=== PATIENT | male | born 1955 ===

== ENCOUNTER 2022-11-04 07:06 | Outpatient (REF) | payer MEDICARE, MEDICAID, SELFPAY ==
--- NOTE | ~2022-11-04 | XR_ITS ---
EXAMINATION: XR HIP, LEFT CLINICAL INFORMATION: M25.552 - Pain in left hip COMPARISON: None TECHNIQUE: Two views of the left hip. FINDINGS: No fracture, dislocation, destructive process. No definite hip joint narrowing. No erosive change or chondrocalcinosis. Lower left SI joint and pubis are unremarkable. XR/XR hip LT min 2V IMPRESSION: Unremarkable left hip.
[2022-11-04 07:19] LABS: MANUAL DIFF FLAG NO
[2022-11-04 07:34] LABS: Basophils Absolute Auto 0.1 X10*3/uL (0.0-0.2); Basophils Percent Auto 1.2 % (0-2); Eosinophils Absolute Auto 0.5 X10*3/uL (0.0-0.4); Eosinophils Percent Auto 6.8 % (0-4); Hematocrit 42.9 % (42.0-52.0); Hemoglobin 14.4 g/dl (14.0-18.0); Imm Gran Abs Auto 0.01 X10*3/uL (0.00-0.03); Imm Gran Pct Auto 0.1 % (0.0-0.4); Lymphocytes Absolute Auto 2.2 X10*3/uL (1.2-4.9); Lymphocytes Percent Auto 28.9 % (20-40); Mean Corpuscular HGB Conc 33.6 g/dl (31.0-36.0); Mean Corpuscular Hemoglobin 29.6 pg (27.0-33.0); Mean Corpuscular Volume 88.1 fL (80.0-98.0); Mean Platelet Volume 9.3 fL (9.4-12.4); Monocytes Absolute Auto 0.8 X10*3/uL (0.1-1.2); Monocytes Percent Auto 10.6 % (2-11); Neutrophils Percent Auto 52.4 % (45-73); Platelet Count 338 X10*3/uL (160-400); Red Blood Count 4.87 X10*6/uL (4.60-5.80); Red Cell Distribution Width 13.4 % (11.0-16.0); White Blood Count 7.7 X10*3/uL (4.8-10.8)
[2022-11-04 08:14] LABS: Alanine Aminotransferase 24 U/L (0-40); Albumin Level 4.4 g/dL (3.5-5.0); Alkaline Phosphatase 71 U/L (39-117); Anion Gap 10 (12-20); Aspartate Amino Transferase 22 U/L (5-37); Bilirubin Total 0.6 mg/dL (0.0-1.0); Blood Urea Nitrogen 19 mg/dL (9-16); Calcium 9.5 mg/dL (8.4-10.2); Carbon Dioxide 29 mmol/L (22-29); Chloride 107 mmol/L (96-108); Cholesterol 170 mg/dL; Estimated Glomerular Filt Rate 58; Glucose Random 97 mg/dL (60-115); HDL Cholesterol 55 mg/dL; LDL Cholesterol Calculated 98 mg/dl; Potassium 4.7 mmol/L (3.3-5.1); Sodium 141 mmol/L (135-145); Total Protein 6.8 g/dL (6.5-8.0); Triglycerides 86 mg/dL
[2022-11-04 08:32] LABS: PSA,Total (Free>4and<10) 14.51 ng/mL (0.00-4.00); TSH reflex Free T4 1.48 uIU/mL (0.32-4.0)
== END 2022-11-04 07:07 | disposition home or self-care (01) ==
LOC: HO.LAB 07:06
PROVIDERS: PCP Internal Medicine; Visit Provider Nurse Practitioner Family
DX: I10 Essential (primary) hypertension (principal); R97.20 Elevated prostate specific antigen [PSA]; M25.552 Pain in left hip; E78.00 Pure hypercholesterolemia, unspecified; Z13.29 Encounter for screening for other suspected endocrine disorder; Z12.5 Encounter for screening for malignant neoplasm of prostate
CPT/HCPCS: 36415; 73502; 80053; 80061; 84153; 84443; 85025

== ENCOUNTER 2022-11-11 08:27 | Outpatient (REF) | payer MEDICARE, MEDICAID, SELFPAY ==
[2022-11-11 16:21] LABS: Urine Cytology See Pathology rpt
== END 2022-11-11 08:28 | disposition home or self-care (01) ==
LOC: HO.LAB 08:27
PROVIDERS: PCP Internal Medicine; Visit Provider Nurse Practitioner Family
DX: Z13.9 Encounter for screening, unspecified (principal); R97.20 Elevated prostate specific antigen [PSA]
CPT/HCPCS: 88112; 99202

== ENCOUNTER 2022-11-12 09:06 | Outpatient (REF) | payer MEDICARE, MEDICAID, SELFPAY ==
[2022-11-12 11:05] LABS: PSA,Total (Free>4and<10) 6.81 ng/mL (0.00-4.00)
[2022-11-17 14:04] LABS: Free Prostate Spec Ag 1.6 ng/mL; Percent Free Prostate Spec Ag 27 % (calc) (>25)
== END 2022-11-12 09:07 | disposition home or self-care (01) ==
LOC: HO.LAB 09:06
PROVIDERS: PCP Internal Medicine; Referring Provider Internal Medicine; Visit Provider Nurse Practitioner Family
DX: Z12.5 Encounter for screening for malignant neoplasm of prostate (principal); R97.20 Elevated prostate specific antigen [PSA]
CPT/HCPCS: 36415; 84153; 84154

== ENCOUNTER 2022-11-17 10:30 | Outpatient (REF) | payer MEDICARE, MEDICAID, SELFPAY ==
--- NOTE | 2022-11-17 11:07 | PFT_ITS ---
FLOWS: 1. FEV1 97% of predicted at 3.18 L. 2. FVC 84% of predicted at 3.70 L. 3. FEV1 to FVC ratio 0.86. 4. No bronchodilator response. LUNG VOLUMES: 1. Total lung capacity 85% of predicted at 5.82 L. 2. Residual volume 75% of predicted at 1.75 L. 3. Slow vital capacity 90% of predicted at 4.08 L. 4. Expiratory reserve volume 47% of predicted at 0.60 L. 5. Diffusion capacity is normal. IMPRESSION: No obstructive or restrictive ventilatory defect. No bronchodilator response. Essentially normal pulmonary function test. MD ARACELIS Lou/MODL / [id number]
== END 2022-11-17 10:31 | disposition home or self-care (01) ==
LOC: HO.RESP 10:30
PROVIDERS: Visit Provider Nurse Practitioner Family
DX: R06.2 Wheezing (principal); M65.331 Trigger finger, right middle finger
CPT/HCPCS: 94060; 94727; 94729

== ENCOUNTER → 2022-11-20 09:21 | Outpatient (BNVA) | payer MEDICARE, MEDICAID, SELFPAY | PROVIDERS: PCP Internal Medicine; Visit Provider Nurse Practitioner Family | DX: R97.20 Elevated prostate specific antigen [PSA] (principal) | CPT/HCPCS: Q3014 ==

== ENCOUNTER → 2022-12-16 07:55 | Outpatient (BNVA) | payer MEDICARE, MEDICAID, SELFPAY | PROVIDERS: PCP Internal Medicine; Visit Provider Orthopaedic Surgery | DX: M65.331 Trigger finger, right middle finger (principal); R20.0 Anesthesia of skin | CPT/HCPCS: 20550; 99202; J1100 ==

== ENCOUNTER 2023-03-20 07:03 | Outpatient (REF) | payer MEDICARE, MEDICAID, SELFPAY ==
[2023-03-20 08:28] LABS: Prostate Specific Antigen 10.33 ng/mL (<0.05-4.0)
== END 2023-03-20 07:04 | disposition home or self-care (01) ==
LOC: HO.LAB 07:03
PROVIDERS: PCP Internal Medicine; Visit Provider Nurse Practitioner Family
DX: Z12.5 Encounter for screening for malignant neoplasm of prostate (principal); R97.20 Elevated prostate specific antigen [PSA]
CPT/HCPCS: 36415; 84153

== ENCOUNTER 2023-03-22 08:56 | Outpatient (AMB) | payer MEDICARE, MEDICAID, SELFPAY ==
--- NOTE | 2023-03-22 09:25 | MHC.OFFVIS ---
Intake Intake Visit Reasons: 4m/labs Intake Note: Patient is present for for follow up Elevated PSA (psa 10.33) Urology Medications: none Blood Thinner: none Drivability Technician Required: No Accompanied by: Self / Same As Patient Allergies No Known Allergies Allergy (Verified 03/22/23 10:17) Medication List - Last Reconciled 03/22/23 by CARLOZ Nichols atorvastatin 20 mg PO DAILY levofloxacin 500 mg PO daily 3 days lisinopril-hydrochlorothiazide 20-12.5 mg 1 tab PO DAILY HPI HPI Comments History of Present Illness Details Jim is a pleasant 67-year-old male patient of . He is being followed-up on today for elevated PSA. Of note, patient was seen approximately 4 months ago at which time his PSA had went down from 14.5 to 6.8 after treatment of prostatitis. Patient with previous KAREL noted to be boggy on left side. Patient presents to the office today for 4 month follow-up at which time his PSA has increased to 10.3 from 6.8. Of note, patient had previously been experiencing urinary issues. However, he denies any urinary issues at this time he reports since he finished antibiotic therapy for presumed prostatitis his symptoms have since subsided. He denies any known family history of prostate cancer. Discussed at length surveillance monitoring versus prostate biopsy verses MRI of the prostate for further assessment evaluation. Discussed risks and benefits of these interventions. At this time patient discusses he would like to have prostate biopsy performed. Discussed risks and benefits at length of prostate biopsy. PSAs are as follows: 11/04/22--14.5 11/12/22--6.8 with percent free 27% 03/20/23--10.3 When asked patient denies denies urinary urgency, urinary frequency, incontinence, nocturia, hematuria, dysuria, foul smelling urine, changes to urinary stream, flank pain, fever, and or chills. He is happy with his current voiding parameters. Patient discusses upcoming travel to [place] to visit his daughter who is 8 and will be celebrating his 68th birthday there. In office urinalysis results reviewed with the patient today. He otherwise offers no issues or concerns at this time. [facility] Medical History Depression Neck pain with history of cervical spinal surgery Trigger finger, right middle finger Urinary urgency Viral upper respiratory illness Wheezing Surgical History History of cholecystectomy Hx of tonsillectomy S/P right knee arthroscopy Family History Mother Breast cancer, Onset Age: 45 Asthma Father Type 1 diabetes Kidney transplanted HTN (hypertension) Sister Depression Maternal Grandmother Pancreatic cancer Maternal Aunt Pancreatic cancer Paternal Grandfather Type 2 diabetes Paternal Uncle Type 2 diabetes Social History Household Members: Spouse Housing: House Are you a primary healthcare consultant to a significant other at home: No Do you presently have visiting nurse or other home services: No 75 years or older and lives alone: No Alcohol intake: current Alcohol intake frequency: other Patient Tobacco Use Status: Never used Tobacco service: No Current occupational status: retired Current occupation: rt hand Cognitive needs: No Hearing needs: No Vision needs: Yes (glasses ) Review of Systems Const All systems reviewed & are unremarkable except as noted in HPI and below Reports as per HPI Eyes Reports no additional complaints ENT Reports no additional complaints Card Reports no additional complaints Resp Reports no additional complaints GI Reports no additional complaints Reports as per HPI Musc Reports no additional complaints Neuro Reports no additional complaints Psych Reports no additional complaints Endo Reports no additional complaints Edwin/Lymph Reports no additional complaints Aller/Immun Reports no additional complaints Physical Exam Const General: cooperative, healthy appearing, comfortable, no acute distress, well developed, alert and awake Orientation/consciousness: patient oriented x3 Limitations: no limitations HEENT Head: Yes normal to inspection, Yes normocephalic and Yes atraumatic Eyes General: appearance normal, both eyes and all related structures Neck Neck: Yes normal visual inspection and Yes trachea midline Chest Chest palpation & inspection: normal inspection of the chest Resp Effort & Inspection: normal respiratory effort and able to speak in complete sentences Cardio Rate: regular rate GI Inspection: Yes normal to inspection General: Yes no CVA tenderness Back/Spine/Pelvis Back: no CVA tenderness Skin General skin exam: no rashes or lesions noted Neuro General: patient oriented x3 Extrem General: Yes normal to inspection Psych Appearance: grossly normal Mental Status: mental status grossly normal Speech and movement: Normal speech and movement present and Clear speech present Affect: normal affect Attitude: cooperative Thought process: Normal thought process present Thought content: Normal thought content present Insight: Good insight present (Psych) Judgement: Good judgement present (Psych) Results AMB Urinalysis, Automated UA Leukoctes 125 Kendall/uL Last Edit by Francheska Mike on 03/22/23 09:50 UA Nitrite Last Edit by Francheska Mike on 03/22/23 09:50 UA Urobilinogen 0.2 mg/dL Last Edit by Francheska Mike on 03/22/23 09:50 UA Protein 0 mg/dL Last Edit by Francheska Mike on 03/22/23 09:50 UA pH 5.5 Last Edit by Francheska Mike on 03/22/23 09:50 UA Blood 25 Jigar/uL Last Edit by Francheska Mike on 03/22/23 09:50 UA Specific [place] 1.015 Last Edit by Francheska Mike on 03/22/23 09:50 UA Ketone Negative Last Edit by Francheska Mike on 03/22/23 09:50 UA Bilirubin 0 mg/dL Last Edit by Francheska Mike on 03/22/23 09:50 UA Glucose 0 mg/dL Last Edit by Francheska Mike on 03/22/23 09:50 Results Reviewed Results Reviewed: Laboratory Last Values Urine pH (Auto) 5.5 03/22/23 09:28 Specific [place] (Auto) 1.015 03/22/23 09:28 Urine Protein (Auto) 0 mg/dL 03/22/23 09:28 Glucose (UA)(Auto) 0 mg/dL 03/22/23 09:28 Urine Ketones (Auto) Negative 03/22/23 09:28 Urine Blood (Auto) 25 Jigar/uL 03/22/23 09:28 Urine Bilirubin (Auto) 0 mg/dL 03/22/23 09:28 Urine Urobilinogen (Auto) 0.2 mg/dL 03/22/23 09:28 Leukocyte Esterase (Auto) 125 Kendall/uL 03/22/23 09:28 Assessment & Plan Assessment & Plan (1) Elevated PSA: Code(s): R97.20 - Elevated prostate specific antigen [PSA] Plan: Plan Risks and benefits regarding trans rectal ultrasound with prostate biopsy were discussed.? Options of continued surveillance, no treatment and biopsy were offered. The risks include but are not limited to, urinary tract infection, sepsis, difficulty urinating, bleeding into the rectum or bladder that requires intervention and transfusion,and failure to diagnose prostate cancer. The patient understands the options and the risks involved. They wish to proceed. Printed information was provided to ensure he remains off anticoagulation for the appropriate length of time. He may require cardiology or PCP clearance.? An antibiotic will be administered prior to, and following the procedure Plan In office urinalysis results reviewed with the patient today. Recent PSA results reviewed with the patient today. Discussed at length surveillance monitoring verses MRI of the prostate verses prostate biopsy; discussed risks and benefits of all mentioned interventions. Discussed antibiotic therapy day before, day of, and day after procedure; prescription provided Patient denies any urinary issues or concerns at this time; he is happy with his current voiding parameters Will schedule for prostate biopsy as discussed; follow-up status post prostate biopsy per Dr. King's orders; or sooner with any issues, concerns, and or questions. Orders: Orders AMB Urinalysis Automated Today Z13.9 - Encounter for screening, unspecified Medications: New levofloxacin take 1 tablet day before procedure, 1 tablet day of procedure and 1 tablet day after procedure 500 mg PO daily 3 days 3 tabs 0RF Patient Instructions: The patient had an opportunity to ask questions regarding the treatment plan. All questions were answered. Physical exam, labs, and imaging were discussed and reviewed in detail. As well as risks, benefits, and discussion of treatment choices. No major barriers to understanding were identified. The patient expressed understanding and agreement with the above treatment plan. The patient was made aware they should contact our office by phone for worsening of their current condition, the appearance of new symptoms, or with any questions or concerns. Compliance is encouraged with any medications and follow up testing that is ordered. It is a privilege to be allowed the opportunity to participate in? your urological care.? Again, if you have any questions or concerns If you have any questions or concerns please do not hesitate to contact me. The office is [phone]. This note is constructed using voice recognition software. While every effort has been made to ensure accuracy chlorine cells operator errors may have been included. Yours sincerely, CARLOZ Nichols Coding Level of Care Code Est Pt Level 4 (61673) Diagnoses Elevated PSA R97.20
== END 2023-03-22 09:57 | disposition home or self-care (01) ==
PROVIDERS: Visit Provider Nurse Practitioner Family
DX: R97.20 Elevated prostate specific antigen [PSA] (principal)
CPT/HCPCS: 99214

== ENCOUNTER → 2023-03-22 08:56 | Outpatient (BNVA) | payer MEDICARE, MEDICAID, SELFPAY | PROVIDERS: Visit Provider Nurse Practitioner Family | DX: R97.20 Elevated prostate specific antigen [PSA] (principal) | CPT/HCPCS: 99212 ==

== ENCOUNTER 2023-03-23 12:27 | Outpatient (AMB) | payer MEDICARE, MEDICAID, SELFPAY ==
[2023-03-23 12:59] VITALS: BMI 25.4
--- NOTE | 2023-03-23 12:59 | MHC.OFFVIS ---
Intake Vital Signs 03/23/23 12:59 Height 5 ft 9 in Weight 172 lb BMI 25.4 Intake Visit Reasons: O/V S/P RT MF trig inj/ inj didnt help Intake Note: Jim 67 yr old male presents today s/p Right middle finger injection from 12/16/22. states injection helped somewhat with pain but finger continues to lock. Patient would like to discuss surgery but will not be ready until July. Allergies No Known Allergies Allergy (Verified 03/22/23 10:17) HPI O/V S/P RT MF trig inj/ inj didnt help HPI Details Jim is a 67 year old right hand dominant man who presents for a follow up of his right middle trigger finger, S/P injection on 12/16/22. He says this injection helped somewhat but his finger continues to lock painfully. His locking is mostly in the mornings and he continues to have some soreness. He would like to have surgery but would not be ready until July while he is golfing. [facility] Medical History Depression Neck pain with history of cervical spinal surgery Trigger finger, right middle finger Urinary urgency Viral upper respiratory illness Wheezing Surgical History History of cholecystectomy Hx of tonsillectomy S/P right knee arthroscopy Family History Mother Breast cancer, Onset Age: 45 Asthma Father Type 1 diabetes Kidney transplanted HTN (hypertension) Sister Depression Maternal Grandmother Pancreatic cancer Maternal Aunt Pancreatic cancer Paternal Grandfather Type 2 diabetes Paternal Uncle Type 2 diabetes Social History Household Members: Spouse Housing: House Are you a primary care center manager to a significant other at home: No Do you presently have visiting nurse or other home services: No 75 years or older and lives alone: No Alcohol intake: current Alcohol intake frequency: other Patient Tobacco Use Status: Never used Tobacco service: No Current occupational status: retired Current occupation: rt hand Cognitive needs: No Hearing needs: No Vision needs: Yes (glasses ) Review of Systems Const All systems reviewed & are unremarkable except as noted in HPI and below Physical Exam Vital Signs: BMI result Body Mass Index 25.4 Const General: no acute distress and alert Orientation/consciousness: patient oriented x3 Neuro General: patient oriented x3 Extrem Other: Evaluation of Right Upper Extremity: The patient is alert, oriented, and in no acute distress Neuro: Dense numbness to the pad of his left thumb, normal sensation to the tips of all other digits bilaterally No thenar or intrinsic wasting Good APB muscle belly firing and good finger cross Vascular: Cap refill brisk ROM: He can make a fist and extend all his digits Visible locking and catching of the middle finger Tender over the a1 macy of the middle finger Small bump over the middle finger a1 macy that may be a possible retinacular cyst Psych Appearance: grossly normal Affect: normal affect Attitude: cooperative Assessment & Plan Assessment & Plan (1) Trigger finger, right middle finger: Code(s): M65.331 - Trigger finger, right middle finger (2) Numbness of left thumb: Code(s): R20.0 - Anesthesia of skin Plan Assessment & Plan: 1. Right middle trigger finger, S/P injection Date of Injection: 12/16/22 I educated him about this condition I discussed operative and non operative treatment options. 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 Left thumb numbness Dense numbness to the pad of the thumb only, constant, and present since at least 2017 and did not change following his C-spine fusion. Normal sensation to all other digits No intervention necessary at this time. I educated him on the symptoms of carpal tunnel syndrome, if any other fingers begin to experience numbness, intermittent but daily, then he should contact the clinic to discuss a NCS Scribed for Rose Marie Diaz MD by Fransico Jaramillo, medical and health services manager, on 03/23/23 at 1:35 PM, EST. Coding Level of Care Code Est Pt Level 3 (96600) Diagnoses Trigger finger, right middle finger M65.331 Numbness of left thumb R20.0
== END 2023-03-23 13:43 | disposition home or self-care (01) ==
PROVIDERS: PCP Internal Medicine; Visit Provider Orthopaedic Surgery
DX: M65.331 Trigger finger, right middle finger (principal); R20.0 Anesthesia of skin
CPT/HCPCS: 99213

== ENCOUNTER → 2023-03-23 12:27 | Outpatient (BNVA) | payer MEDICARE, MEDICAID, SELFPAY | PROVIDERS: PCP Internal Medicine; Visit Provider Orthopaedic Surgery | DX: M65.331 Trigger finger, right middle finger (principal); R20.0 Anesthesia of skin | CPT/HCPCS: 99212 ==

== ENCOUNTER 2023-06-28 09:36 | Outpatient (AMB) | payer MEDICARE, SELFPAY ==
--- NOTE | 2023-06-28 09:37 | A.OFFPC_ITS ---
Vital Signs 06/28/23 09:38 Height 5 ft 9 in Weight 170 lb 0.2 oz BMI 25.1 BP 166/90 H Blood Pressure Location Lt brachial Position Sitting Pulse 70 Pulse Source Pulse Oximeter Temp Source Skin Pulse Oximetry (%) 97 Oxygen Delivery Method Room Air Intake Visit Reasons: Annual exam Intake Note: Patient is here today for a physical. Director Software Development Required: No Allergies No Known Allergies Allergy (Verified 06/28/23 09:38) Medication List - Last Reconciled 06/28/23 by Refugio Maddox MD atorvastatin 20 mg PO DAILY lisinopril-hydrochlorothiazide 20-25 mg 1 tab PO DAILY Tobacco use date assessed: 06/28/23 Fall risk assessment: No Falls in past year Last assessed Fall Risk: 06/28/23 Dental Screening Dental Screen Date: 06/28/23 Did you have a dental visit in the last 12 months?: Yes Did you have a dental problem in the last 6 months where you did not have access to dental care?: No Was dental information given to patient?: Patient has dentist HPI Annual exam HPI Details 68-year-old male with hypertension hyper cholesterolemia elevated PSA and renal insufficiency coming in for physical exam. Last seen in November 2022. Last colonoscopy 2014. Review of the notes in March 2023 has seen orthopedics for follow-up on right middle finger injection for trigger finger December 2022 patient was advised surgery also noted small bump of middle finger the right possibly written ocular cyst concern also about a left thumb carpal tunnel syndrome. As for the elevated PSA follows up with urology antibiotic treatment done. prostate biopsy 2 weeks . R middle finger - trigger finger surgery. R thumb numbness- not better. decline pneumonia shot, flu shot COVID-19 Concern that the blood pressure is high PFSH Medical History Depression Neck pain with history of cervical spinal surgery Trigger finger, right middle finger Urinary urgency Viral upper respiratory illness Wheezing Surgical History History of cholecystectomy Hx of tonsillectomy S/P right knee arthroscopy Family History Mother Breast cancer, Onset Age: 45 Asthma Father Type 1 diabetes Kidney transplanted HTN (hypertension) Sister Depression Maternal Grandmother Pancreatic cancer Maternal Aunt Pancreatic cancer Paternal Grandfather Type 2 diabetes Paternal Uncle Type 2 diabetes Social History (Updated 06/28/23 @ 10:06 by Refugio Maddox MD) Household Members: Spouse Housing: House Are you a primary health care coach to a significant other at home: No Do you presently have visiting nurse or other home services: No 75 years or older and lives alone: No Alcohol intake: current Alcohol intake frequency: other Patient Tobacco Use Status: Never used Tobacco service: No Current occupational status: retired Current occupation: rt hand Cognitive needs: No Hearing needs: No Vision needs: Yes (glasses ) Questionnaire PHQ-9 Over the last 2 weeks, how often have you been bothered by any of the following problems? 1. Little interest or pleasure in doing things: not at all 2. Feeling down, depressed, or hopeless: several days 3. Trouble falling or staying asleep, or sleeping too much: not at all 4. Feeling tired or having little energy: not at all 5. Poor appetite or overeating: not at all 6. Feeling bad about yourself - or that you are a failure or have let yourself or your family down: not at all 7. Trouble concentrating on things, such as reading the newspaper or watching television: not at all 8. Moving or speaking so slowly that other people could have noticed. Or the opposite - being so fidgety or restless that you have been moving around a lot more than usual: not at all 9. Thoughts that you would be better off or of hurting yourself in some way: not at all Total score: 1 Depression Screening Interpretation: Positive Depression Screening Done: Yes Source: Developed by Drs. Jimy Head, Elizabeth Lay, Christopher Donahue and colleagues, with an educational niko from [employer]. Thrive Questionnaire Date Thrive assessed: 11/03/22 AUDIT C Alcohol Use Questionnaire (AUDIT-C) 1. How often do you have a drink containing alcohol?: Never 3. How often do you have six or more drinks on one occasion?: Never Total Score: 0 JUAN J-7 AMB Questionnaire JUAN J-7 Date JUAN J - 7 assessed: 06/28/23 Feeling nervous, anxious, or on edge: 1 = Several days Not being able to stop or control worryin = Several days Worrying too much about different things: 0 = Not at all Trouble relaxin = Not at all Being so restless that it is hard to sit still: 0 = Not at all Becoming easily annoyed or irritable: 0 = Not at all Feeling afraid as if something awful might happen: 0 = Not at all Total JUAN J-7 score (0-4 normal; 5-9 mild; 10-14 moderate; 15-21 severe): 2 Source: Developed by Drs. Jimy Head, Elizabeth Lay, Christopher Donahue and colleagues, with an educational niko from [employer]. Review of Systems Const Denies poor appetite and Denies weakness Eyes Denies no additional complaints ENT Reports Normal hearing present, Denies dizziness, Denies nasal congestion, Denies tinnitus and Denies sore throat Card Denies chest pain, Denies syncope, Denies rapid heart rate and Denies dyspnea Resp Denies cough and Denies dyspnea GI Denies change in stool character, Reports constipation, Denies diarrhea, Denies nausea and Denies vomiting Denies dysuria and Denies urinary frequency Neuro Reports Normal hearing present, Denies confusion, Denies dizziness, Denies syncope and Denies weakness Psych Denies confusion Physical exam (Primary Care) Vital Signs: Last Vital Signs Pulse 70 06/28/23 09:38 BP 166/90 H 06/28/23 09:38 Pulse Ox 97 06/28/23 09:38 Oxygen Delivery Method Room Air 06/28/23 09:38 BMI result Body Mass Index 25.1 Tobacco/Smoking Status: Tobacco use Status Tobacco use date assessed 06/28/23 06/28/23 09:39 Patient Tobacco Use Status Never used Tobacco 06/28/23 09:39 PHQ-9: PHQ-9 Score PHQ-9: Total score 1 06/28/23 10:00 Depression Screening Interpretation: Positive Thrive Assessment: Date of Thrive Assessment Date Thrive assessed 11/03/22 06/28/23 09:39 Const General: No confusion Orientation/consciousness: No confusion HENMT Head: Yes normocephalic Ears: external ears normal and TM's normal bilaterally Face and sinus: Yes normal facial exam Mouth: moist mucous membranes Throat: Yes tonsils normal Eyes Conjunctivae: conjunctivae normal Pupils: Equal, round and reactive pupils present and Pupil accommodation reflex normal Direct Ophthalmoscopy: normal light reflex Neck Neck: No lymphadenopathy Thyroid: Thyroid normal Chest Chest palpation & inspection: normal inspection of the chest Resp Effort & Inspection: normal respiratory effort and no audible wheezes Auscultation: clear to auscultation bilaterally, no crackles, no wheezes and lung sounds not diminished Cardio Rate: regular rate Rhythm: regular rhythm Peripheral pulses: radial pulses present and dorsalis pedis present GI Other: guaiac negative prostate enlarged Palpation (GI): no masses Auscultation: normal bowel sounds and normoactive bowel sounds Rectal Exam - Male: Yes deferred Male General Exam: Yes normal external exam Skin General skin exam: no rashes or lesions noted Rashes: no rashes Neuro General: No confusion Cranial nerves: Yes Equal, round and reactive pupils present and Yes Normal hearing present Cognition (Neuro): normal cognition Gait exam (Neuro): Normal gait present Motor exam (neuro): 5/5 motor strength present throughout Deep tendon reflexes (DTR's): Right brachioradialis reflex intensity grade: 2+, Left brachioradialis reflex intensity grade: 2+, Right patellar reflex intensity grade: 2+ and Left patellar reflex intensity grade: 2+ Extrem General: No edema Assessment and Plan Assessment & Plan (1) Annual physical exam: Code(s): Z00.00 - Encounter for general adult medical examination without abnormal findings (2) Hypertension: Code(s): I10 - Essential (primary) hypertension Plan: Continue with blood pressure medication. Decrease salt intake and exercise patient on lisinopril hydrochlorothiazide 20/12.5 mg once a day (3) Hypercholesteremia: Code(s): E78.00 - Pure hypercholesterolemia, unspecified Plan: Avoid fried foods, chicken skin, eggs, butter margarine, pastries and meat. Be it pork or beef they have a lot of cholesterol LDL goal of less than 130 and triglyceride of less than 150. Patient on atorvastatin 20 mg once a day (4) Trigger finger, right middle finger: Code(s): M65.331 - Trigger finger, right middle finger Plan: Patient follows up with orthopedic status post surgery (5) Elevated PSA: Code(s): R97.20 - Elevated prostate specific antigen [PSA] Plan: Patient follows up with urology also was given an antibiotic treated for prostatitis (6) Numbness of left thumb: Code(s): R20.0 - Anesthesia of skin (7) Prostate enlargement: Code(s): N40.0 - Benign prostatic hyperplasia without lower urinary tract symptoms Plan: PAtent is scheduled to have a biopsy Medications: New lisinopril-hydrochlorothiazide 20-25 mg 1 tab PO DAILY 30 tabs 3RF I10 - Essential (primary) hypertension Refilled atorvastatin 20 mg PO DAILY 90 tabs 3RF I10 - Essential (primary) hypertension Discontinued lisinopril-hydrochlorothiazide 20-12.5 mg Discontinued Reason: Doctor's Order 1 tab PO DAILY 30 tabs 6RF I10 - Essential (primary) hypertension Coding Level of Care Code Est Pt Prev Care >65y(60814) Diagnoses Annual physical exam Z00.00 Hypertension I10 Hypercholesteremia E78.00 Trigger finger, right middle finger M65.331 Elevated PSA R97.20 Numbness of left thumb R20.0 Prostate enlargement N40.0
[2023-06-28 09:38] VITALS: BP 166/90; PULSE 70; O2SAT 97; BMI 25.1
== END 2023-06-28 10:28 | disposition home or self-care (01) ==
PROVIDERS: Visit Provider Internal Medicine
DX: Z00.00 Encounter for general adult medical examination without abnormal findings (principal); I10 Essential (primary) hypertension; E78.00 Pure hypercholesterolemia, unspecified; M65.331 Trigger finger, right middle finger; R97.20 Elevated prostate specific antigen [PSA]; R20.0 Anesthesia of skin; N40.0 Benign prostatic hyperplasia without lower urinary tract symptoms
CPT/HCPCS: 99213; 99397

== ENCOUNTER 2023-07-09 07:17 | Outpatient (REF) | payer MEDICARE, SELFPAY ==
[2023-07-09 07:45] VITALS: BP 141/89; PULSE 71; RESP 16; TEMP 36.4; O2SAT 97; BMI 25.1
--- NOTE | 2023-07-09 08:49 | W.PM.OPN ---
Operative Note Operative Note Date of Service: 07/09/23 Narrative: PreOperative Diagnosis:? ? Elevated PSA Post Operative Diagnosis:??Elevated PSA Procedure:?1. Transrectal ultrasound guided biopsy of the prostate 12 core 2. Transrectal ultrasound measurement of prostate 3. Transrectal ultrasound guided pudendal nerve block Surgeon:?Dr Eliazar Duran Anesthesia:? Local, 1% lidocaine Indications for procedure: Elevated PSA Procedure: Preoperative antibiotics confirmed. After informed consent was verified the patient was placed on the procedure table in left lateral position. Patient identity confirmed. Safety pause time-out performed. Digital rectal exam performed to dilate rectal sphincter, iodine mixed with lubricant jelly 30 cc placed per rectum. Ultrasound probe was placed per rectum. The prostate was visualized. The prostate was measured width 5.47 cm, height 5.86 cm, length 4.60 cm with a volume of 77.1 mL. An ultrasound guided pudendal nerve block was performed using 10 cc of 1% lidocaine. A 12 core biopsy was performed from the left base, left mid, left apex and right base, mid, apex 2 biopsies from each section. The ultrasound probe was removed and digital palpation of the prostate for 1-2 minutes for hemostasis was performed. The patient tolerated the procedure well. Complications: None
[2023-07-09 08:55] VITALS: BP 102/65; PULSE 58; RESP 16; O2SAT 96
[2023-07-09 09:03] VITALS: BP 101/70; PULSE 59; RESP 16; O2SAT 99
[2023-07-09 09:12] VITALS: BP 103/70; PULSE 63; RESP 16; O2SAT 95
[2023-07-09 09:29] VITALS: BP 113/64; PULSE 64; RESP 16; O2SAT 98
== END 2023-07-09 07:18 | disposition home or self-care (01) ==
LOC: HO.MS 07:17
PROVIDERS: PCP Internal Medicine; Visit Provider Urology
PROC: (CPT 55700; principal; 2023-07-09 08:00)
DX: R97.20 Elevated prostate specific antigen [PSA] (principal)
CPT/HCPCS: 55700; 76942; 88305

== ENCOUNTER → 2023-07-09 07:17 | Outpatient (BNV) | payer MEDICARE, SELFPAY | PROVIDERS: PCP Internal Medicine; Visit Provider Urology | DX: R97.20 Elevated prostate specific antigen [PSA] (principal) | CPT/HCPCS: 55700; 76942 ==

== ENCOUNTER 2023-07-19 08:33 | Outpatient (AMB) | payer MEDICARE, MEDICAID, SELFPAY ==
--- NOTE | 2023-07-19 08:36 | MHC.OFFVIS ---
Intake Intake Visit Reasons: /V S/P RT MF trig inj/ inj didnt help Intake Note: Jim 68 yr old male presents today for his follow up visit S/P Right middle finger trigger injection 12/16/22. Patient states injection did not help and would like to discuss surgery. Allergies No Known Allergies Allergy (Verified 07/19/23 08:40) HPI /V S/P RT MF trig inj/ inj didnt help HPI Details Patient is a 68-year-old [id number] man whose chief complaint is his right middle finger trigger finger. He notices that it locks and catches pretty much every day, especially in the morning. He also feels a little bump right over the A1 macy area that is bothersome. He is interested in surgery. [facility] Medical History Depression Neck pain with history of cervical spinal surgery Trigger finger, right middle finger Urinary urgency Viral upper respiratory illness Wheezing Surgical History History of cholecystectomy Hx of tonsillectomy S/P right knee arthroscopy Family History Mother Breast cancer, Onset Age: 45 Asthma Father Type 1 diabetes Kidney transplanted HTN (hypertension) Sister Depression Maternal Grandmother Pancreatic cancer Maternal Aunt Pancreatic cancer Paternal Grandfather Type 2 diabetes Paternal Uncle Type 2 diabetes Social History Household Members: Spouse Housing: House Are you a primary chiropractic care to a significant other at home: No Do you presently have visiting nurse or other home services: No 75 years or older and lives alone: No Alcohol intake: current Alcohol intake frequency: other Patient Tobacco Use Status: Never used Tobacco service: No Current occupational status: retired Current occupation: rt hand Cognitive needs: No Hearing needs: No Vision needs: Yes (glasses ) Physical Exam Extrem Other: The patient was alert oriented and in no acute distress. He can make a fist and extend all his digits in his right hand. He has visible catching of his right middle finger. He is most tender to palpation over the right middle finger A1 macy, and there is a palpable small mass that measures perhaps 3 mm in diameter directly over the A1 macy. This appears to be most consistent with a retinacular ganglion. Cap refill brisk sensation intact to the tips of the digits. Assessment & Plan Assessment & Plan (1) Trigger finger, right middle finger: Code(s): M65.331 - Trigger finger, right middle finger (2) Retinacular ganglion, volar (VRG): Code(s): M67.40 - Ganglion, unspecified site Plan Assessment & Plan: 1. Right middle trigger finger Date of Injection: 12/16/22 2. Right middle finger volar retinacular ganglion I educated him about this condition I discussed operative and non operative treatment options. He wishes to proceed with surgery. The risks and benefits of operative treatment were discussed with the patient and the patient wishes to proceed with surgery. These risks include, but are not limited to risk of damage to blood vessels, nerves, tendons, infection, recurrence, incomplete relief of preoperative symptoms, persistent pain, possible need for further surgery and the risks associated with regional blocks and anesthesia. The plan is to take the patient to the operating room sometime in the next few weeks for the following procedures: 1. Right middle finger trigger release 2. Right middle finger excision of volar retinacular ganglion All of the preoperative paperwork including the consent was filled out today. All the patient's questions were answered. The patient understands that they will be contacted by our power cutting machine operator soon to schedule this procedure 3. Left thumb numbness Dense numbness to the pad of the thumb only, constant, and present since at least 2018 and did not change following his C-spine fusion. Normal sensation to all other digits No intervention necessary at this time. I educated him on the symptoms of carpal tunnel syndrome, if any other fingers begin to experience numbness, intermittent but daily, then he should contact the clinic to discuss a NCS Coding Level of Care Code Est Pt Level 4 (10403) Diagnoses Trigger finger, right middle finger M65.331 Retinacular ganglion, volar (VRG) M67.40
== END 2023-07-19 11:12 | disposition home or self-care (01) ==
PROVIDERS: PCP Internal Medicine; Visit Provider Orthopaedic Surgery
DX: M65.331 Trigger finger, right middle finger (principal); M67.40 Ganglion, unspecified site
CPT/HCPCS: 99214

== ENCOUNTER → 2023-07-19 08:33 | Outpatient (BNVA) | payer MEDICARE, MEDICAID, SELFPAY | PROVIDERS: PCP Internal Medicine; Visit Provider Orthopaedic Surgery | DX: M65.331 Trigger finger, right middle finger (principal); M67.40 Ganglion, unspecified site | CPT/HCPCS: 99212 ==

== ENCOUNTER 2023-07-23 09:54 | Outpatient (AMB) | payer MEDICARE, SELFPAY ==
--- NOTE | 2023-07-23 09:56 | A.OFFVIS_ITS ---
Intake Intake Visit Reasons: prostate bx results Intake Note: Patient is present for for follow up Prostate bx Results Urology Medications: none Blood Thinner: none Web Coordinator Required: No Accompanied by: Self / Same As Patient Allergies No Known Allergies Allergy (Verified 07/19/23 08:40) HPI HPI Comments History of Present Illness Details Jim is a 68-year-old male who presents today to the office for a follow-up. 07/23/2023? He is followed today for prostate biopsy results. He was initially evaluated by [facility]. Lotus Fraser for elevated PSA. Patient has had prostate biopsy done on 07/09/2023. Patient states that he had a flare up of hemorrhoids after the procedure, and he is taking OTC preparation H medication. On Transrectal US estimated volume of the prostate was 77.1 mL. I have discussed the biopsy results: are benign with Scattered foci of acute and chronic inflammation throughout. 07/23/2023: Evaluation today?UA?leukocyt es: negative; blood: 1 +. Review of charts: PSAs are as follows: 11/04/22--14.5 11/12/22--6.8 with percent free 27% 03/20/23--10.3 07/23/2023: Plan: Follow-up in 6 months with [facility] and PSA screening at that time. [facility] Medical History Trigger finger, right middle finger Wheezing Viral upper respiratory illness Urinary urgency Depression Neck pain with history of cervical spinal surgery Surgical History Hx of tonsillectomy S/P right knee arthroscopy History of cholecystectomy Family History Mother Breast cancer, Onset Age: 45 Asthma Father Type 1 diabetes Kidney transplanted HTN (hypertension) Sister Depression Maternal Grandmother Pancreatic cancer Maternal Aunt Pancreatic cancer Paternal Grandfather Type 2 diabetes Paternal Uncle Type 2 diabetes Social History Household Members: Spouse Housing: House Are you a primary managed care provider to a significant other at home: No Do you presently have visiting nurse or other home services: No 75 years or older and lives alone: No Alcohol intake: current Alcohol intake frequency: other Patient Tobacco Use Status: Never used Tobacco service: No Current occupational status: retired Current occupation: rt hand Cognitive needs: No Hearing needs: No Vision needs: Yes (glasses ) Review of Systems Const All systems reviewed & are unremarkable except as noted in HPI and below Denies poor appetite and Denies weakness Eyes Denies no additional complaints ENT Reports Normal hearing present, Denies dizziness, Denies nasal congestion, Denies tinnitus and Denies sore throat Card Denies chest pain, Denies syncope, Denies rapid heart rate and Denies dyspnea Resp Denies cough and Denies dyspnea GI Denies change in stool character, Reports constipation, Denies diarrhea, Denies nausea and Denies vomiting Denies dysuria and Denies urinary frequency Musc Reports no additional complaints Skin/Breast Denies rash and Denies unusual bruising Neuro Reports Normal hearing present, Denies confusion, Denies dizziness, Denies syncope and Denies weakness Psych Denies confusion Endo Reports no additional complaints Edwin/Lymph Reports no additional complaints Aller/Immun Reports no additional complaints Physical Exam Const General: No confusion Orientation/consciousness: No confusion Neuro General: No confusion Cranial nerves: Yes Normal hearing present Results AMB Urinalysis, Automated UA Leukoctes 0 Kendall/uL Last Edit by GUIDO Roman on 07/23/23 10:28 UA Nitrite Negative Last Edit by GUIDO Roman on 07/23/23 10:28 UA Urobilinogen 0.2 mg/dL Last Edit by GUIDO Roman on 07/23/23 10:2 8 UA Protein 0 mg/dL Last Edit by GUIDO Roman on 07/23/23 10:28 UA pH 6.0 Last Edit by GUIDO Roman on 07/23/23 10:28 UA Blood 25 Jigar/uL Last Edit by GUIDO Roman on 07/23/23 10:28 1+ Darshan Michael 07/23/23 10:28 UA Specific [place] 1.015 Last Edit by GUIDO Roman on 07/23/23 10: 28 UA Ketone Negative Last Edit by GUIDO Roman on 07/23/23 10:28 UA Bilirubin 0 mg/dL Last Edit by GUIDO Roman on 07/23/23 10:28 UA Glucose 0 mg/dL Last Edit by GUIDO Roman on 07/23/23 10:28 Results Reviewed Results Reviewed: Laboratory Last Values Urine pH (Auto) 6.0 07/23/23 10:21 Specific [place] (Auto) 1.015 07/23/23 10:21 Urine Protein (Auto) 0 mg/dL 07/23/23 10:21 Glucose (UA)(Auto) 0 mg/dL 07/23/23 10:21 Urine Ketones (Auto) Negative 07/23/23 10:21 Urine Blood (Auto) 25 Jigar/uL 07/23/23 10:21 Urine Nitrite (Auto) Negative 07/23/23 10:21 Urine Bilirubin (Auto) 0 mg/dL 07/23/23 10:21 Urine Urobilinogen (Auto) 0.2 mg/dL 07/23/23 10:21 Leukocyte Esterase (Auto) 0 Kendall/uL 07/23/23 10:21 Collected: 07/09/23 Location: [facility] Received: 07/09/23 Diagnosis Prostate, needle core biopsies: A. Left base lateral: Benign prostatic tissue. B. Left base medial: Benign prostatic tissue. C. Left mid lateral: Benign prostatic tissue. D. Left mid medial: Benign prostatic tissue. E. Left apex lateral: Benign prostatic tissue. F. Left apex medial: Benign prostatic tissue. G. Right base lateral: Benign prostatic tissue. H. Right base medial: Benign prostatic tissue. I. Right mid lateral: Benign prostatic tissue. J. Right mid medial: Benign prostatic tissue. K. Right apex lateral: Benign prostatic tissue. L. Right apex medial: Benign prostatic tissue. Comment: Scattered foci of acute and chronic inflammation throughout. Clinical History Elevated PSA Microscopic Description Microscopic sections reviewed. Material Received A: Left base lateral B: Left base medial Assessment & Plan Assessment & Plan (1) Elevated PSA: Code(s): R97.20 - Elevated prostate specific antigen [PSA] (2) BPH (benign prostatic hyperplasia): Code(s): N40.0 - Benign prostatic hyperplasia without lower urinary tract symptoms (3) Chronic prostatitis: Code(s): N41.1 - Chronic prostatitis Plan Follow-up in 6 months with [facility] and PSA screening at that time. Orders: Orders PSA,Total (Free>4and<10) 5 Months N40.0 - Benign prostatic hyperplasia without lower urinary tract symptoms, R97.20 - Elevated prostate specific antigen [PSA] AMB Urinalysis Automated Today Z13.9 - Encounter for screening, unspecified Patient Instructions: The patient had an opportunity to ask questions regarding treatment plan. All questions were answered. Imaging, Laboratory studies and physical exam results were discussed and reviewed in detail. No major barriers to understanding were identified. The patient expressed understanding and agreement with the above treatment plan. The patient is aware they should contact our office by phone for worsening of their current condition or the appearance of new symptoms. Compliance is encouraged with any medications and followup testing that is ordered. It is a privilege to be allowed the opportunity to participate in the urologic care of your patient. If you have any questions or concerns regarding treatment for the above conditions please do not hesitate to contact me. The office telephone contact is [phone]. This note is constructed in part using voice recognition software. While every effort has been made to ensure accuracy flatwork ironer errors may have been included. Yours sincerely, Eliazar Duran MD Coding Level of Care Code Est Pt Level 4 (05689) Diagnoses Elevated PSA R97.20 BPH (benign prostatic hyperplasia) N40.0 Chronic prostatitis N41.1
== END 2023-07-23 10:41 | disposition home or self-care (01) ==
PROVIDERS: PCP Internal Medicine; Visit Provider Urology
DX: R97.20 Elevated prostate specific antigen [PSA] (principal); N40.0 Benign prostatic hyperplasia without lower urinary tract symptoms; N41.1 Chronic prostatitis; Z13.9 Encounter for screening, unspecified
CPT/HCPCS: 99214

== ENCOUNTER → 2023-07-23 09:54 | Outpatient (BNVA) | payer MEDICARE, SELFPAY | PROVIDERS: PCP Internal Medicine; Visit Provider Urology | DX: R97.20 Elevated prostate specific antigen [PSA] (principal); N40.0 Benign prostatic hyperplasia without lower urinary tract symptoms; N41.1 Chronic prostatitis | CPT/HCPCS: 81003; 99212 ==

== ENCOUNTER 2023-10-12 08:36 | Outpatient (AMB) | payer MEDICARE, SELFPAY ==
[2023-10-12 08:43] VITALS: BP 152/86; PULSE 72; O2SAT 97; BMI 24.7
--- NOTE | 2023-10-12 08:43 | MHC.PC.OV ---
Vital Signs 10/12/23 08:43 Height 5 ft 9 in Weight 167 lb 0.6 oz BMI 24.7 BP 152/86 H Blood Pressure Location Lt brachial Position Sitting Pulse 72 Pulse Source Pulse Oximeter Pulse Oximetry (%) 97 Oxygen Delivery Method Room Air Intake Visit Reasons: 3 MONTH F/U Intake Note: Patient is here to follow up on 3 months Burning Supervisor Required: No Allergies No Known Allergies Allergy (Verified 10/12/23 08:46) Medication List - Last Reconciled 10/12/23 by Refugio Maddox MD atorvastatin 20 mg PO DAILY hydrocortisone 2.5% (Proctosol HC) 1 appl [place] BID-QID PRN lisinopril-hydrochlorothiazide 20-25 mg 1 tab PO DAILY Tobacco use date assessed: 10/12/23 Fall risk assessment: No Falls in past year Last assessed Fall Risk: 10/12/23 Dental Screening Dental Screen Date: 10/12/23 Did you have a dental visit in the last 12 months?: No Did you have a dental problem in the last 6 months where you did not have access to dental care?: No HPI 3 MONTH F/U HPI Details 68-year-old male with hypertension hypercholesterolemia elevated PSA with an enlarged prostate coming in for follow-up last seen in June 2023. Patient follows up with urology prostate biopsy done July 2023 prostate volume is 77.1 benign biopsy. Patient also saw the Orthopedics for the trigger finger injection done December 2022 and wishes to proceed with surgery. problem about children and granchildren decline any referral for counseling or therapy for now. Otherwise no nausea no vomiting no chest pains no shortness a breath. Patient continues to complain of some rectal discomfort and was asking for some help. [facility] Medical History Trigger finger, right middle finger Wheezing Viral upper respiratory illness Urinary urgency Depression Neck pain with history of cervical spinal surgery Surgical History Hx of tonsillectomy S/P right knee arthroscopy History of cholecystectomy Family History Mother Breast cancer, Onset Age: 45 Asthma Father Type 1 diabetes Kidney transplanted HTN (hypertension) Sister Depression Maternal Grandmother Pancreatic cancer Maternal Aunt Pancreatic cancer Paternal Grandfather Type 2 diabetes Paternal Uncle Type 2 diabetes Social History Household Members: Spouse Housing: House Are you a primary family day carer to a significant other at home: No Do you presently have visiting nurse or other home services: No 75 years or older and lives alone: No Alcohol intake: current Alcohol intake frequency: other Patient Tobacco Use Status: Never used Tobacco service: No Current occupational status: retired Current occupation: rt hand Cognitive needs: No Hearing needs: No Vision needs: Yes (glasses ) Questionnaire Thrive Questionnaire Date Thrive assessed: 10/12/23 AUDIT C Alcohol Use Questionnaire (AUDIT-C) 1. How often do you have a drink containing alcohol?: Never 3. How often do you have six or more drinks on one occasion?: Never Total Score: 0 JUAN J-7 AMB Questionnaire JUAN J-7 Date JUAN J - 7 assessed: 10/12/23 Source: Developed by Drs. Jimy Head, Elizabeth Lay, Christopher Donahue and colleagues, with an educational niko from [employer]. Physical exam (Primary Care) Vital Signs: Last Vital Signs Pulse 72 10/12/23 08:43 BP 152/86 H 10/12/23 08:43 Pulse Ox 97 10/12/23 08:43 Oxygen Delivery Method Room Air 10/12/23 08:43 BMI result Body Mass Index 24.7 Tobacco/Smoking Status: Tobacco use Status Tobacco use date assessed 10/12/23 10/12/23 08:49 Patient Tobacco Use Status Never used Tobacco 10/12/23 08:43 Thrive Assessment: Date of Thrive Assessment Date Thrive assessed 10/12/23 10/12/23 08:49 Const General: alert; No acute distress Eyes Conjunctivae: conjunctivae normal Resp Auscultation: clear to auscultation bilaterally Cardio Rate: regular rate Rhythm: regular rhythm GI Inspection: Yes normal to inspection Extrem General: Yes normal to inspection and No edema Assessment and Plan Assessment & Plan (1) BPH (benign prostatic hyperplasia): Comment: Prostate Biopsy Dr. Liriano Benign 07/2023 Code(s): N40.0 - Benign prostatic hyperplasia without lower urinary tract symptoms Plan: Patient follows up with urology continue to monitor. Biopsy-proven benign (2) Retinacular ganglion, volar (VRG): Code(s): M67.40 - Ganglion, unspecified site Plan: Patient has a planned surgery under Orthopedics (3) Hypercholesteremia: Code(s): E78.00 - Pure hypercholesterolemia, unspecified Plan: Avoid fried foods, chicken skin, eggs, butter margarine, pastries and meat. Be it pork or beef they have a lot of cholesterol LDL goal of less than 130 and triglyceride of less than 150 blood work recommended (4) Hypertension: Code(s): I10 - Essential (primary) hypertension Plan: Continue with blood pressure medication. Decrease salt intake and exercise on lisinopril hydrochlorothiazide (5) Trigger finger, right middle finger: Code(s): M65.331 - Trigger finger, right middle finger Plan: Planned surgery with orthopedics (6) Irritation of rectum: Code(s): K62.89 - Other specified diseases of anus and rectum Plan: Proctosol sent in to help with the rectal discomfort. Orders: Orders Complete Blood Count Auto Diff Today I10 - Essential (primary) hypertension Comprehensive Met. Panel Today I10 - Essential (primary) hypertension Free T4 (Free Thyroxine) Today I10 - Essential (primary) hypertension Thyroid Stimulating Hormone Today I10 - Essential (primary) hypertension Lipid Panel Today E78.00 - Pure hypercholesterolemia, unspecified, I10 - Essential (primary) hypertension Vitamin B12 and Folate Today I10 - Essential (primary) hypertension Medications: New hydrocortisone 2.5% (Proctosol HC) 1 appl [place] BID-QID PRN 30 grams 2RF itching K62.89 - Other specified diseases of anus and rectum Coding Level of Care Code Est Pt Level 4 (18094) Diagnoses BPH (benign prostatic hyperplasia) N40.0 Retinacular ganglion, volar (VRG) M67.40 Hypercholesteremia E78.00 Hypertension I10 Trigger finger, right middle finger M65.331 Irritation of rectum K62.89
== END 2023-10-12 09:25 | disposition home or self-care (01) ==
PROVIDERS: PCP Internal Medicine; Visit Provider Internal Medicine
DX: N40.0 Benign prostatic hyperplasia without lower urinary tract symptoms (principal); M67.40 Ganglion, unspecified site; E78.00 Pure hypercholesterolemia, unspecified; I10 Essential (primary) hypertension; M65.331 Trigger finger, right middle finger; K62.89 Other specified diseases of anus and rectum
CPT/HCPCS: 99214

== ENCOUNTER 2024-01-15 07:04 | Outpatient (REF) | payer MEDICARE, SELFPAY ==
[2024-01-15 07:30] LABS: MANUAL DIFF FLAG NO
[2024-01-15 07:56] LABS: Basophils Absolute Auto 0.1 X10*3/uL (0.0-0.2); Basophils Percent Auto 0.9 % (0-2); Eosinophils Absolute Auto 0.4 X10*3/uL (0.0-0.4); Eosinophils Percent Auto 5.5 % (0-4); Hematocrit 44.1 % (42.0-52.0); Hemoglobin 14.5 g/dl (14.0-18.0); Imm Gran Abs Auto 0.02 X10*3/uL (0.00-0.03); Imm Gran Pct Auto 0.3 % (0.0-0.4); Lymphocytes Absolute Auto 1.3 X10*3/uL (1.2-4.9); Lymphocytes Percent Auto 16.4 % (20-40); Mean Corpuscular HGB Conc 32.9 g/dl (31.0-36.0); Mean Corpuscular Hemoglobin 28.6 pg (27.0-33.0); Mean Platelet Volume 9.5 fL (9.4-12.4); Monocytes Absolute Auto 0.8 X10*3/uL (0.1-1.2); Monocytes Percent Auto 10.6 % (2-11); Neutrophils Percent Auto 66.3 % (45-73); Platelet Count 311 X10*3/uL (160-400); Red Blood Count 5.07 X10*6/uL (4.60-5.80); Red Cell Distribution Width 13.4 % (11.0-16.0); White Blood Count 7.6 X10*3/uL (4.8-10.8)
[2024-01-15 08:34] LABS: Alanine Aminotransferase 18 U/L (0-40); Albumin Level 4.3 g/dL (3.5-5.0); Alkaline Phosphatase 73 U/L (39-117); Anion Gap 12 (12-20); Aspartate Amino Transferase 19 U/L (5-37); Bilirubin Total 0.8 mg/dL (0.0-1.0); Blood Urea Nitrogen 23 mg/dL (9-16); Calcium 9.4 mg/dL (8.4-10.2); Carbon Dioxide 25 mmol/L (22-29); Chloride 106 mmol/L (96-108); Cholesterol 200 mg/dL (<200); Estimated Glomerular Filt Rate > 60; Glucose Random 92 mg/dL (60-115); HDL Cholesterol 59 mg/dL (>40); LDL Cholesterol Calculated 125 mg/dL (<100); Potassium 4.4 mmol/L (3.3-5.1); Sodium 139 mmol/L (135-145); Total Protein 7.4 g/dL (6.5-8.0); Triglycerides 84 mg/dL (<150)
[2024-01-15 08:53] LABS: PSA,Total (Free>4and<10) 15.03 ng/mL (0.00-4.00)
[2024-01-15 08:55] LABS: Free T4 (Free Thyroxine) 0.83 ng/dL (0.71-1.85); Thyroid Stimulating Hormone 1.43 uIU/mL (0.32-4.0)
[2024-01-15 09:02] LABS: Folate 10.4 ng/mL (> or = 4.0); Vitamin B12 291 pg/mL (200-900)
[2024-01-15 09:21] LABS: Appearance Urine Clear; Color Urine Yellow; Glucose Urine UA Negative (Negative); Leukocyte Esterase Urine Negative (Negative); Nitrite Urine Negative (Negative); PH 6.5 (5.0-9.0); UMIC TRIGGER UA YES; Urine Blood Trace (Negative); Urine Ketones Negative (Negative); Urine Protein Negative (Neg-Trace)
[2024-01-15 09:27] LABS: Bacteria Urine None Seen (None Seen); Hyaline Casts Urine 0-2 /LPF (0-2); Squamous Epithelial Cell Urine 0-2 /HPF (0-2); WBC Urine 0-5 /HPF (0-5)
== END 2024-01-15 07:05 | disposition home or self-care (01) ==
LOC: HO.LAB 07:04
PROVIDERS: PCP Internal Medicine; Visit Provider Urology
DX: Z12.5 Encounter for screening for malignant neoplasm of prostate (principal); N40.0 Benign prostatic hyperplasia without lower urinary tract symptoms; R97.20 Elevated prostate specific antigen [PSA]; I10 Essential (primary) hypertension; E78.00 Pure hypercholesterolemia, unspecified
CPT/HCPCS: 36415; 80053; 80061; 81001; 81003; 82607; 82746; 84153; 84439; 84443; 85025

== ENCOUNTER 2024-01-18 09:39 | Outpatient (AMB) | payer MEDICARE, SELFPAY ==
--- NOTE | 2024-01-18 09:49 | A.OFFVIS_ITS ---
Intake Visit Reasons: 6m/PSA Intake Note: Patient is present for for follow up Elevated PSA ( Urology Medications: none Blood Thinner: none Patient Resource Specialist Required: No Accompanied by: Self / Same As Patient Allergies No Known Allergies Allergy (Verified 01/18/24 10:21) Medication List - Last Reconciled 01/18/24 by CARLOZ Nichols atorvastatin 20 mg PO DAILY finasteride 5 mg PO DAILY 90 days hydrocortisone 2.5% (Proctosol HC) 1 appl TN BID-QID PRN lisinopril-hydrochlorothiazide 20-25 mg 1 tab PO DAILY HPI Comments Details: Jim is a pleasant 68-year-old male patient of Dr. Maddox. He has a past medical history of depression, neck pain with a history of cervical spinal surgery, and elevated PSA. He presents to the office today for follow-up of his elevated PSA. Of note, patient underwent prostate biopsy 07/[address] Ellis at which time 12 core biopsy noted benign with scattered foci of acute and chronic inflammation throughout. He discusses after prostate biopsy he had a flare-up of his hemorrhoids. He otherwise reports to be doing and feeling well. In office urinalysis results reviewed with the patient today. PSAs are as follows: 11/26 14.5, 05/29 6.8 % free PSA 27%, 03/28 10.3, 01/27 15.0 Discussed increase in PSA in variability over the last year in PSA. Discussed obtaining MRI of the prostate for further assessment evaluation. On transrectal ultrasound estimated volume of prostate was approximately 77 mL. He does report noting urinary urgency he otherwise denies urinary frequency, incontinence, nocturia, hematuria, dysuria, foul smelling urine, changes to urinary stream, f lank pain, fever, and or chills. He is happy with his current voiding parameters. Discussed at length potential causes of elevated PSA. He otherwise offers no other issues or concerns at this time. [facility] Medical History Trigger finger, right middle finger Wheezing Viral upper respiratory illness Urinary urgency Depression Neck pain with history of cervical spinal surgery Surgical History Hx of tonsillectomy S/P right knee arthroscopy History of cholecystectomy Family History Mother Breast cancer, Onset Age: 45 Asthma Father Type 1 diabetes Kidney transplanted HTN (hypertension) Sister Depression Maternal Grandmother Pancreatic cancer Maternal Aunt Pancreatic cancer Paternal Grandfather Type 2 diabetes Paternal Uncle Type 2 diabetes Social History Household Members: Spouse Housing: House Are you a primary senior resident care director to a significant other at home: No Do you presently have visiting nurse or other home services: No 75 years or older and lives alone: No Alcohol intake: current Alcohol intake frequency: other Patient Tobacco Use Status: Never used Tobacco service: No Current occupational status: retired Current occupation: rt hand Cognitive needs: No Hearing needs: No Vision needs: Yes (glasses ) Review of Systems Const All systems reviewed & are unremarkable except as noted in HPI and below Physical Exam Const General: cooperative, healthy appearing, comfortable, no acute distress, well developed, alert and awake Nutritional Appearance: average body habitus Orientation/consciousness: patient oriented x3 Limitations: no limitations HEENT Head: Yes normal to inspection, Yes normocephalic and Yes atraumatic Ears: hearing grossly normal bilaterally Eyes General: appearance normal, both eyes and all related structures Neck Neck: Yes normal visual inspection and Yes trachea midline Chest Chest palpation & inspection: normal inspection of the chest Resp Effort & Inspection: normal respiratory effort and able to speak in complete sentences Cardio Rate: regular rate GI Inspection: Yes normal to inspection General: Yes no CVA tenderness Back/Spine/Pelvis Back: no CVA tenderness Skin General skin exam: no rashes or lesions noted Neuro General: patient oriented x3 Extrem General: Yes normal to inspection Psych Appearance: grossly normal Mental Status: mental status grossly normal Speech and movement: Normal speech and movement present and Clear speech present Affect: normal affect Attitude: cooperative Thought process: Normal thought process present Thought content: Normal thought content present Insight: Fair insight present (Psych) Judgement: Fair judgement present (Psych) Results AMB Urinalysis, Automated UA Leukoctes 0 Kendall/uL Last Edit by Francheska Mike on 01/18/24 09:58 UA Nitrite Negative Last Edit by Francheska Mike on 01/18/24 09:58 UA Urobilinogen 0.2 mg/dL Last Edit by Francheska Mike on 01/18/24 09:58 UA Protein 0 mg/dL Last Edit by Francheska Mike on 01/18/24 09:58 UA pH 5.0 Last Edit by Francheska Mike on 01/18/24 09:58 UA Blood 25 Jigar/uL Last Edit by Francheska Mike on 01/18/24 09:58 UA Specific [place] 1.025 Last Edit by Francheska Mike on 01/18/24 09:58 UA Ketone Negative Last Edit by Francheska Mike on 01/18/24 09:58 UA Bilirubin 0 mg/dL Last Edit by Francheska Mike on 01/18/24 09:58 UA Glucose 0 mg/dL Last Edit by Francheska Mike on 01/18/24 09:58 Results Reviewed Results Reviewed: Laboratory Last Values Urine pH (Auto) 5.0 01/18/24 09:57 Specific [place] (Auto) 1.025 01/18/24 09:57 Urine Protein (Auto) 0 mg/dL 01/18/24 09:57 Glucose (UA)(Auto) 0 mg/dL 01/18/24 09:57 Urine Ketones (Auto) Negative 01/18/24 09:57 Urine Blood (Auto) 25 Jigar/uL 01/18/24 09:57 Urine Nitrite (Auto) Negative 01/18/24 09:57 Urine Bilirubin (Auto) 0 mg/dL 01/18/24 09:57 Urine Urobilinogen (Auto) 0.2 mg/dL 01/18/24 09:57 Leukocyte Esterase (Auto) 0 Kendall/uL 01/18/24 09:57 Assessment & Plan Assessment & Plan (1) Elevated PSA: Code(s): R97.20 - Elevated prostate specific antigen [PSA] Category: Medical (2) Chronic prostatitis: Code(s): N41.1 - Chronic prostatitis Category: Medical (3) BPH (benign prostatic hyperplasia): Comment: Prostate Biopsy Dr. Heri Ronquillo 07/2023 Code(s): N40.0 - Benign prostatic hyperplasia without lower urinary tract symptoms Category: Medical Plan In office urinalysis results reviewed with the patient today; as noted above. Recent PSA results reviewed with the patient today; as noted above. Discussed at length potential causes of elevated PSA; discussed further treatment options with obtaining MRI of the prostate. Start finasteride 5 mg daily as discussed and prescribed. Patient reports be happy with current voiding parameters. Will obtain PSA in 3 months. Follow-up in 3 months with imaging and labs to be completed prior; or sooner with any issues, concerns, and or questions. Orders: Orders AMB Urinalysis Automated Today Z13.9 - Encounter for screening, unspecified MR pelvis wo/w con Today C61 - Malignant neoplasm of prostate PSA,Total (Free>4and<10) 3 Months R97.20 - Elevated prostate specific antigen [PSA] Medications: New finasteride 5 mg PO DAILY 90 tabs 1RF 90 days N13.8 - Other obstructive and reflux uropathy, N40.1 - Benign prostatic hyperplasia with lower urinary tract symptoms, R33.9 - Retention of urine, unspecified Patient Instructions: The patient had an opportunity to ask questions regarding the treatment plan. All questions were answered. Physical exam, labs, and imaging were discussed and reviewed in detail. As well as risks, benefits, and discussion of treatment choices. No major barriers to understanding were identified. The patient expressed understanding and agreement with the above treatment plan. The patient was made aware they should contact our office by phone for worsening of their current condition, the appearance of new symptoms, or with any questions or concerns. Compliance is encouraged with any medications and follow up testing that is ordered. It is a privilege to be allowed the opportunity to participate in? your urological care.? Again, if you have any questions or concerns If you have any questions or concerns please do not hesitate to contact me. The office is [phone]. This note is constructed using voice recognition software. While every effort has been made to ensure accuracy architectural design lecturer errors may have been included. Yours sincerely, CARLOZ Nichols Coding Level of Care Code Est Pt Level 4 (08061) Diagnoses Elevated PSA R97.20 Chronic prostatitis N41.1 BPH (benign prostatic hyperplasia) N40.0
== END 2024-01-18 10:18 | disposition home or self-care (01) ==
PROVIDERS: PCP Internal Medicine; Visit Provider Nurse Practitioner Family
DX: R97.20 Elevated prostate specific antigen [PSA] (principal); N41.1 Chronic prostatitis; N40.0 Benign prostatic hyperplasia without lower urinary tract symptoms; Z13.9 Encounter for screening, unspecified
CPT/HCPCS: 99214

== ENCOUNTER → 2024-01-18 09:39 | Outpatient (BNVA) | payer MEDICARE, SELFPAY | PROVIDERS: PCP Internal Medicine; Visit Provider Nurse Practitioner Family | DX: R97.20 Elevated prostate specific antigen [PSA] (principal); N41.1 Chronic prostatitis; N40.0 Benign prostatic hyperplasia without lower urinary tract symptoms | CPT/HCPCS: 81003; 99212 ==

== ENCOUNTER 2024-01-26 14:23 | Outpatient (AMB) | payer MEDICARE, SELFPAY ==
--- NOTE | 2024-01-26 15:29 | MHC.OFFVIS ---
Intake Visit Reasons: OV - left MF trigger finger, patient wants inj Intake Note: Jim is a 68 year old right hand dominant male who presents today for a follow up of his left MF trigger finger. He states that his last his last injection didn't give him much relief but he is willing to try it again. Allergies No Known Allergies Allergy (Verified 01/26/24 15:30) HPI HPI OV - left MF trigger finger, patient wants inj: Details: Jim is a 68 year old right hand dominant man whose chief complaint is his left middle trigger finger. He has a Hx of a right middle finger steroid injection on 12/16/22. He says this was not particularly helpful but he would like to have an injection for his left middle finger trigger finger today. He is not interested in surgery during Golf season. He notices that it locks and catches pretty much every day, especially in the morning. He says he was scheduled for a right middle finger trigger release surgery last winter, but he had to cancel as he received Guardianship of his young Grandchildren, ages 1 and 2 years. [facility] Medical History Trigger finger, right middle finger Wheezing Viral upper respiratory illness Urinary urgency Depression Neck pain with history of cervical spinal surgery Surgical History Hx of tonsillectomy S/P right knee arthroscopy History of cholecystectomy Family History Mother Breast cancer, Onset Age: 45 Asthma Father Type 1 diabetes Kidney transplanted HTN (hypertension) Sister Depression Maternal Grandmother Pancreatic cancer Maternal Aunt Pancreatic cancer Paternal Grandfather Type 2 diabetes Paternal Uncle Type 2 diabetes Social History Household Members: Spouse Housing: House Are you a primary summer child caregiver to a significant other at home: No Do you presently have visiting nurse or other home services: No 75 years or older and lives alone: No Alcohol intake: current Alcohol intake frequency: other Patient Tobacco Use Status: Never used Tobacco service: No Current occupational status: retired Current occupation: rt hand Cognitive needs: No Hearing needs: No Vision needs: Yes (glasses ) Review of Systems Const All systems reviewed & are unremarkable except as noted in HPI and below Physical Exam Const General: no acute distress and alert Orientation/consciousness: patient oriented x3 Neuro General: patient oriented x3 Extrem Other: Evaluation of Left Upper Extremity: The patient is alert, oriented, and in no acute distress Neuro: Median, Ulnar, Radial nerves motor and sensory intact and sensation is normal to the tips of all digits Vascular: Cap refill brisk ROM: He can make a fist and extend all his digits in his right hand. He has visible catching of his left middle finger. He is most tender to palpation over the left middle finger A1 macy Psych Appearance: grossly normal Affect: normal affect Attitude: cooperative Office Procedures Fracture Care Details: No fracture, injection Fracture Billing Code: Fracture Billing Code Assessment & Plan Assessment & Plan (1) Trigger finger, left middle finger: Code(s): M65.332 - Trigger finger, left middle finger Category: Medical (2) Trigger finger, right middle finger: Code(s): M65.331 - Trigger finger, right middle finger Category: Medical (3) Retinacular ganglion, volar (VRG): Code(s): M67.40 - Ganglion, unspecified site Category: Medical Plan Assessment & Plan: 1. Left middle finger trigger finger I educated him about this condition I discussed operative and non-operative treatment options The patient would like to proceed with an injection, as he is not interested in surgery during Golf season Injection #1: The risks and benefits of a steroid injection including but not limited to risk of damage to blood vessels, nerves, tendons, infection, skin bleaching, failure to improve symptoms, increased pain, and possible need for further injections or other intervention were discussed with the patient and the patient wishes to proceed with the steroid injection. Once consent was obtained, I sterilely prepped the area over the A1 macy of the flexor tendon sheath of the Left middle. I then injected the flexor tendon sheath with a combination of 1 mL of dexamethasone (4mg/ml), and 1% lidocaine. The patient tolerated the procedure well with no complications. If the patient continues to have locking and catching 4-6 weeks following this injection, they may call to schedule appointment to discuss alternative treatment options 2. Right middle trigger finger Date of Injection: 12/16/22 3. Right middle finger volar retinacular ganglion No complaints today He may follow up to discuss treatment options 4. Left thumb numbness Dense numbness to the pad of the thumb only, constant, and present since at least 2018 and did not change following his C-spine fusion. Normal sensation to all other digits No intervention necessary at this time. I educated him on the symptoms of carpal tunnel syndrome, if any other fingers begin to experience numbness, intermittent but daily, then he should contact the clinic to discuss a NCS Scribed for Rose Marie Diaz MD by Fransico Jaramillo, medical professionals, on 01/26/24 at 3:35 PM, EST. Coding Level of Care Code Est Pt Level 3 (46061) Diagnoses Trigger finger, left middle finger M65.332 Trigger finger, right middle finger M65.331 Retinacular ganglion, volar (VRG) M67.40 CPT Codes Fracture Care - Fracture Billing Code: Fracture Billing Code ([id number])
== END 2024-01-26 16:42 | disposition home or self-care (01) ==
LOC: HO.HOS 14:29
PROVIDERS: PCP Internal Medicine; Visit Provider Orthopaedic Surgery
DX: M65.332 Trigger finger, left middle finger (principal); M65.331 Trigger finger, right middle finger; M67.441 Ganglion, right hand
CPT/HCPCS: 20550; 99213

== ENCOUNTER → 2024-01-26 14:29 | Outpatient (BNVA) | payer MEDICARE, SELFPAY | PROVIDERS: PCP Internal Medicine; Visit Provider Orthopaedic Surgery | DX: M65.332 Trigger finger, left middle finger (principal); M65.331 Trigger finger, right middle finger; M67.40 Ganglion, unspecified site | CPT/HCPCS: 20550; 99212 ==

== ENCOUNTER 2024-02-17 08:33 | Outpatient (AMB) | payer MEDICARE, SELFPAY ==
--- NOTE | 2024-02-17 08:47 | MHC.PC.OV ---
Vital Signs 02/17/24 08:48 Height 5 ft 9 in Weight 166 lb BMI 24.5 BP 154/92 H Blood Pressure Location Lt brachial Position Sitting Pulse 78 Pulse Source Pulse Oximeter Pulse Oximetry (%) 98 Oxygen Delivery Method Room Air Intake Visit Reasons: 4 month f/u Allergies No Known Allergies Allergy (Verified 01/26/24 15:30) Tobacco use date assessed: 10/12/23 Fall risk assessment: No Falls in past year Last assessed Fall Risk: 02/17/24 Dental Screening Dental Screen Date: 10/12/23 HPI 4 month f/u HPI Details 68-year-old male with BPH hypertension hypercholesterolemia coming in for follow-up. Last seen in 10/26/2023. Review of the notes had MR of the pelvis 02/08/2024 due to the PSA evaluation for showing no suspicious prostate lesion. Patient also has seen Orthopedics for the left middle finger trigger finger. Having the injections done. [facility] Medical History Trigger finger, right middle finger Wheezing Viral upper respiratory illness Urinary urgency Depression Neck pain with history of cervical spinal surgery Surgical History Hx of tonsillectomy S/P right knee arthroscopy History of cholecystectomy Family History (Updated 02/17/24 @ 08:50 by Maria Isabel Marte [facility]) Mother Breast cancer, Onset Age: 45 Asthma Father Type 1 diabetes Kidney transplanted HTN (hypertension) Sister Depression Mental health disorder Maternal Grandmother Pancreatic cancer Maternal Aunt Pancreatic cancer Paternal Grandfather Type 2 diabetes Paternal Uncle Type 2 diabetes Social History Household Members: Spouse Housing: House Are you a primary health care attorney to a significant other at home: No Do you presently have visiting nurse or other home services: No 75 years or older and lives alone: No Alcohol intake: current Alcohol intake frequency: other Patient Tobacco Use Status: Never used Tobacco e-Cigarette/Vaping Use: Never Used Second Hand Smoke Exposure: No service: No Current occupational status: retired Current occupation: rt hand Cognitive needs: No Hearing needs: No Vision needs: Yes (glasses ) Questionnaire PHQ-9 Over the last 2 weeks, how often have you been bothered by any of the following problems? 1. Little interest or pleasure in doing things: not at all 2. Feeling down, depressed, or hopeless: not at all 3. Trouble falling or staying asleep, or sleeping too much: not at all 4. Feeling tired or having little energy: not at all 5. Poor appetite or overeating: not at all 6. Feeling bad about yourself - or that you are a failure or have let yourself or your family down: not at all 7. Trouble concentrating on things, such as reading the newspaper or watching television: not at all 8. Moving or speaking so slowly that other people could have noticed. Or the opposite - being so fidgety or restless that you have been moving around a lot more than usual: not at all 9. Thoughts that you would be better off or of hurting yourself in some way: not at all Total score: 0 Depression Screening Interpretation: Positive Depression Screening Done: Yes Source: Developed by Drs. Jimy Head, Elizabeth Lay, Christopher Donahue and colleagues, with an educational niko from [employer]. Thrive Questionnaire Date Thrive assessed: 10/12/23 AUDIT C Alcohol Use Questionnaire (AUDIT-C) 1. How often do you have a drink containing alcohol?: Never 3. How often do you have six or more drinks on one occasion?: Never Total Score: 0 JUAN J-7 AMB Questionnaire JUAN J-7 Date JUAN J - 7 assessed: 10/12/23 Source: Developed by Drs. Jimy Head, Elizabeth Lay, Christopher Donahue and colleagues, with an educational niko from [employer]. Physical exam (Primary Care) Vital Signs: Last Vital Signs Pulse 78 02/17/24 08:48 BP 154/92 H 02/17/24 08:48 Pulse Ox 98 02/17/24 08:48 Oxygen Delivery Method Room Air 02/17/24 08:48 BMI result Body Mass Index 24.5 Tobacco/Smoking Status: Tobacco use Status Tobacco use date assessed 10/12/23 02/17/24 08:50 Patient Tobacco Use Status Never used Tobacco 02/17/24 08:50 e-Cigarette/Vaping Use Never Used 02/17/24 08:50 PHQ-9: PHQ-9 Score PHQ-9: Total score 0 02/17/24 08:54 Depression Screening Interpretation: Positive Thrive Assessment: Date of Thrive Assessment Date Thrive assessed 10/12/23 02/17/24 08:50 Const General: alert; No acute distress Eyes Conjunctivae: conjunctivae normal Resp Auscultation: clear to auscultation bilaterally Cardio Rate: regular rate Rhythm: regular rhythm GI Inspection: Yes normal to inspection Extrem General: Yes normal to inspection and No edema Assessment and Plan Assessment & Plan (1) Trigger finger, left middle finger: Code(s): M65.332 - Trigger finger, left middle finger Plan: Patient follows up with orthopedics has had injections done. (2) Hypertension: Code(s): I10 - Essential (primary) hypertension Plan: Continue with blood pressure medication. Decrease salt intake and exercise on lisinopril hydrochlorothiazide 20/25 mg once a day (3) Hypercholesteremia: Code(s): E78.00 - Pure hypercholesterolemia, unspecified Plan: Avoid fried foods, chicken skin, eggs, butter margarine, pastries and meat. Be it pork or beef they have a lot of cholesterol on atorvastatin 20 mg once a day (4) BPH (benign prostatic hyperplasia): Comment: Prostate Biopsy Dr. Liriano Benign 07/2023 Code(s): N40.0 - Benign prostatic hyperplasia without lower urinary tract symptoms Plan: Received MR results of no suspicious lesion Coding Level of Care Code Est Pt Level 4 (24409) Diagnoses Trigger finger, left middle finger M65.332 Hypertension I10 Hypercholesteremia E78.00 BPH (benign prostatic hyperplasia) N40.0
[2024-02-17 08:48] VITALS: BP 154/92; PULSE 78; O2SAT 98; BMI 24.5
== END 2024-02-17 10:15 | disposition home or self-care (01) ==
PROVIDERS: PCP Internal Medicine; Visit Provider Internal Medicine
DX: M65.332 Trigger finger, left middle finger (principal); I10 Essential (primary) hypertension; E78.00 Pure hypercholesterolemia, unspecified; N40.0 Benign prostatic hyperplasia without lower urinary tract symptoms
CPT/HCPCS: 99214

== ENCOUNTER 2024-04-14 09:30 | Outpatient (REF) | payer MEDICARE, SELFPAY ==
[2024-04-14 11:34] LABS: PSA,Total (Free>4and<10) 11.94 ng/mL (0.00-4.00)
== END 2024-04-14 09:31 | disposition home or self-care (01) ==
LOC: HO.LAB 09:30
PROVIDERS: PCP Internal Medicine; Visit Provider Nurse Practitioner Family
DX: R97.20 Elevated prostate specific antigen [PSA] (principal); Z12.5 Encounter for screening for malignant neoplasm of prostate
CPT/HCPCS: 36415; 84153

== ENCOUNTER 2024-04-18 08:42 | Outpatient (AMB) | payer MEDICARE, SELFPAY ==
--- NOTE | 2024-04-18 08:42 | MHC.OFFVIS ---
Intake Visit Reasons: 3m/MRI/PSA Intake Note: Patient presents today for tele-visit follow up on: Elevated PSA, MRI and lab results PSA: 11.94 Imaging Completed: 02/08/24 Urology Medications: Finasteride Blood Thinner: none Launch Operator Required: No Accompanied by: Self / Same As Patient Allergies No Known Allergies Allergy (Verified 04/18/24 08:58) Medication List - Last Reconciled 04/18/24 by Lotus Fraser, EQUIPMENT SERVICE ENGINEER-BC atorvastatin 20 mg PO DAILY finasteride 5 mg PO DAILY 90 days hydrocortisone 2.5% (Proctosol HC) 1 appl ME BID-QID PRN lisinopril-hydrochlorothiazide 20-25 mg 1 tab PO DAILY HPI Comments Details: Jim is a pleasant 68-year-old male patient of Dr. Maddox. He has a past medical history of depression, neck pain with a history of cervical spinal surgery, and elevated PSA. He is being followed up on today via video telehealth for his elevated PSA. Of note, patient was seen approximately 3 months ago at which time an MRI of the prostate was ordered for further assessment evaluation and redraw of PSA. These results were reviewed with the patient today. The bladder and urethral are unremarkable. No inguinal adenopathy. No suspicious prostate lesion identified. PSA results reviewed with the patient today as trended and noted below. Discussed slight decrease in PSA in the last 3 months. When asked he does report compliance with finasteride as prescribed. Patient with a history of negative prostate biopsy 07/[address] Ellis noted benign with scattered foci of acute and chronic inflammation throughout. He otherwise reports to be doing and feeling well. He denies any bothersome urinary issues or concerns. PSAs are as follows: 11/26 14.5, 05/29 6.8 % free PSA 27%, 03/28 10.3, 01/27 15.0, 04/29 12 Discussed variability in PSA. On transrectal ultrasound estimated volume of prostate was approximately 77 mL. He does report noting urinary urgency he otherwise denies urinary frequency, incontinence, nocturia, hematuria, dysuria, foul smelling urine, changes to urinary stream, flank pain, fever, and or chills. He is happy with his current voiding parameters. He otherwise offers no other issues or concerns at this time. COUNTS INCLUDE 234 BEDS AT THE [facility] Medical History Trigger finger, right middle finger Wheezing Viral upper respiratory illness Urinary urgency Depression Neck pain with history of cervical spinal surgery Surgical History Hx of tonsillectomy S/P right knee arthroscopy History of cholecystectomy Family History Mother Breast cancer, Onset Age: 45 Asthma Father Type 1 diabetes Kidney transplanted HTN (hypertension) Sister Depression Mental health disorder Maternal Grandmother Pancreatic cancer Maternal Aunt Pancreatic cancer Paternal Grandfather Type 2 diabetes Paternal Uncle Type 2 diabetes Social History Household Members: Spouse Housing: House Are you a primary youth career specialist to a significant other at home: No Do you presently have visiting nurse or other home services: No 75 years or older and lives alone: No Alcohol intake: current Alcohol intake frequency: other Patient Tobacco Use Status: Never used Tobacco e-Cigarette/Vaping Use: Never Used Second Hand Smoke Exposure: No service: No Current occupational status: retired Current occupation: rt hand Cognitive needs: No Hearing needs: No Vision needs: Yes (glasses ) Review of Systems Const All systems reviewed & are unremarkable except as noted in HPI and below Physical Exam Const General: cooperative, healthy appearing, comfortable, no acute distress, well developed and alert Orientation/consciousness: patient oriented x3 Resp Effort & Inspection: normal respiratory effort and able to speak in complete sentences Neuro General: patient oriented x3 Psych Appearance: grossly normal and well kempt Speech and movement: Clear speech present Attitude: cooperative Thought process: Normal thought process present Thought content: Normal thought content present Insight: Fair insight present (Psych) Judgement: Fair judgement present (Psych) Telehealth Telehealth Telehealth Platform: [facility] Location of provider rendering services: practice address Location of patient: address on file Patient Identification confirmed using: Name, : Yes Telehealth method: video Patient verbally consented to treatment: Yes Patient verbally consented to billing insurance company: Yes Patient informed of any privacy concerns related to visit: Yes Minutes spent on Phone/Video with Pt.: 15 Assessment & Plan Assessment & Plan (1) Elevated PSA: Code(s): R97.20 - Elevated prostate specific antigen [PSA] Category: Medical (2) Prostate enlargement: Comment: transrectal biopsy Dr. oGld scruggs 07/2023 Code(s): N40.0 - Benign prostatic hyperplasia without lower urinary tract symptoms Category: Medical (3) Chronic prostatitis: Code(s): N41.1 - Chronic prostatitis Category: Medical (4) BPH (benign prostatic hyperplasia): Comment: Prostate Biopsy Dr. Heri Ronquillo 07/2023 Code(s): N40.0 - Benign prostatic hyperplasia without lower urinary tract symptoms Category: Medical Plan Recent MRI results reviewed with the patient today; as noted above. Recent PSA results reviewed with the patient today; as noted above. Patient currently denies any bothersome urinary issues or concerns. Reports be happy with current voiding parameters. Continue finasteride as discussed and prescribed. Discussed at length potential causes of variability in PSA. Will obtain PSA in 4 months. Follow-up in 4 months with PSA to be completed prior; or sooner with any issues, concerns, and or questions. Orders: Orders PSA,Total (Free>4and<10) 4 Months N40.0 - Benign prostatic hyperplasia without lower urinary tract symptoms, R97.20 - Elevated prostate specific antigen [PSA] Patient Instructions: The patient had an opportunity to ask questions regarding the treatment plan. All questions were answered. Physical exam, labs, and imaging were discussed and reviewed in detail. As well as risks, benefits, and discussion of treatment choices. No major barriers to understanding were identified. The patient expressed understanding and agreement with the above treatment plan. The patient was made aware they should contact our office by phone for worsening of their current condition, the appearance of new symptoms, or with any questions or concerns. Compliance is encouraged with any medications and follow up testing that is ordered. It is a privilege to be allowed the opportunity to participate in? your urological care.? Again, if you have any questions or concerns If you have any questions or concerns please do not hesitate to contact me. The office is [phone]. This note is constructed using voice recognition software. While every effort has been made to ensure accuracy records management associate errors may have been included. Yours sincerely, CARLOZ Nichols Coding Level of Care Code Tele Est Pt Level 3 (51061) Complex EM visit Add On G2211 Diagnoses Elevated PSA R97.20 Prostate enlargement N40.0 Chronic prostatitis N41.1 BPH (benign prostatic hyperplasia) N40.0
== END 2024-04-18 10:54 | disposition home or self-care (01) ==
LOC: HO.HUSH 08:42
PROVIDERS: PCP Internal Medicine; Visit Provider Nurse Practitioner Family
DX: R97.20 Elevated prostate specific antigen [PSA] (principal); N40.0 Benign prostatic hyperplasia without lower urinary tract symptoms; N41.1 Chronic prostatitis
CPT/HCPCS: 99213; G2211

== ENCOUNTER → 2024-04-18 08:42 | Outpatient (BNVA) | payer MEDICARE, SELFPAY | PROVIDERS: PCP Internal Medicine; Visit Provider Nurse Practitioner Family ==

== ENCOUNTER 2024-07-18 16:03 | Outpatient (AMB) | payer MEDICARE, SELFPAY ==
[2024-07-18 16:04] VITALS: BP 138/86; PULSE 77; O2SAT 96; BMI 25.1
--- NOTE | 2024-07-18 16:04 | A.OFFPC_ITS ---
Vital Signs 07/18/24 16:04 Height 5 ft 9 in Weight 170 lb BMI 25.1 BP 138/86 Blood Pressure Location Lt brachial Position Sitting Pulse 77 Pulse Source Pulse Oximeter Pulse Oximetry (%) 96 Oxygen Delivery Method Room Air Intake Visit Reasons: Wheezing Electrical Contacts Adjuster Required: No Allergies No Known Allergies Allergy (Verified 07/18/24 16:07) Medication List - Last Reconciled 07/18/24 by Kelsi Hdez PA-C atorvastatin 20 mg PO DAILY finasteride 5 mg PO DAILY 90 days hydrocortisone 2.5% (Proctosol HC) 1 appl MS BID-QID PRN lisinopril-hydrochlorothiazide 20-25 mg 1 tab PO DAILY Tobacco use date assessed: 10/12/23 Fall risk assessment: No Falls in past year Last assessed Fall Risk: 07/18/24 Dental Screening Dental Screen Date: 10/12/23 HPI Wheezing HPI Details 69-year-old male with past medical histo ry of BPH, hypertension, hypercholesterolemia last seen by Dr. Maddox February 2024 coming in for acute problem. Patient states he has been having wheezing primarily at night with intermittent cough. Does not have a cough throughout the day and denies any fevers, congestion or upper respiratory symptoms. The wheezing began about 9 days ago. He has a history of an episode similar last year that resolved with albuterol inhaler as needed. He had pulmonary function testing completed at that time which showed no evidence of asthma or COPD. [facility] Medical History (Updated 07/18/24 @ 16:33 by Kelsi Hdez PA-C) Wheezing Trigger finger, right middle finger Viral upper respiratory illness Urinary urgency Depression Neck pain with history of cervical spinal surgery Surgical History Hx of tonsillectomy S/P right knee arthroscopy History of cholecystectomy Family History Mother Breast cancer, Onset Age: 45 Asthma Father Type 1 diabetes Kidney transplanted HTN (hypertension) Sister Depression Mental health disorder Maternal Grandmother Pancreatic cancer Maternal Aunt Pancreatic cancer Paternal Grandfather Type 2 diabetes Paternal Uncle Type 2 diabetes Social History Household Members: Spouse Housing: House Are you a primary respiratory care technician to a significant other at home: No Do you presently have visiting nurse or other home services: No 75 years or older and lives alone: No Alcohol intake: current Alcohol intake frequency: other Patient Tobacco Use Status: Never used Tobacco e-Cigarette/Vaping Use: Never Used Second Hand Smoke Exposure: No service: No Current occupational status: retired Current occupation: rt hand Cognitive needs: No Hearing needs: No Vision needs: Yes (glasses ) Questionnaire Thrive Questionnaire Date Thrive assessed: 10/12/23 AUDIT C Alcohol Use Questionnaire (AUDIT-C) 1. How often do you have a drink containing alcohol?: Never 3. How often do you have six or more drinks on one occasion?: Never Total Score: 0 JUAN J-7 AMB Questionnaire JUAN J-7 Date JUAN J - 7 assessed: 10/12/23 Source: Developed by Drs. Jimy Head, Elizabeth Lay, Christopher Donahue and colleagues, with an educational niko from [employer]. Review of Systems Const Denies body aches, Denies chills, Denies fatigue and Denies fever(s) Eyes Reports no additional complaints ENT Denies otalgia, Denies nasal congestion, Denies nasal discharge, Denies sinus pain, Denies sinus pressure and Denies sore throat Card Denies chest pain, Denies dyspnea and Denies dyspnea on exertion Resp Denies chest congestion, Reports cough (Dry), Denies dyspnea, Denies dyspnea on exertion and Reports wheezing GI Reports no additional complaints Musc Reports no additional complaints Skin/Breast Reports system reviewed and no additional complaints, except as documented Endo Denies fatigue Aller/Immun Reports wheezing Physical exam (Primary Care) Vital Signs: Last Vital Signs Pulse 77 07/18/24 16:04 BP 138/86 07/18/24 16:04 Pulse Ox 96 07/18/24 16:04 Oxygen Delivery Method Room Air 07/18/24 16:04 BMI result Body Mass Index 25.1 Tobacco/Smoking Status: Tobacco use Status Tobacco use date assessed 10/12/23 07/18/24 16:10 Patient Tobacco Use Status Never used Tobacco 07/18/24 16:10 e-Cigarette/Vaping Use Never Used 07/18/24 16:10 Thrive Assessment: Date of Thrive Assessment Date Thrive assessed 10/12/23 07/18/24 16:10 Const General: cooperative, healthy appearing, comfortable and no acute distress Orientation/consciousness: patient oriented x3 HENMT Head: Yes normocephalic Ears: hearing grossly normal bilaterally General nose exam: Normal external nose present Eyes General: appearance normal, both eyes and all related structures Conjunctivae: conjunctivae normal Neck Neck: Yes full ROM and Yes no lymphadenopathy Resp Effort & Inspection: normal respiratory effort Auscultation: clear to auscultation bilaterally, no crackles, no rales, no rhonchi and wheezes left upper (Expiratory) Cardio Rate: regular rate Rhythm: regular rhythm Skin General skin exam: no rashes or lesions noted Neuro General: patient oriented x3 Gait exam (Neuro): Normal gait present Extrem General: Yes normal to inspection, Yes full ROM and No edema Psych Affect: normal affect Attitude: cooperative Insight: Good insight present (Psych) Judgement: Good judgement present (Psych) Coding Level of Care Code Est Pt Level 3 (11180) Diagnoses Wheezing R06.2 Assessment & Plan Assessment & Plan (1) Wheezing: Code(s): R06.2 - Wheezing Category: Medical Plan: Patient having wheezing at night and not throughout the day. May be allergy related advised patient to begin taking [id number] allergy medication daily and we will give albuterol inhaler for as needed. Reviewed red flag symptoms and when to present for re-evaluation. Low suspicion for pneumonia. At this time pulmonary function testing not indicated and if this persists can reconsider repeat testing. Plan This note was constructed using voice recognition software. While every effort has been made to ensure accuracy and solar design engineer, still areas may have been included sometimes these areas may affect the content or meeting of the given symptoms. Total time spent caring for the patient today was 20 minutes. This includes time spent before the visit reviewing the chart, time spent during the visit, and time spent after the visit and documentation. Medications: New albuterol sulfate 90 mcg/actuation 1 inh inhalation QID 6.7 grams 0RF
== END 2024-07-18 16:39 | disposition home or self-care (01) ==
PROVIDERS: PCP Internal Medicine
DX: R06.2 Wheezing (principal)

== ENCOUNTER → 2024-07-18 16:03 | Outpatient (BNVA) | payer MEDICARE, SELFPAY | PROVIDERS: PCP Internal Medicine | DX: R06.2 Wheezing (principal) | CPT/HCPCS: 99212 ==

== ENCOUNTER 2024-07-26 11:55 | Outpatient (AMB) | payer MEDICARE, SELFPAY ==
--- NOTE | 2024-07-26 12:01 | A.OFFVIS_ITS ---
Intake Vital Signs 07/26/24 12:02 Height 5 ft 9 in Weight 167 lb BMI 24.7 BP 124/78 Blood Pressure Location Lt brachial Position Sitting Pulse 84 Pulse Source Pulse Oximeter Pulse Oximetry (%) 98 Oxygen Delivery Method Room Air Intake Visit Reasons: AWV [id number] Allergies No Known Allergies Allergy (Verified 07/26/24 12:02) Medication List - Last Reconciled 07/26/24 by Refugio Maddox MD albuterol sulfate 90 mcg/actuation 1 inh inhalation QID atorvastatin 20 mg PO DAILY finasteride 5 mg PO DAILY 90 days hydrocortisone 2.5% (Proctosol HC) 1 appl NC BID-QID PRN lisinopril-hydrochlorothiazide 20-25 mg 1 tab PO DAILY HPI AWV G0438 HPI Details 69-year-old male with hypertension hyper cholesterolemia BPH history of depression and neck pain with cervical spinal surgery. coming in for annual well visit last seen having wheezing in 07/26/2024 patient was prescribed albuterol. Review of the notes Urology notes for the elevated PSA. MRI of the prostate no suspicious prostate lesion. On finasteride negative prostate biopsy in 07/26/2023 patient has a BPH at 77 cc continuing present medication. An PSA follow-up. Colonoscopy last done in 2014 will ask next year for colon cancer screening. As for the blood work done last January. Prostate number being monitored by Urology. [place] [facility] U[facility] dysphagia-. still wheezing, L hip pain, no dysuria PFSH Medical History (Updated 07/26/24 @ 12:51 by Refugio Maddox MD) Wheezing Trigger finger, right middle finger Viral upper respiratory illness Urinary urgency Depression Neck pain with history of cervical spinal surgery Surgical History Hx of tonsillectomy S/P right knee arthroscopy History of cholecystectomy Family History Mother Breast cancer, Onset Age: 45 Asthma Father Type 1 diabetes Kidney transplanted HTN (hypertension) Sister Depression Mental health disorder Maternal Grandmother Pancreatic cancer Maternal Aunt Pancreatic cancer Paternal Grandfather Type 2 diabetes Paternal Uncle Type 2 diabetes Social History (Updated 07/26/24 @ 12:34 by Refugio Maddox MD) Household Members: Spouse Housing: House Are you a primary urgent care physician assistant to a significant other at home: No Do you presently have visiting nurse or other home services: No 75 years or older and lives alone: No Alcohol intake: current Alcohol intake frequency: other Comment: 2 days a week 1-2 drinks Patient Tobacco Use Status: Never used Tobacco e-Cigarette/Vaping Use: Never Used Second Hand Smoke Exposure: No service: No Current occupational status: retired Current occupation: rt hand Cognitive needs: No Hearing needs: No Vision needs: Yes (glasses ) Questionnaire Medicare Wellness Checkup What [age] 65-70 What gender do you identify with?: male During the past 4 weeks, how much have you been bothered by emotional problems such as feeling anxious, depressed, irritable, sad or downhearted, and blue?: slightly During the past 4 weeks, has your physical & emotional health limited your social activities with family, friends, neighbors, or groups?: not at all During the past 4 weeks, how much bodily pain have you generally had?: very mild pain During the past 4 weeks, was someone available to help you if you needed & wanted help?: yes, as much as I wanted During the past 4 weeks, what was the hardest physical activity you could do for at least 2 minutes?: very heavy Can you get to places out of walking distance without help? (For eg., can you travel alone on buses, taxis or drive your car?): Yes Can you go shopping for groceries or clothes without someone's help?: Yes Can you prepare your own meals?: Yes Can you do your housework without help?: Yes Because of any health problems, do you need the help of another person with your personal care needs such as eating, bathing, dressing or getting around the house?: No Can you handle your own money without help?: Yes During the past 4 weeks, how would you rate your health in general?: good During the past 4 weeks how have things been going for you?: pretty well Are you having difficulties driving your car?: no Do you always fasten your seat belt when you are in a car?: yes, usually During past 4 weeks, have you been bothered by the following: never: Falling or dizzy when standing up, Sexual problems?, Trouble eating well?, Teeth or denture problems? and Problems using the telephone? and sometimes: Tiredness or fatigue? Have you fallen 2 or more times in the past year?: No Are you afraid of falling?: No Are you a smoker?: no During the past 4 weeks, how many drinks of wine, beer, or other alcoholic beverages did you have?: 2-5 drinks per week Do you exercise for about 20 minutes 3 or more times a week?: yes, most of the time Have you been given information to help with the following?: no: Hazards in your house that might hurt you? and no: Keeping track of your medications? How often do you have trouble taking medicines the way you have been told to take them?: sometimes I take medicine as prescribed How confident are you that you can control & manage most of your health problems?: somewhat confident What is your race?: White PHQ-9 Over the last 2 weeks, how often have you been bothered by any of the following problems? 1. Little interest or pleasure in doing things: not at all 2. Feeling down, depressed, or hopeless: several days 3. Trouble falling or staying asleep, or sleeping too much: not at all 4. Feeling tired or having little energy: several days 5. Poor appetite or overeating: not at all 6. Feeling bad about yourself - or that you are a failure or have let yourself or your family down: several days 7. Trouble concentrating on things, such as reading the newspaper or watching television: not at all 8. Moving or speaking so slowly that other people could have noticed. Or the opposite - being so fidgety or restless that you have been moving around a lot more than usual: not at all 9. Thoughts that you would be better off or of hurting yourself in some way: not at all Total score: 3 Depression Screening Interpretation: Positive Depression Screening Done: Yes 04423 - PHQ-9 Billing: Yes Source: Developed by Drs. Jimy Head, Christopher Laureano and colleagues, with an educational niko from [employer]. Thrive Questionnaire Date Thrive assessed: 10/12/23 JUAN J-7 AMB Questionnaire JUAN J-7 Date JUAN J - 7 assessed: 10/12/23 Source: Developed by Elizabeth Aguirre Kurt Kroenke and colleagues, with an educational niko from [employer]. Review of Systems Const Denies poor appetite and Denies weakness Eyes Denies no additional complaints ENT Reports Normal hearing present, Denies dizziness, Denies nasal congestion, Denies tinnitus and Denies sore throat Card Denies chest pain, Denies syncope, Denies rapid heart rate and Denies dyspnea Resp Denies cough and Denies dyspnea GI Denies change in stool character, Reports constipation, Denies diarrhea, Denies nausea and Denies vomiting Denies dysuria and Denies urinary frequency Neuro Reports Normal hearing present, Denies confusion, Denies dizziness, Denies syncope and Denies weakness Psych Denies confusion Physical Exam Vital Signs: Last Vital Signs Pulse 84 07/26/24 12:02 BP 124/78 07/26/24 12:02 Pulse Ox 98 07/26/24 12:02 Oxygen Delivery Method Room Air 07/26/24 12:02 BMI result Body Mass Index 24.7 Const General: No confusion Orientation/consciousness: No confusion HEENT Head: Yes normocephalic Ears: external ears normal and TM's normal bilaterally Face and sinus: Yes normal facial exam Mouth: moist mucous membranes Throat: Yes tonsils normal Eyes Conjunctivae: conjunctivae normal Pupils: Equal, round and reactive pupils present and Pupil accommodation reflex normal Direct Ophthalmoscopy: normal light reflex Neck Neck: No lymphadenopathy Thyroid: Thyroid normal Chest Chest palpation & inspection: normal inspection of the chest Resp Other: terminal wheezing Effort & Inspection: audible wheezes Auscultation: no crackles, wheezes and lung sounds not diminished Cardio Rate: regular rate Rhythm: regular rhythm Peripheral pulses: radial pulses present and dorsalis pedis present GI Other: guaiac neg prostate enlarged Palpation (GI): no masses Auscultation: normal bowel sounds and normoactive bowel sounds Male General Exam: Yes normal external exam Skin General skin exam: no rashes or lesions noted Rashes: no rashes Neuro General: No confusion Cranial nerves: Yes Equal, round and reactive pupils present and Yes Normal hearing present Cognition (Neuro): normal cognition Gait exam (Neuro): Normal gait present Motor exam (neuro): 5/5 motor strength present throughout Deep tendon reflexes (DTR's): Right brachioradialis reflex intensity grade: 2+, Left brachioradialis reflex intensity grade: 2+, Right patellar reflex intensity grade: 2+ and Left patellar reflex intensity grade: 2+ Extrem General: No edema Assessment & Plan Assessment & Plan (1) Medicare annual wellness visit, subsequent: Code(s): Z00.00 - Encounter for general adult medical examination without abnormal findings Plan: Patient is advised to eat healthy, keep well hydrated, keep active and have adequate sleep. (2) Hypertension: Code(s): I10 - Essential (primary) hypertension Qualifiers: Hypertension type: primary hypertension Qualified Code(s): I10 - Essential (primary) hypertension Plan: Continue with blood pressure medication. Decrease salt intake and exercise on lisinopril hydrochlorothiazide 20/25 mg once a day (3) Hypercholesteremia: Code(s): E78.00 - Pure hypercholesterolemia, unspecified Plan: Avoid fried foods, chicken skin, eggs, butter margarine, pastries and meat. Be it pork or beef they have a lot of cholesterol on atorvastatin 20 mg once a day LDL goal of less than 130 and triglyceride of less than 150. (4) BPH (benign prostatic hyperplasia): Comment: Prostate Biopsy Dr. Liriano Benign 07/2023 Code(s): N40.0 - Benign prostatic hyperplasia without lower urinary tract symptoms Qualifiers: Lower urinary tract symptom detail: urinary frequency Lower urinary tract symptom presence: symptoms present Qualified Code(s): N40.1 - Benign prostatic hyperplasia with lower urinary tract symptoms; R35.0 - Frequency of micturition Plan: Patient follows up with urology and on finasteride. (5) Wheezing: Code(s): R06.2 - Wheezing Plan: will try antibiotic to see if resolved . PFT done 2022 negative. if wheezing persist will need chest xray and workup (6) Dysphagia: Code(s): R13.10 - Dysphagia, unspecified Qualifiers: Dysphagia type: oropharyngeal phase Qualified Code(s): R13.12 - Dysphagia, oropharyngeal phase Plan: ba swallow requested Orders: Orders [place] barium swallow Today R13.10 - Dysphagia, unspecified Comprehensive Met. Panel 6 Months I10 - Essential (primary) hypertension Lipid Panel 6 Months E78.00 - Pure hypercholesterolemia, unspecified, I10 - Essential (primary) hypertension Vitamin B12 and Folate 6 Months I10 - Essential (primary) hypertension [place] upper GI series Today R13.10 - Dysphagia, unspecified Complete Blood Count Auto Diff 6 Months I10 - Essential (primary) hypertension Thyroid Stimulating Hormone 6 Months I10 - Essential (primary) hypertension Free T4 (Free Thyroxine) 6 Months I10 - Essential (primary) hypertension Prostate Specific Antigen Scr 6 Months I10 - Essential (primary) hypertension Medications: New azithromycin (Zithromax) For 250 mg dose pack: take 500 mg today (day 1), then 250 mg for 4 days (days 2-5) PO 6 tabs 0RF R06.2 - Wheezing Quality Reporting (2019) Depression/Bipolar (159/160/161/177) PHQ-9: Total score: 3 Coding Level of Care Code Medicare Subsequent (G0439) Diagnoses Medicare annual wellness visit, subsequent Z00.00 Primary hypertension I10 Hypertension type: primary hypertension Hypercholesteremia E78.00 Benign prostatic hyperplasia with urinary frequency N40.1; R35.0 Lower urinary tract symptom detail: urinary frequency Lower urinary tract symptom presence: symptoms present Wheezing R06.2 Oropharyngeal dysphagia R13.12 Dysphagia type: oropharyngeal phase Additional Codes PHQ-9 - 53560 - PHQ-9 Billing: Yes ([id number])
[2024-07-26 12:02] VITALS: BP 124/78; PULSE 84; O2SAT 98; BMI 24.7
== END 2024-07-26 13:40 | disposition home or self-care (01) ==
PROVIDERS: PCP Internal Medicine; Visit Provider Internal Medicine
DX: Z00.00 Encounter for general adult medical examination without abnormal findings (principal); I10 Essential (primary) hypertension; E78.00 Pure hypercholesterolemia, unspecified; N40.1 Benign prostatic hyperplasia with lower urinary tract symptoms; R35.0 Frequency of micturition; R06.2 Wheezing; R13.12 Dysphagia, oropharyngeal phase

== ENCOUNTER → 2024-07-26 11:55 | Outpatient (BNVA) | payer MEDICARE, SELFPAY | PROVIDERS: PCP Internal Medicine; Visit Provider Internal Medicine | DX: Z00.00 Encounter for general adult medical examination without abnormal findings (principal); I10 Essential (primary) hypertension; E78.00 Pure hypercholesterolemia, unspecified; N40.1 Benign prostatic hyperplasia with lower urinary tract symptoms; R35.0 Frequency of micturition; R06.2 Wheezing; R13.12 Dysphagia, oropharyngeal phase | CPT/HCPCS: 96127 ==

== ENCOUNTER 2024-08-11 08:57 | Outpatient (REF) | payer MEDICARE, SELFPAY ==
[2024-08-11 10:51] LABS: PSA,Total (Free>4and<10) 15.24 ng/mL (0.00-4.00)
== END 2024-08-11 08:58 | disposition home or self-care (01) ==
LOC: HO.LAB 08:57
PROVIDERS: PCP Internal Medicine; Visit Provider Nurse Practitioner Family
DX: N40.0 Benign prostatic hyperplasia without lower urinary tract symptoms (principal); R97.20 Elevated prostate specific antigen [PSA]; Z12.5 Encounter for screening for malignant neoplasm of prostate
CPT/HCPCS: 36415; 84153

== ENCOUNTER 2024-08-15 08:48 | Outpatient (AMB) | payer MEDICARE, SELFPAY ==
--- NOTE | 2024-08-15 08:48 | A.OFFVIS_ITS ---
Intake Visit Reasons: 4m/PSA Intake Note: Patient presents today for tele-visit follow up on: Elevated PSA and lab results PSA: 15.24 Urology Medications: Finasteride Blood Thinner: none Print Inspector Required: No Accompanied by: Self / Same As Patient Allergies No Known Allergies Allergy (Verified 08/15/24 09:40) Medication List - Last Reconciled 08/15/24 by MARGARET Nichols-ESTELLE atorvastatin 20 mg PO DAILY finasteride 5 mg PO DAILY 90 days hydrocortisone 2.5% (Proctosol HC) [address] BID-QID PRN lisinopril-hydrochlorothiazide 20-25 mg 1 tab PO DAILY HPI Comments Details: Jim is a pleasant 69-year-old male patient of Dr. Maddox. He has a past medical history of depression, neck pain with a history of cervical spinal surgery, and elevated PSA. He is being followed up on today via video telehealth for his elevated PSA. In discussion with the patient today reports to be doing and feeling well. Recent PSA results reviewed with the patient today as noted and trended below. When asked he reports having ran out of refills on finasteride and has not been taking it over the last 4 months. Previous workup has included a MRI of the prostate 02/27 that noted the bladder and urethral are unremarkable. No inguinal adenopathy. No suspicious prostate lesion identified. Patient with a history of negative prostate biopsy 07/[address] Ellis noted benign with scattered foci of acute and chronic inflammation throughout. He denies any bothersome urinary issues or concerns. PSAs are as follows: 11/26 14.5, 05/29 6.8 % free PSA 27%, 03/28 10.3, 01/27 15.0, 04/29 12, 08/29 15.2 Discussed variability in PSA. On transrectal ultrasound estimated volume of prostate was approximately 77 mL. He does report noting urinary urgency he otherwise denies urinary frequency, incontinence, nocturia, hematuria, dysuria, foul smelling urine, changes to urinary stream, flank pain, fever, and or chills. We discussed compliance with medications as prescribed. We also discussed repeat biopsy. He is happy with his current voiding parameters. He otherwise offers no other issues or concerns at this time. [facility] Medical History Wheezing Trigger finger, right middle finger Viral upper respiratory illness Urinary urgency Depression Neck pain with history of cervical spinal surgery Surgical History Hx of tonsillectomy S/P right knee arthroscopy History of cholecystectomy Family History Mother Breast cancer, Onset Age: 45 Asthma Father Type 1 diabetes Kidney transplanted HTN (hypertension) Sister Depression Mental health disorder Maternal Grandmother Pancreatic cancer Maternal Aunt Pancreatic cancer Paternal Grandfather Type 2 diabetes Paternal Uncle Type 2 diabetes Social History Household Members: Spouse Housing: House Are you a primary career education teacher to a significant other at home: No Do you presently have visiting nurse or other home services: No 75 years or older and lives alone: No Alcohol intake: current Alcohol intake frequency: other Comment: 2 days a week 1-2 drinks Patient Tobacco Use Status: Never used Tobacco e-Cigarette/Vaping Use: Never Used Second Hand Smoke Exposure: No service: No Current occupational status: retired Current occupation: rt hand Cognitive needs: No Hearing needs: No Vision needs: Yes (glasses ) Review of Systems Const All systems reviewed & are unremarkable except as noted in HPI and below Physical Exam Const General: cooperative, healthy appearing, comfortable, no acute distress, well developed and alert Orientation/consciousness: patient oriented x3 Resp Effort & Inspection: normal respiratory effort and able to speak in complete sentences Neuro General: patient oriented x3 Psych Appearance: grossly normal and well kempt Speech and movement: Clear speech present Attitude: cooperative Thought process: Normal thought process present Thought content: Normal thought content present Insight: Fair insight present (Psych) Judgement: Fair judgement present (Psych) Telehealth Telehealth [facility] Location of provider rendering services: practice address Location of patient: address on file Patient Identification confirmed using: Name, : Yes Telehealth method: video Patient verbally consented to treatment: Yes Patient verbally consented to billing insurance company: Yes Patient informed of any privacy concerns related to visit: Yes Minutes spent on Phone/Video with Pt.: 15 Assessment & Plan Assessment & Plan (1) Elevated PSA: Code(s): R97.20 - Elevated prostate specific antigen [PSA] Category: Medical (2) Prostate enlargement: Comment: transrectal biopsy Dr. Gold scruggs 07/2023 Code(s): N40.0 - Benign prostatic hyperplasia without lower urinary tract symptoms Category: Medical (3) Chronic prostatitis: Code(s): N41.1 - Chronic prostatitis Category: Medical (4) BPH (benign prostatic hyperplasia): Comment: Prostate Biopsy Dr. Heri Ronquillo 07/2023 Code(s): N40.0 - Benign prostatic hyperplasia without lower urinary tract symptoms Category: Medical Qualifiers: Lower urinary tract symptom presence: symptoms present Lower urinary tract symptom detail: urinary frequency Qualified Code(s): N40.1 - Benign prostatic hyperplasia with lower urinary tract symptoms; R35.0 - Frequency of micturition Plan Recent PSA results reviewed with the patient today; as noted above. Patient currently denies any bothersome urinary issues or concerns. Reports be happy with current voiding parameters. Restart finasteride as discussed and prescribed; refill provided Discussed at length potential causes of variability in PSA. Will obtain PSA in 4 months. Follow-up in 4 months with PSA to be completed prior; or sooner with any issues, concerns, and or questions. Orders: Orders Prostate Specific Antigen 4 Months R97.20 - Elevated prostate specific antigen [PSA] Medications: Refilled finasteride 5 mg PO DAILY 90 days 90 tabs 3RF N13.8 - Other obstructive and reflux uropathy, N40.1 - Benign prostatic hyperplasia with lower urinary tract symptoms, R33.9 - Retention of urine, unspecified Patient Instructions: The patient had an opportunity to ask questions regarding the treatment plan. All questions were answered. Physical exam, labs, and imaging were discussed and reviewed in detail. As well as risks, benefits, and discussion of treatment choices. No major barriers to understanding were identified. The patient expressed understanding and agreement with the above treatment plan. The patient was made aware they should contact our office by phone for worsening of their current condition, the appearance of new symptoms, or with any questions or concerns. Compliance is encouraged with any medications and follow up testing that is ordered. It is a privilege to be allowed the opportunity to participate in? your urological care.? Again, if you have any questions or concerns If you have any questions or concerns please do not hesitate to contact me. The office is [phone]. This note is constructed using voice recognition software. While every effort has been made to ensure accuracy parcel post order clerk errors may have been included. Yours sincerely, CARLOZ Nichols Coding Level of Care Code Tele Est Pt Level 3 (88564) Diagnoses Elevated PSA R97.20 Prostate enlargement N40.0 Chronic prostatitis N41.1 Benign prostatic hyperplasia with urinary frequency N40.1; R35.0 Lower urinary tract symptom presence: symptoms present Lower urinary tract symptom detail: urinary frequency
== END 2024-08-15 09:47 | disposition home or self-care (01) ==
LOC: HO.HUSH 08:48
PROVIDERS: PCP Internal Medicine; Visit Provider Nurse Practitioner Family
DX: R97.20 Elevated prostate specific antigen [PSA] (principal); N40.0 Benign prostatic hyperplasia without lower urinary tract symptoms; N41.1 Chronic prostatitis; N40.1 Benign prostatic hyperplasia with lower urinary tract symptoms; R35.0 Frequency of micturition
CPT/HCPCS: 99213

== ENCOUNTER → 2024-10-16 09:30 | Outpatient (BNV) | payer MEDICARE, SELFPAY | PROVIDERS: PCP Internal Medicine; Visit Provider Radiology Diagnostic Radiology | DX: R13.10 Dysphagia, unspecified (principal) | CPT/HCPCS: 74246; 74248 ==

== ENCOUNTER 2024-10-24 12:38 | Outpatient (AMB) | payer MEDICARE, SELFPAY ==
--- NOTE | 2024-10-24 12:39 | A.OFFPC_ITS ---
Intake Visit Reasons: Cold Symptoms Allergies No Known Allergies Allergy (Verified 10/24/24 12:40) Tobacco use date assessed: 10/24/24 Fall risk assessment: No Falls in past year Last assessed Fall Risk: 10/24/24 Dental Screening Dental Screen Date: 10/24/24 Did you have a dental visit in the last 12 months?: Yes Did you have a dental problem in the last 6 months where you did not have access to dental care?: No Was dental information given to patient?: Patient has dentist HPI Cold Symptoms HPI Details coughing near congested , sleepy, 2 days, no feveres, no sob, takes care of kids, The patient is a 69-year-old male presenting with upper respiratory symptoms and possible sinus infection. The patient reports experiencing coughing, clogged ears, a scratchy throat, and lethargy, with an increased amount of sleep over the past few days. He denies having a fever. Initially, he suspected allergies due to watery eyes and a scratchy throat but noted his ears started to feel clogged, similar to ear infections his grandsons recently experienced. The patient tried to manage his symptoms with a sinus rhinitis treatment previously recommended, which provided some relief. However, he expressed concern about his energy levels, particularly due to responsibilities for his grandchildren. The patient confirmed no known allergies to antibiotics and stated that a penicillin-based antibiotic has been effective for sinus issues in the past. Concerning his medical history, he follows up with a urologist regarding BPH and prostatitis, for which he is on finasteride. He last had an upper GI series in October that showed moderate gastroesophageal reflux related to GERD.- Respiratory: Denies shortness of breath. - ENT: Reports coughing, clogged ears, s cratchy throat, and postnasal drip. Denies fever. - Neurology: Reports lethargy. [facility], LAT[facility] Medical History Wheezing Trigger finger, right middle finger Viral upper respiratory illness Urinary urgency Depression Neck pain with history of cervical spinal surgery Surgical History Hx of tonsillectomy S/P right knee arthroscopy History of cholecystectomy Family History Mother Breast cancer, Onset Age: 45 Asthma Father Type 1 diabetes Kidney transplanted HTN (hypertension) Sister Depression Mental health disorder Maternal Grandmother Pancreatic cancer Maternal Aunt Pancreatic cancer Paternal Grandfather Type 2 diabetes Paternal Uncle Type 2 diabetes Social History Household Members: Spouse Housing: House Are you a primary animal care worker to a significant other at home: No Do you presently have visiting nurse or other home services: No 75 years or older and lives alone: No Alcohol intake: current Alcohol intake frequency: other Comment: 2 days a week 1-2 drinks Patient Tobacco Use Status: Never used Tobacco Tobacco use type: Cigarette e-Cigarette/Vaping Use: Never Used Second Hand Smoke Exposure: No service: No Current occupational status: retired Current occupation: rt hand Cognitive needs: No Hearing needs: No Vision needs: Yes (glasses ) Questionnaire PHQ-9 Over the last 2 weeks, how often have you been bothered by any of the following problems? 1. Little interest or pleasure in doing things: not at all 2. Feeling down, depressed, or hopeless: several days 3. Trouble falling or staying asleep, or sleeping too much: not at all 4. Feeling tired or having little energy: several days 5. Poor appetite or overeating: not at all 6. Feeling bad about yourself - or that you are a failure or have let yourself or your family down: several days 7. Trouble concentrating on things, such as reading the newspaper or watching television: not at all 8. Moving or speaking so slowly that other people could have noticed. Or the opposite - being so fidgety or restless that you have been moving around a lot more than usual: not at all 9. Thoughts that you would be better off or of hurting yourself in some way: not at all Total score: 3 Depression Screening Interpretation: Positive Depression Screening Done: Yes 82101 - PHQ-9 Billing: Yes Source: Developed by Drs. Jimy Head, Elizabeth Lay, Christopher Donahue and colleagues, with an educational niko from [employer]. Thrive Questionnaire Date Thrive assessed: 10/24/24 I am a: Patient What is your living situation today?: I have a steady place to live Within the past 12 months, did the food you bought not last and you didn't have the money to get more?: Never true Within the past 12 months, did you worry whether your food would run out before you got money to buy more?: Never true Do you have trouble paying for medicines?: No Do you have trouble getting transportation to medical appointments?: No Do you have trouble paying your heating and electricity bill?: No Do you have trouble taking care of your child, family member or friend?: No Do you have trouble with day-to-day activities such as bathing, preparing meals, shopping, managing finances, etc.?: No Are you currently unemployed and looking for a job?: No Are you interested in more education?: No Currently or been in a relationship where the following occur: No concerns reported THRIVE Score: 0 AUDIT C Alcohol Use Questionnaire (AUDIT-C) 2. How many drinks containing alcohol do you have on a typical day when you are drinking?: 1 or 2 3. How often do you have six or more drinks on one occasion?: Never Total Score: 0 JUAN J-7 AMB Questionnaire JUAN J-7 Date JUAN J - 7 assessed: 10/24/24 Feeling nervous, anxious, or on edge: 0 = Not at all Not being able to stop or control worryin = Not at all Worrying too much about different things: 0 = Not at all Trouble relaxin = Not at all Being so restless that it is hard to sit still: 0 = Not at all Becoming easily annoyed or irritable: 0 = Not at all Feeling afraid as if something awful might happen: 0 = Not at all Total JUAN J-7 score (0-4 normal; 5-9 mild; 10-14 moderate; 15-21 severe): 0 Source: Developed by Drs. Jimy Head, Elizabeth Lay, Christopher Donahue and colleagues, with an educational niko from [employer]. Physical exam (Primary Care) Tobacco/Smoking Status: Tobacco use Status Tobacco use date assessed 10/24/24 10/24/24 12:42 Patient Tobacco Use Status Never used Tobacco 10/24/24 12:39 Tobacco use type Cigarette 10/24/24 12:42 e-Cigarette/Vaping Use Never Used 10/24/24 12:39 PHQ-9: PHQ-9 Score PHQ-9: Total score 3 10/24/24 13:00 Depression Screening Interpretation: Positive Thrive Assessment: Date of Thrive Assessment Date Thrive assessed 10/24/24 10/24/24 12:42 Currently or been in a relationship where the following occur: No concerns reported Telehealth Telehealth Telehealth Platform: [facility] Location of provider rendering services: practice address Location of patient: address on file Patient Identification confirmed using: Name, : Yes Telehealth method: video Patient verbally consented to treatment: Yes Patient verbally consented to billing insurance company: Yes Patient informed of any privacy concerns related to visit: Yes Minutes spent on Phone/Video with Pt.: 15 Coding Level of Care Code Tele Est Pt Level 3 (23230) Diagnoses Sinus congestion R09.81 Additional Codes PHQ-9 - 20868 - PHQ-9 Billing: Yes ([id number]) Assessment & Plan Assessment & Plan (1) Sinus congestion: Code(s): R09.81 - Nasal congestion Category: Medical Plan: For the sore throat can take Cepacol lozenges, discussed about Delsym to help with dry cough so she can rest and advised to increase oral fluids. Patient als o can take Tylenol for chills and fever. Antibiotic sent in. Call if not any better. Plan - Prescribe a penicillin-based antibiotic to address the possible sinus infection and otitis media, to be taken three times a day for seven days. - Encourage increased fluid intake to aid in symptom relief. - Monitor for symptom improvement or any adverse reactions to the antibiotics. - Continue with current management for BPH and GERD. During the consultation, I discussed with the patient the likely diagnosis of an upper respiratory infection with possible sinusitis and otitis media. I explained the rationale behind prescribing a penicillin-based antibiotic, given the symptoms and absence of known allergies to this class of medication. I advised the patient on the importance of completing the antibiotic course to ensure effective treatment and reduce the risk of resistance. We discussed the potential side effects of antibiotics and the necessity of increased fluid intake to help loosen respiratory secretions. Given the season, I reminded the patient of the prevalence of respiratory infections and assured him there were no alarming symptoms warranting further urgent investigation. Should symptoms not resolve or new symptoms arise, testing for other respiratory illnesses such as COVID-19 or RSV remains an option. - Take the prescribed antibiotic three times daily for seven days. - Drink plenty of fluids to help with symptom relief. - Monitor your symptoms and seek medical attention if symptoms worsen or new symptoms develop. - Complete the full course of antibiotics as prescribed. - Contact the clinic if you experience any adverse reactions to the medication. Medications: New amoxicillin-pot clavulanate 500-125 mg (Augmentin) 1 tab PO TID 21 tabs 0RF R09.81 - Nasal congestion
== END 2024-10-24 18:07 | disposition home or self-care (01) ==
LOC: HO.HMCH 12:38
PROVIDERS: PCP Internal Medicine; Visit Provider Internal Medicine
DX: R09.81 Nasal congestion (principal)

== ENCOUNTER → 2024-10-24 12:38 | Outpatient (BNVA) | payer MEDICARE, SELFPAY | PROVIDERS: PCP Internal Medicine; Visit Provider Internal Medicine | DX: R09.81 Nasal congestion (principal) | CPT/HCPCS: 96127 ==

== ENCOUNTER 2024-11-10 09:09 | Outpatient (REF) | payer MEDICARE, MEDICAID, SELFPAY ==
--- NOTE | ~2024-11-10 | XR_ITS ---
EXAMINATION: XR LUMBOSACRAL SPINE CLINICAL INFORMATION: M54.18 - Radiculopathy, sacral and sacrococcygeal region COMPARISON: None available. TECHNIQUE: Three views of the lumbosacral spine. FINDINGS: There is maintained lumbar lordosis. The vertebral heights and alignment is normal. There is no visible acute fracture, dislocation or subluxation seen. There is mild right lateral spondylosis L2-3 and L3-4 disc levels. No aggressive lytic or sclerotic process seen. SI joints are symmetrical and normal. XR/XR lumbar spine 2-3V IMPRESSION: No visible acute fracture, dislocation or subluxation seen. No aggressive lytic or sclerotic process seen. Electronically signed by: Dexter Law MD 11/10/2024 11:01 AM LORELEI
[2024-11-10 13:24] LABS: MANUAL DIFF FLAG NO
[2024-11-10 13:32] LABS: Basophils Percent Auto 0.3 % (0-2); Eosinophils Absolute Auto 0.6 X10*3/uL (0.0-0.4); Eosinophils Percent Auto 8.6 % (0-4); Hematocrit 40.4 % (42.0-52.0); Hemoglobin 13.8 g/dl (14.0-18.0); Imm Gran Abs Auto 0.01 X10*3/uL (0.00-0.03); Imm Gran Pct Auto 0.1 % (0.0-0.4); Lymphocytes Absolute Auto 1.5 X10*3/uL (1.2-4.9); Lymphocytes Percent Auto 22.9 % (20-40); Mean Corpuscular HGB Conc 34.2 g/dl (31.0-36.0); Mean Corpuscular Hemoglobin 29.4 pg (27.0-33.0); Mean Corpuscular Volume 86.1 fL (80.0-98.0); Mean Platelet Volume 9.6 fL (9.4-12.4); Monocytes Absolute Auto 0.5 X10*3/uL (0.1-1.2); Monocytes Percent Auto 7.9 % (2-11); Neutrophils Percent Auto 60.2 % (45-73); Platelet Count 447 X10*3/uL (160-400); Red Blood Count 4.69 X10*6/uL (4.60-5.80); Red Cell Distribution Width 12.6 % (11.0-16.0); White Blood Count 6.7 X10*3/uL (4.8-10.8)
[2024-11-10 14:01] LABS: Monotest Negative (Negative)
== END 2024-11-10 09:10 | disposition home or self-care (01) ==
LOC: HO.HMGCX 09:09
PROVIDERS: PCP Internal Medicine; Visit Provider Nurse Practitioner Family
DX: R53.83 Other fatigue (principal); M54.18 Radiculopathy, sacral and sacrococcygeal region; G93.39 Other post infection and related fatigue syndromes
CPT/HCPCS: 36415; 72100; 81003; 85025; 86308; 99212

== ENCOUNTER 2024-11-10 09:09 | Outpatient (AMB) | payer MEDICARE, SELFPAY ==
[2024-11-10 09:43] VITALS: BP 122/80; PULSE 89; TEMP 36.8; O2SAT 96; BMI 24.2
--- NOTE | 2024-11-10 09:43 | MHC.OFFWIV ---
Intake Vital Signs 11/10/24 09:43 Height 5 ft 9 in Weight 164 lb BMI 24.2 BP 122/80 Blood Pressure Location Lt brachial Position Sitting Pulse 89 Pulse Source Pulse Oximeter Temp 98.3 F Temp Source Oral Pulse Oximetry (%) 96 Intake Visit Reasons: EP back pain radiating into groin, ear pain Patient Tobacco Use Status: Never used Tobacco Allergies No Known Allergies Allergy (Verified 10/24/24 12:40) Do you need a note to return to daycare/school/sports/work: No HPI EP back pain radiating into groin, ear pain HPI Details This is a 69-year-old male patient who presents to the walk-in clinic today with 2 primary issues. He states that about 3 weeks ago, he developed flu-like symptoms. He is frequently around his 2 young grandchildren who attend daycare, and have had intermittent illnesses over the last several weeks. He reports that he is still having lingering symptoms, the most problematic of which has been fatigue. He states he is becoming very tired/ exhausted early in the evening, where as usually he is up till at least 11:00 at night. He states this past week he did have some vomiting and chills. He denies any fever. He does have an ongoing productive cough. COVID at home was negative. He also reports a lower back pain with radiation into his testicles. He states that a couple of weeks ago, he went to lift one of his grandchildren, and pulled his back. He has been to the chiropractor however continues to have intermittent flares of this radiculopathy. Denies any saddle anesthesia or bowel/bladder dysfunction. Urine dip was normal. [facility] Medical History Wheezing Trigger finger, right middle finger Viral upper respiratory illness Urinary urgency Depression Neck pain with history of cervical spinal surgery Surgical History Hx of tonsillectomy S/P right knee arthroscopy History of cholecystectomy Family History Mother Breast cancer, Onset Age: 45 Asthma Father Type 1 diabetes Kidney transplanted HTN (hypertension) Sister Depression Mental health disorder Maternal Grandmother Pancreatic cancer Maternal Aunt Pancreatic cancer Paternal Grandfather Type 2 diabetes Paternal Uncle Type 2 diabetes Social History Household Members: Spouse Housing: House Are you a primary respiratory care specialist to a significant other at home: No Do you presently have visiting nurse or other home services: No 75 years or older and lives alone: No Alcohol intake: current Alcohol intake frequency: other Comment: 2 days a week 1-2 drinks Patient Tobacco Use Status: Never used Tobacco Tobacco use type: Cigarette e-Cigarette/Vaping Use: Never Used Second Hand Smoke Exposure: No service: No Current occupational status: retired Current occupation: rt hand Cognitive needs: No Hearing needs: No Vision needs: Yes (glasses ) Review of Systems Const All systems reviewed & are unremarkable except as noted in HPI and below Physical Exam Vital Signs: Last Vital Signs Temp 98.3 F 11/10/24 09:43 Pulse 89 11/10/24 09:43 BP 122/80 11/10/24 09:43 Pulse Ox 96 11/10/24 09:43 BMI result Body Mass Index 24.2 Const General: cooperative, healthy appearing, comfortable and no acute distress Nutritional Appearance: average body habitus and well nourished Limitations: no limitations HEENT Head: Yes normal to inspection Ears: hearing grossly normal bilaterally Neck Neck: Yes no lymphadenopathy Resp Effort & Inspection: normal respiratory effort Auscultation: clear to auscultation bilaterally Cardio Rate: regular rate Rhythm: regular rhythm Heart sounds: S1 normal heart sound present and S2 normal heart sound present Back/Spine/Pelvis Thoracic/Lumbar Spine: thoracic and lumbar spine normal to inspection and thoraco-lumbar ROM normal Skin General skin exam: no rashes or lesions noted Extrem General: Yes capillary refill normal and Yes no clubbing, cyanosis or edema Psych Appearance: grossly normal Mental Status: mental status grossly normal Speech and movement: Normal speech and movement present Results AMB Urinalysis, Automated UA Leukoctes 0 Kendall/uL Last Edit by Gissell Torres CMA on 11/10/24 10:02 UA Nitrite Negative Last Edit by Gissell Torres CMA on 11/10/24 10:02 UA Urobilinogen 0.2 mg/dL Last Edit by Gissell Torres CMA on 11/10/24 10:02 UA Protein 0 mg/dL Last Edit by Gissell Torres CMA on 11/10/24 10:02 UA pH 6.0 Last Edit by Gissell Torres CMA on 11/10/24 10:02 UA Blood 0 Jigar/uL Last Edit by Gissell Torres, MICHELLE on 11/10/24 10:02 UA Specific [place] 1.030 Last Edit by Gissell Torres, MICHELLE on 11/10/24 10:02 UA Ketone Negative Last Edit by Gissell Torres, MICHELLE on 11/10/24 10:02 UA Bilirubin 0 mg/dL Last Edit by Gissell Torres, MICHELLE on 11/10/24 10:02 UA Glucose 0 mg/dL Last Edit by Gissell Torres CMA on 11/10/24 10:02 Assessment & Plan Assessment & Plan (1) Sacral radiculopathy: Code(s): M54.18 - Radiculopathy, sacral and sacrococcygeal region Plan: Lumbar XR ordered. This appears to be an S1/S2 radiculopathy. If he develops any saddle anesthesia, or bowel / bladder dysfunction, he should go to the emergency department. He may benefit from either physical therapy, or additional imaging/pain management evaluation for injection therapy if this should continue. We discussed this during his visit, and he will pursue this further with PCP Dr. Maddox as needed. (2) Fatigue: Code(s): R53.83 - Other fatigue Qualifiers: Fatigue type: other post infection and related fatigue syndromes Qualified Code(s): G93.39 - Other post infection and related fatigue syndromes Plan: CBC and mono test ordered for patient, given ongoing fatigue and lingering symptoms for nearly one-month. Advised to continue conservative measures at home. He will be notified of lab results once these are available. I encouraged him to schedule a follow-up with PCP within the next few weeks should any further workup be needed. Patient verbalizes understanding and agrees to plan. Orders: Orders AMB Urinalysis Automated Today Krista Meyers PA-C Z13.9 - Encounter for screening, unspecified XR lumbar spine 2-3V Today MARGARET Hernandez M54.18 - Radiculopathy, sacral and sacrococcygeal region Monotest Today MARGARET Hernandez R53.83 - Other fatigue Complete Blood Count Auto Diff Today MARGARET Hernandez R53.83 - Other fatigue Coding Level of Care Code Est Pt Level 4 (29002) Diagnoses Sacral radiculopathy M54.18 Other post infection and related fatigue syndromes G93.39 Fatigue type: other post infection and related fatigue syndromes
== END 2024-11-10 10:57 | disposition home or self-care (01) ==
PROVIDERS: PCP Internal Medicine; Visit Provider Nurse Practitioner Family
DX: M54.18 Radiculopathy, sacral and sacrococcygeal region (principal); G93.39 Other post infection and related fatigue syndromes; Z13.9 Encounter for screening, unspecified

== ENCOUNTER → 2024-11-10 10:47 | Outpatient (BNV) | payer MEDICARE, MEDICAID, SELFPAY | PROVIDERS: PCP Internal Medicine; Visit Provider Radiology Diagnostic Radiology | DX: M54.18 Radiculopathy, sacral and sacrococcygeal region (principal) | CPT/HCPCS: 72100 ==

== ENCOUNTER 2024-12-11 10:30 | Outpatient (REF) | payer MEDICARE, SELFPAY ==
[2024-12-11 13:57] LABS: Prostate Specific Antigen 4.21 ng/mL (<0.05-4.0)
== END 2024-12-11 10:31 | disposition home or self-care (01) ==
LOC: HO.HMGCLDS 10:30
PROVIDERS: PCP Internal Medicine; Visit Provider Nurse Practitioner Family
DX: R97.20 Elevated prostate specific antigen [PSA] (principal); Z12.5 Encounter for screening for malignant neoplasm of prostate
CPT/HCPCS: 36415; 84153

== ENCOUNTER 2024-12-12 08:37 | Outpatient (AMB) | payer MEDICARE, SELFPAY ==
--- NOTE | 2024-12-12 08:35 | A.OFFVIS_ITS ---
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 Maddox. He has a past medical history of depression, neck pain with a history of cervical spinal surgery, and elevated PSA. He presents to the office today for follow-up of his elevated PSA. In discussion with the patient today reports to be doing and f eeling well. He denies having had any bothersome urinary issues or concerns since his last office visit. He reports compliance with finasteride as prescribed as previously he had not been taking the medication. Recent PSA results reviewed with the patient today as noted and trended below. Previous workup has included a MRI of the prostate 02/27 that noted the bladder and urethral are unremarkable. No inguinal adenopathy. No suspicious prostate lesion identified. Patient with a history of negative prostate biopsy 07/[address] Duran noted benign with scattered foci of acute and chronic inflammation throughout. He denies any bothersome urinary issues or concerns. 11/26 14.5, 05/29 6.8 % free PSA 27%, 03/28 10.3, 01/27 15.0, 04/29 12, 08/29 15.2, 12/29 4.2 Discussed variability in PSA. On transrectal ultrasound estimated volume of prostate was approximately 77 mL. He does report noting urinary urgency he otherwise denies urinary frequency, incontinence, nocturia, hematuria, dysuria, foul smelling urine, changes to urinary stream, flank pain, fever, and or chills. We discussed compliance with medications as prescribed. We discussed close surveillance monitoring. He is happy with his current voiding parameters. He otherwise offers no other issues or concerns at this time. Plan The current treatment regimen has proven effective in managing the patient's Benign Prostatic Hyperplasia, as evidenced by the significant decrease in PSA levels. The patient is advised to continue with the current medications. Regular follow-ups are essential to monitor continued effectiveness and address any potential future concerns, scheduled in six months unless symptoms suggest an earlier review. Patient was informed and verbally consented to the use of an ambient scribe for clinic note documentation during this visit. Discussion Notes During the consultation, we discussed the significant improvement in his PSA levels following compliance with the prescribed medication regimen. The patient expressed understanding of the importance of maintaining this treatment to manage his BPH effectively. I reiterated the success of his current management plan and the importance of ongoing medication adherence. Additionally, we reviewed the importance of urinary self-awareness and strategies to prevent episodes of urge incontinence. Follow-up discussions also emphasized the avoidance of overly restrictive measures or changes to the current effective plan. The patient is encouraged to remain consistent with his regimen and to return in six months for a review, earlier if necessary. [facility] Medical History Wheezing Trigger finger, right middle finger Viral upper respiratory illness Urinary urgency Depression Neck pain with history of cervical spinal surgery Surgical History Hx of tonsillectomy S/P right knee arthroscopy History of cholecystectomy Family History Mother Breast cancer, Onset Age: 45 Asthma Father Type 1 diabetes Kidney transplanted HTN (hypertension) Sister Depression Mental health disorder Maternal Grandmother Pancreatic cancer Maternal Aunt Pancreatic cancer Paternal Grandfather Type 2 diabetes Paternal Uncle Type 2 diabetes Social History Household Members: Spouse Housing: House Are you a primary life care planner to a significant other at home: No Do you presently have visiting nurse or other home services: No 75 years or older and lives alone: No Alcohol intake: current Alcohol intake frequency: other Comment: 2 days a week 1-2 drinks Patient Tobacco Use Status: Never used Tobacco Tobacco use type: Cigarette e-Cigarette/Vaping Use: Never Used Second Hand Smoke Exposure: No service: No Current occupational status: retired Current occupation: rt hand Cognitive needs: No Hearing needs: No Vision needs: Yes (glasses ) Review of Systems Const All systems reviewed & are unremarkable except as noted in HPI and below Physical Exam Const General: cooperative, healthy appearing, comfortable, no acute distress, well developed and alert Nutritional Appearance: average body habitus Orientation/consciousness: patient oriented x3 Limitations: no limitations Resp Effort & Inspection: normal respiratory effort and able to speak in complete sentences Neuro General: patient oriented x3 Psych Appearance: grossly normal and well kempt Speech and movement: Clear speech present Attitude: cooperative Thought process: Normal thought process present Thought content: Normal thought content present Insight: Fair insight present (Psych) Judgement: Fair judgement present (Psych) Results AMB Urinalysis, Automated UA Leukoctes 0 Kendall/uL Last Edit by [employer] [facility] on 12/12/24 09:04 UA Nitrite Last Edit by [employer] on 12/12/24 09:04 UA Urobilinogen 0.2 mg/dL Last Edit by [employer] [facility] on 12/12/24 09:04 UA Protein 15 mg/dL Last Edit by [employer] [facility] on 12/12/24 09:04 UA pH 6.0 Last Edit by [employer] on 12/12/24 09:04 UA Blood 10 Jigar/uL Last Edit by [employer] [facility] on 12/12/24 09:04 UA Specific Furlong 1.020 Last Edit by [employer] on 12/12/24 09:04 UA Ketone Last Edit by [employer] [facility] on 12/12/24 09:04 UA Bilirubin 0 mg/dL Last Edit by [employer] on 12/12/24 09:04 UA Glucose 0 mg/dL Last Edit by [employer] on 12/12/24 09:04 Results Reviewed Results Reviewed: Laboratory Last Values Urine pH (Auto) 6.0 12/12/24 09:02 Specific Furlong (Auto) 1.020 12/12/24 09:02 Urine Protein (Auto) 15 mg/dL 12/12/24 09:02 Glucose (UA)(Auto) 0 mg/dL 12/12/24 09:02 Urine Blood (Auto) 10 Jigar/uL 12/12/24 09:02 Urine Bilirubin (Auto) 0 mg/dL 12/12/24 09:02 Urine Urobilinogen (Auto) 0.2 mg/dL 12/12/24 09:02 Leukocyte Esterase (Auto) 0 Kendall/uL 12/12/24 09:02 Assessment & Plan Assessment & Plan (1) BPH (benign prostatic hyperplasia): Comment: Prostate Biopsy Dr. Heri Ronquillo 07/2023 Code(s): N40.0 - Benign prostatic hyperplasia without lower urinary tract symptoms Category: Medical Qualifiers: Lower urinary tract symptom detail: urinary frequency Lower urinary tract symptom presence: symptoms present Qualified Code(s): N40.1 - Benign prostatic hyperplasia with lower urinary tract symptoms; R35.0 - Frequency of micturition Plan In office urinalysis results reviewed with the patient today; as noted above. Recent PSA results reviewed with the patient today; as noted above. He reports be happy with current voiding parameters. We discussed continuation of surveillance monitoring and importance of adherence to medications as prescribed. Continue finasteride Will obtain PSA in 6 months. Follow-up in 6 months with PSA; or sooner with any issues, concerns, and or questions. Orders: Orders AMB Urinalysis Automated Today Z13.9 - Encounter for screening, unspecified Prostate Specific Antigen 6 Months N40.1 - Benign prostatic hyperplasia with lower urinary tract symptoms, R35.0 - Frequency of micturition Patient Instructions: The patient had an opportunity to ask questions regarding the treatment plan. All questions were answered. Physical exam, labs, and imaging were discussed and reviewed in detail. As well as risks, benefits, and discussion of treatment choices. No major barriers to understanding were identified. The patient expressed understanding and agreement with the above treatment plan. The patient was made aware they should contact our office by phone for worsening of their current condition, the appearance of new symptoms, or with any questions or concerns. Compliance is encouraged with any medications and follow up testing that is ordered. It is a privilege to be allowed the opportunity to participate in? your urological care.? Again, if you have any questions or concerns If you have any questions or concerns please do not hesitate to contact me. The office is [phone]. This note is constructed using voice recognition software. While every effort has been made to ensure accuracy information technology director errors may have been included. Yours sincerely, CARLOZ Nichols Coding Level of Care Code Est Pt Level 3 (61559) Complex EM visit Add On G2211 Diagnoses Benign prostatic hyperplasia with urinary frequency N40.1; R35.0 Lower urinary tract symptom detail: urinary frequency Lower urinary tract symptom presence: symptoms present
== END 2024-12-12 09:11 | disposition home or self-care (01) ==
LOC: HO.HUSH 08:37
PROVIDERS: PCP Internal Medicine; Visit Provider Nurse Practitioner Family
DX: N40.1 Benign prostatic hyperplasia with lower urinary tract symptoms (principal); R35.0 Frequency of micturition; Z13.9 Encounter for screening, unspecified
CPT/HCPCS: 99213; G2211

== ENCOUNTER → 2024-12-12 08:37 | Outpatient (BNVA) | payer MEDICARE, SELFPAY | PROVIDERS: PCP Internal Medicine; Visit Provider Nurse Practitioner Family | DX: N40.1 Benign prostatic hyperplasia with lower urinary tract symptoms (principal); R35.0 Frequency of micturition | CPT/HCPCS: 81003; 99212 ==

== ENCOUNTER 2025-01-25 11:41 | Outpatient (AMB) | payer MEDICARE, SELFPAY ==
[2025-01-25 11:49] VITALS: BP 118/70; PULSE 81; O2SAT 97; BMI 24.8
--- NOTE | 2025-01-25 11:49 | A.OFFPC_ITS ---
Vital Signs 01/25/25 11:49 Height 5 ft 9 in Weight 168 lb BMI 24.8 BP 118/70 Blood Pressure Location Lt brachial Position Sitting Pulse 81 Pulse Source Pulse Oximeter Pulse Oximetry (%) 97 Oxygen Delivery Method Room Air Intake Visit Reasons: wheezing, HTN Allergies No Known Allergies Allergy (Verified 01/25/25 11:50) Medication List - Last Reconciled 01/25/25 by Refugio Maddox MD atorvastatin 20 mg PO DAILY finasteride 5 mg PO DAILY 90 days lisinopril-hydrochlorothiazide 20-25 mg 1 tab PO DAILY Tobacco use date assessed: 10/24/24 Fall risk assessment: No Falls in past year Last assessed Fall Risk: 01/25/25 Dental Screening Dental Screen Date: 10/24/24 [facility] Medical History Wheezing Trigger finger, right middle finger Viral upper respiratory illness Urinary urgency Depression Neck pain with history of cervical spinal surgery Surgical History Hx of tonsillectomy S/P right knee arthroscopy History of cholecystectomy Family History Mother Breast cancer, Onset Age: 45 Asthma Father Type 1 diabetes Kidney transplanted HTN (hypertension) Sister Depression Mental health disorder Maternal Grandmother Pancreatic cancer Maternal Aunt Pancreatic cancer Paternal Grandfather Type 2 diabetes Paternal Uncle Type 2 diabetes Social History Household Members: Spouse Housing: House Are you a primary intensive care unit registered nurse to a significant other at home: No Do you presently have visiting nurse or other home services: No 75 years or older and lives alone: No Alcohol intake: current Alcohol intake frequency: other Comment: 2 days a week 1-2 drinks Patient Tobacco Use Status: Never used Tobacco Tobacco use type: Cigarette e-Cigarette/Vaping Use: Never Used Second Hand Smoke Exposure: No service: No Current occupational status: retired Current occupation: rt hand Cognitive needs: No Hearing needs: No Vision needs: Yes (glasses ) Questionnaire PHQ-9 Over the last 2 weeks, how often have you been bothered by any of the following problems? 1. Little interest or pleasure in doing things: not at all 2. Feeling down, depressed, or hopeless: not at all 3. Trouble falling or staying asleep, or sleeping too much: not at all 4. Feeling tired or having little energy: several days 5. Poor appetite or overeating: not at all 6. Feeling bad about yourself - or that you are a failure or have let yourself or your family down: not at all 7. Trouble concentrating on things, such as reading the newspaper or watching television: not at all 8. Moving or speaking so slowly that other people could have noticed. Or the op posite - being so fidgety or restless that you have been moving around a lot more than usual: not at all 9. Thoughts that you would be better off or of hurting yourself in some way: not at all Total score: 1 Depression Screening Interpretation: Positive Depression Screening Done: Yes Source: Developed by Drs. Jimy Head, Elizabeth Lay, Christopher Donahue and colleagues, with an educational niko from [employer]. Thrive Questionnaire Date Thrive assessed: 01/25/25 I am a: Patient What is your living situation today?: I have a steady place to live Within the past 12 months, did the food you bought not last and you didn't have the money to get more?: I choose not to answer this question Within the past 12 months, did you worry whether your food would run out before you got money to buy more?: I choose not to answer this question Do you have trouble paying for medicines?: I choose not to answer this question Do you have trouble getting transportation to medical appointments?: I choose not to answer this question Do you have trouble paying your heating and electricity bill?: I choose not to answer this question Do you have trouble taking care of your child, family member or friend?: I choose not to answer this question Do you have trouble with day-to-day activities such as bathing, preparing meals, shopping, managing finances, etc.?: I choose not to answer this question Are you currently unemployed and looking for a job?: I choose not to answer this question Are you interested in more education?: I choose not to answer this question Please select the resources that you would like help with: None Currently or been in a relationship where the following occur: I choose not to answer THRIVE Score: 0 AUDIT C Alcohol Use Questionnaire (AUDIT-C) 1. How often do you have a drink containing alcohol?: 2-4 times a month 2. How many drinks containing alcohol do you have on a typical day when you are drinking?: 1 or 2 3. How often do you have six or more drinks on one occasion?: Never Total Score: 2 JUAN J-7 AMB Questionnaire JUAN J-7 Date JUAN J - 7 assessed: 10/24/24 Feeling nervous, anxious, or on edge: 0 = Not at all Not being able to stop or control worryin = Not at all Worrying too much about different things: 0 = Not at all Trouble relaxin = Not at all Being so restless that it is hard to sit still: 0 = Not at all Becoming easily annoyed or irritable: 0 = Not at all Feeling afraid as if something awful might happen: 0 = Not at all Total JUAN J-7 score (0-4 normal; 5-9 mild; 10-14 moderate; 15-21 severe): 0 Source: Developed by Drs. Jimy Head, Elizabeth Lay, Christopher Donahue and colleagues, with an educational niko from [employer]. Physical exam (Primary Care) Vital Signs: Last Vital Signs Pulse 81 01/25/25 11:49 BP 118/70 01/25/25 11:49 Pulse Ox 97 01/25/25 11:49 Oxygen Delivery Method Room Air 01/25/25 11:49 BMI result Body Mass Index 24.8 Tobacco/Smoking Status: Tobacco use Status Tobacco use date assessed 10/24/24 01/25/25 11:54 Patient Tobacco Use Status Never used Tobacco 01/25/25 11:54 Tobacco use type Cigarette 01/25/25 11:54 e-Cigarette/Vaping Use Never Used 01/25/25 11:54 PHQ-9: PHQ-9 Score PHQ-9: Total score 1 01/25/25 12:12 Depression Screening Interpretation: Positive Thrive Assessment: Date of Thrive Assessment Date Thrive assessed 01/25/25 01/25/25 11:54 Currently or been in a relationship where the following occur: I choose not to answer Const General: alert; No acute distress Eyes Conjunctivae: conjunctivae normal Resp Auscultation: clear to auscultation bilaterally Cardio Rate: regular rate Rhythm: regular rhythm GI Inspection: Yes normal to inspection Extrem General: Yes normal to inspection and No edema Coding Level of Care Code Est Pt Level 4 (14277) Diagnoses Low back pain M54.50 Benign prostatic hyperplasia with urinary frequency N40.1; R35.0 Lower urinary tract symptom detail: urinary frequency Lower urinary tract symptom presence: symptoms present Mild anemia D64.9 Primary hypertension I10 Hypertension type: primary hypertension Assessment & Plan Assessment & Plan (1) Low back pain: Code(s): M54.50 - Low back pain, unspecified Category: Medical Plan: Resolved (2) BPH (benign prostatic hyperplasia): Comment: Prostate Biopsy Dr. Liriano Benign 07/2023 Code(s): N40.0 - Benign prostatic hyperplasia without lower urinary tract symptoms Category: Medical Qualifiers: Lower urinary tract symptom detail: urinary frequency Lower urinary tract symptom presence: symptoms present Qualified Code(s): N40.1 - Benign prostatic hyperplasia with lower urinary tract symptoms; R35.0 - Frequency of micturition Plan: Refill done and continue to follow-up with urology (3) Mild anemia: Code(s): D64.9 - Anemia, unspecified Category: Medical Plan: Advised to get blood work follow-up (4) Hypertension: Code(s): I10 - Essential (primary) hypertension Category: Medical Qualifiers: Hypertension type: primary hypertension Qualified Code(s): I10 - Essential (primary) hypertension Plan: Continue with blood pressure medication. Decrease salt intake and exercise patient on lisinopril hydrochlorothiazide. Advised to get blood work done. Updated request for blood work in the chart Plan History of Present Illness The patient is a 69-year-old male presenting with acute low back pain. This condition was previously evaluated by orthopedics on December 08, at which time recommendations included a lumbar stabilization program through physical therapy. Medications, such as Meloxicam or Celebrex, were suggested, along with steroids, to manage the back pain. Despite these treatments, the patient has needed additional evaluation, including a visit to an urgent care center. This episode occurs within the context of a negative prostate biopsy in 2022 and continued monitoring of PSA levels. Recent labs in November showed anemia with a hemoglobin of 13.8 and a PSA of 4.21. Health Maintenance - Ongoing monitoring of PSA levels due to history of benign prostatic hyperplasia. - Review and management of patient?s anemia, particularly given laboratory findings of hemoglobin at 13.8. Social History Review of Systems - Musculoskeletal: Reports low back pain. - Genitourinary: Denies symptoms related to prostate issues currently. Physical Exam Results - Labs: Hemoglobin 13.8 (noted in November). - Labs: PSA 4.21 (last recorded value). Plan 1. 8 from November, will be reviewed with potential further testing. Regular screening and assessment of PSA levels should proceed given his history of benign prostatic hyperplasia, despite a negative prostate biopsy in 2022.: Patient was informed and verbally consented to the use of an ambient scribe for clinic note documentation during this visit. Discussion Notes I discussed with the patient the ongoing management of his acute low back pain, emphasizing the role of physical therapy in achieving lumbar stabilization. The patient was informed about medication options, including Meloxicam, Celebrex, and steroids, with a review of their intended benefits and possible side effects. The importance of adherence to the physical therapy regimen was highlighted as a fundamental component of his management. Regarding the benign prostatic hyperplasia, I reiterated the need for routine PSA monitoring despite previous negative biopsy results. The patient received education on potential symptoms that should prompt earlier evaluation. Additionally, the implications of the anemia found in November?s labs were discussed, and we agreed to monitor these levels closely. Patient Instructions - Continue with physical therapy for back pain management. - Monitor for and report if low back pain worsens. - Discuss with me if there are side effects from Meloxicam or Celebrex. - Continue regular PSA checks as advised. - Keep track of any new or worsening symptoms and seek care if needed. Orders: Orders Prostate Specific Antigen Today N40.1 - Benign prostatic hyperplasia with lower urinary tract symptoms, R35.0 - Frequency of micturition Medications: Refilled finasteride 5 mg PO DAILY 90 tabs 3RF 90 days N13.8 - Other obstructive and reflux uropathy, N40.1 - Benign prostatic hyperplasia with lower urinary tract symptoms, R33.9 - Retention of urine, unspecified
== END 2025-01-25 12:20 | disposition home or self-care (01) ==
LOC: HO.HMCH 11:42
PROVIDERS: PCP Internal Medicine; Visit Provider Internal Medicine
DX: M54.50 Low back pain, unspecified (principal); N40.1 Benign prostatic hyperplasia with lower urinary tract symptoms; R35.0 Frequency of micturition; D64.9 Anemia, unspecified; I10 Essential (primary) hypertension

== ENCOUNTER → 2025-01-25 11:41 | Outpatient (BNVA) | payer MEDICARE, SELFPAY | PROVIDERS: PCP Internal Medicine; Visit Provider Internal Medicine | DX: N40.1 Benign prostatic hyperplasia with lower urinary tract symptoms (principal); R35.0 Frequency of micturition; D64.9 Anemia, unspecified; I10 Essential (primary) hypertension | CPT/HCPCS: 99212 ==

== ENCOUNTER 2025-04-19 12:54 | Outpatient (AMB) | payer MEDICARE, SELFPAY ==
--- NOTE | 2025-04-19 13:13 | A.OFFPC_ITS ---
Vital Signs 3 04/19/25 13:14 Height 5 ft 9 in Weight 166 lb 4 oz BMI 24.5 BP 126/68 Blood Pressure Location Lt brachial Position Sitting Pulse 72 Pulse Source Pulse Oximeter Temp 97.3 F Temp Source Temporal Artery Scan Pulse Oximetry (%) 94 Oxygen Delivery Method Room Air Intake Visit Reasons: Hip pain Intake Note: Patient is here to follow up on Left Hip pain. 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 per policy Accompanied by: Self / Same As Patient Allergies No Known Allergies Allergy (Verified 04/19/25 13:14) Tobacco use date assessed: 04/19/25 Fall risk assessment: No Falls in past year Last assessed Fall Risk: 04/19/25 Dental Screening Dental Screen Date: 10/24/24 [facility] Medical History Wheezing Trigger finger, right middle finger Viral upper respiratory illness Urinary urgency Depression Neck pain with history of cervical spinal surgery Surgical History Hx of tonsillectomy S/P right knee arthroscopy History of cholecystectomy Family History Mother Breast cancer, Onset Age: 45 Asthma Father Type 1 diabetes Kidney transplanted HTN (hypertension) Sister Depression Mental health disorder Maternal Grandmother Pancreatic cancer Maternal Aunt Pancreatic cancer Paternal Grandfather Type 2 diabetes Paternal Uncle Type 2 diabetes Social History Household Members: Spouse Housing: House Are you a primary hospice care sales consultant to a significant other at home: No Do you presently have visiting nurse or other home services: No 75 years or older and lives alone: No Alcohol intake: current Alcohol intake frequency: other Comment: 2 days a week 1-2 drinks Patient Tobacco Use Status: Never used Tobacco Tobacco use type: Cigarette e-Cigarette/Vaping Use: Never Used Second Hand Smoke Exposure: No service: No Current occupational status: retired Current occupation: rt hand Cognitive needs: No Hearing needs: No Vision needs: Yes (glasses ) Questionnaire Thrive Questionnaire Date Thrive assessed: 01/25/25 I am a: Patient What is your living situation today?: I have a steady place to live Within the past 12 months, did the food you bought not last and you didn't have the money to get more?: I choose not to answer this question Within the past 12 months, did you worry whether your food would run out before you got money to buy more?: I choose not to answer this question Do you have trouble paying for medicines?: I choose not to answer this question Do you have trouble getting transportation to medical appointments?: I choose not to answer this question Do you have trouble paying your heating and electricity bill?: I choose not to answer this question Do you have trouble taking care of your child, family member or friend?: I choose not to answer this question Do you have trouble with day-to-day activities such as bathing, preparing meals, shopping, managing finances, etc.?: I choose not to answer this question Are you currently unemployed and looking for a job?: I choose not to answer this question Are you interested in more education?: I choose not to answer this question Please select the resources that you would like help with: None Currently or been in a relationship where the following occur: I choose not to answer THRIVE Score: 0 JUAN J-7 AMB Questionnaire JUAN J-7 Date JUAN J - 7 assessed: 10/24/24 Source: Developed by Drs. Jimy Head, Elizabeth Lay, Christopher Donahue and colleagues, with an educational niko from [employer] Physical exam (Primary Care) Vital Signs: Last Vital Signs Temp 97.3 F 04/19/25 13:14 Pulse 72 04/19/25 13:14 BP 126/68 04/19/25 13:14 Pulse Ox 94 04/19/25 13:14 Oxygen Delivery Method Room Air 04/19/25 13:14 BMI result Body Mass Index 24.5 Tobacco/Smoking Status: Tobacco use Status Tobacco use date assessed 04/19/25 04/19/25 13:18 Patient Tobacco Use Status Never used Tobacco 04/19/25 13:18 Tobacco use type Cigarette 04/19/25 13:18 e-Cigarette/Vaping Use Never Used 04/19/25 13:18 Thrive Assessment: Date of Thrive Assessment Date Thrive assessed 01/25/25 04/19/25 13:18 Currently or been in a relationship where the following occur: I choose not to answer Const General: alert; No acute distress Eyes Conjunctivae: conjunctivae normal Resp Auscultation: clear to auscultation bilaterally Cardio Rate: regular rate Rhythm: regular rhythm GI Inspection: Yes normal to inspection Skin Full body images: 2 1. Tender on palpation and tender on lateral abduction of the left hip Extrem General: Yes normal to inspection and No edema Coding Level of Care Code Est Pt Level 4 (54502) Diagnoses Primary hypertension I10 Hypertension type: primary hypertension Hypercholesteremia E78.00 GERD (gastroesophageal reflux disease) K21.9 Benign prostatic hyperplasia with urinary frequency N40.1; R35.0 Lower urinary tract symptom presence: symptoms present Lower urinary tract symptom detail: urinary frequency Trochanteric bursitis, left hip M70.62 Assessment & Plan Assessment & Plan (1) Hypertension: Code(s): I10 - Essential (primary) hypertension Category: Medical Qualifiers: Hypertension type: primary hypertension Qualified Code(s): I10 - Essential (primary) hypertension Plan: Continue with blood pressure medication. Decrease salt intake and exercise patient is on lisinopril hydrochlorothiazide. Patient needs blood work (2) Hypercholesteremia: Code(s): E78.00 - Pure hypercholesterolemia, unspecified Category: Medical Plan: Avoid fried foods, chicken skin, eggs, butter margarine, pastries and meat. Be it pork or beef they have a lot of cholesterol LDL goal of less than 130 and triglyceride of less than 150 on atorvastatin patient needs blood work (3) GERD (gastroesophageal reflux disease): Comment: October 2024Moderate gastroesophageal reflux with sliding hiatal hernia. Code(s): K21.9 - Gastro-esophageal reflux disease without esophagitis Category: Medical Plan: Avoid the foods that causes that usually spicy foods, tomato products, juices, coffee, soda and foods that your sensitive to. After eating do not lie down, allow 3-4 hours before in lie down. And keep the head of bed above 30 degrees to avoid the acid from going up. (4) BPH (benign prostatic hyperplasia): Comment: Prostate Biopsy Dr. Liriano Benign 07/2023 Code(s): N40.0 - Benign prostatic hyperplasia without lower urinary tract symptoms Category: Medical Qualifiers: Lower urinary tract symptom presence: symptoms present Lower urinary tract symptom detail: urinary frequency Qualified Code(s): N40.1 - Benign prostatic hyperplasia with lower urinary tract symptoms; R35.0 - Frequency of micturition Plan: Continue with finasteride continue to monitor PSA (5) Trochanteric bursitis, left hip: Code(s): M70.62 - Trochanteric bursitis, left hip Category: Medical Plan: xray of the L hip requested and referral to ortho done Plan History of Present Illness The patient is a 70-year-old male presenting with a follow-up for chronic conditions including hypertension, hypercholesterolemia, benign prostatic hyperplasia, and gastroesophageal reflux disease. The patient has a history of hypertension and hypercholesterolemia, managed with lisinopril, hydrochlorothiazide, and atorvastatin. The last blood work in November revealed mild anemia with hemoglobin at 13.8 g/dL and hematocrit at 40.4%. The patient is also on finasteride 5 mg daily for benign prostatic hyperplasia, with the last prostate-specific antigen level recorded at 4.21 ng/mL. Gastroesophageal reflux disease is managed with lifestyle modifications and medication, though specific medications were not detailed in the conversation. [facility] Maintenance - Colon cancer screening last performed in 2014 Social History Review of Systems Physical Exam Results - Labs: Mild anemia with hemoglobin at 13.8 g/dL and hematocrit at 40.4% - Labs: Prostate-specific antigen level at 4.21 ng/mL Plan The patient will continue with current antihypertensive therapy, including lisinopril and hydrochlorothiazide, to manage blood pressure effectively. Cholesterol management will continue with atorvastatin, aiming for an LDL cholesterol goal of less than 130 mg/dL and triglycerides less than 150 mg/dL. For benign prostatic hyperplasia, the patient will continue finasteride therapy and regular monitoring of prostate-specific antigen levels. Gastroesophageal reflux disease management will continue with current lifestyle modifications and medications. The patient requires follow-up blood work to monitor anemia and other relevant parameters. Patient was informed and verbally consented to the use of an ambient scribe for clinic note documentation during this visit. Discussion Notes Patient Instructions Orders: Orders 2 IRON PROFILE Today I10 - Essential (primary) hypertension Ferritin Today I10 - Essential (primary) hypertension Reticulocyte Count Today I10 - Essential (primary) hypertension XR hip LT w PEL1V Today M70.62 - Trochanteric bursitis, left hip Referrals 2 Orthopedics Referral M70.62 - Trochanteric bursitis, left hip
[2025-04-19 13:14] VITALS: BP 126/68; PULSE 72; TEMP 36.3; O2SAT 94; BMI 24.5
--- OUTSIDE RECORDS SUMMARY | 2025-04-19 13:39 | XMS_ITS ---
Author Name [facility] Organization Unknown Care Team Organization Name Specialty Phone Email Start Date End [facility] Termed, PROVIDER Primary Care 07/14/202204/06
== END 2025-04-19 13:31 | disposition home or self-care (01) ==
LOC: HO.HMCH 12:54
PROVIDERS: PCP Internal Medicine; Visit Provider Internal Medicine
DX: I10 Essential (primary) hypertension (principal); E78.00 Pure hypercholesterolemia, unspecified; K21.9 Gastro-esophageal reflux disease without esophagitis; N40.1 Benign prostatic hyperplasia with lower urinary tract symptoms; R35.0 Frequency of micturition; M70.62 Trochanteric bursitis, left hip

== ENCOUNTER → 2025-04-19 12:54 | Outpatient (BNVA) | payer MEDICARE, SELFPAY | PROVIDERS: PCP Internal Medicine; Visit Provider Internal Medicine | DX: I10 Essential (primary) hypertension (principal); E78.00 Pure hypercholesterolemia, unspecified; K21.9 Gastro-esophageal reflux disease without esophagitis; N40.1 Benign prostatic hyperplasia with lower urinary tract symptoms; R35.0 Frequency of micturition; M70.62 Trochanteric bursitis, left hip | CPT/HCPCS: 99212 ==

== ENCOUNTER 2025-04-30 08:00 | Outpatient (REF) | payer MEDICARE, SELFPAY ==
--- NOTE | ~2025-04-30 | XR_ITS ---
EXAMINATION: XR HIP 1 VIEW LEFT WITH PELVIS HISTORY: M70.62 - Trochanteric bursitis, left hip COMPARISON: Comparison is made with the prior examination dated 11/04/2022. FINDINGS: A single AP view of the pelvis and two views of the left hip are submitted. Osseous mineralization is normal. There is no fracture or dislocation. There is mild joint space narrowing. The soft tissues are unremarkable. XR/XR hip LT w PEL1V IMPRESSION: Mild joint space narrowing. Electronically signed by: Jimy Paris MD 04/30/2025 09:16 AM EDT
[2025-04-30 10:15] LABS: MANUAL DIFF FLAG NO
[2025-04-30 10:36] LABS: Hematocrit 41.4 % (42.0-52.0); Hemoglobin 13.6 g/dl (14.0-18.0); Imm Gran Abs Auto 0.01 X10*3/uL (0.00-0.03); Imm Gran Pct Auto 0.2 % (0.0-0.4); Lymphocytes Absolute Auto 2.0 X10*3/uL (1.2-4.9); Mean Corpuscular HGB Conc 32.9 g/dl (31.0-36.0); Mean Corpuscular Hemoglobin 29.5 pg (27.0-33.0); Mean Corpuscular Volume 89.8 fL (80.0-98.0); NRBC Abs Auto 0.000 X10*3/uL (0.0-0.012); NRBC Pct Auto 0.0 /100WBC (0.0-0.2); Platelet Count 304 X10*3/uL (160-400); Red Blood Count 4.61 X10*6/uL (4.60-5.80); Reticulocytes Absolute 0.048 X10*6/uL (0.026-0.095); White Blood Count 6.0 X10*3/uL (4.8-10.8)
[2025-04-30 11:00] LABS: Alanine Aminotransferase 42 U/L (0-40); Albumin Level 4.6 g/dL (3.5-5.0); Alkaline Phosphatase 71 U/L (39-117); Anion Gap 12 (12-20); Aspartate Amino Transferase 32 U/L (5-37); Blood Urea Nitrogen 23 mg/dL (9-16); Calcium 9.3 mg/dL (8.4-10.2); Carbon Dioxide 28 mmol/L (22-29); Chloride 106 mmol/L (96-108); Cholesterol 164 mg/dL (<200); Estimated Glomerular Filt Rate 58; HDL Cholesterol 48 mg/dL (>40); Iron 110 mcg/dL (45-160); Percent Iron Saturation 43 % (15-50); Potassium 4.1 mmol/L (3.3-5.1); Sodium 142 mmol/L (135-145); Total Iron Binding Capacity 255 mcg/dL (228-428); Total Protein 7.0 g/dL (6.5-8.0); Triglycerides 99 mg/dL (<150); Unsaturated Iron Binding 145 ug/dL
[2025-04-30 11:22] LABS: Ferritin 108 ng/mL (20-250); Free T4 (Free Thyroxine) 0.98 ng/dL (0.71-1.85); Thyroid Stimulating Hormone 1.70 uIU/mL (0.32-4.0)
[2025-04-30 11:26] LABS: Folate 12.4 ng/mL (> or = 4.0); Prostate Specific Antigen 7.93 ng/mL (<0.05-4.0); Vitamin B12 263 pg/mL (200-900)
== END 2025-04-30 08:01 | disposition home or self-care (01) ==
LOC: HO.HMGCX 08:00
PROVIDERS: PCP Internal Medicine; Visit Provider Internal Medicine
DX: Z12.5 Encounter for screening for malignant neoplasm of prostate (principal); I10 Essential (primary) hypertension; N40.1 Benign prostatic hyperplasia with lower urinary tract symptoms; R35.0 Frequency of micturition; E78.00 Pure hypercholesterolemia, unspecified; M70.62 Trochanteric bursitis, left hip; M70.22 Olecranon bursitis, left elbow
CPT/HCPCS: 36415; 73502; 80053; 80061; 82607; 82728; 82746; 83540; 84153; 84439; 84443; 85025; 85045

== ENCOUNTER → 2025-04-30 08:34 | Outpatient (BNV) | payer MEDICARE, SELFPAY | PROVIDERS: PCP Internal Medicine; Visit Provider Radiology Diagnostic Radiology | DX: M70.62 Trochanteric bursitis, left hip (principal) | CPT/HCPCS: 73502 ==

== ENCOUNTER 2025-05-15 15:46 | Outpatient (AMB) | payer MEDICARE, SELFPAY ==
--- NOTE | 2025-05-15 15:55 | MHC.PC.OV ---
Vital Signs 05/15/25 15:56 Height 5 ft 9 in Weight 169 lb BMI 25.0 BP 126/72 Blood Pressure Location Lt brachial Position Sitting Respiration 18 Pulse 82 Pulse Source Pulse Oximeter Temp 97.1 F Temp Source Temporal Artery Scan Pulse Oximetry (%) 97 Oxygen Delivery Method Room Air Intake Visit Reasons: Left hip and leg pain [place] Required: No Accompanied by: Self / Same As Patient Allergies No Known Allergies Allergy (Verified 05/15/25 15:57) Tobacco use date assessed: 05/15/25 Fall risk assessment: No Falls in past year Last assessed Fall Risk: 05/15/25 Dental Screening Dental Screen Date: 05/15/25 Did you have a dental visit in the last 12 months?: Yes Did you have a dental problem in the last 6 months where you did not have access to dental care?: No Was dental information given to patient?: Patient has dentist REPLACED BY [facility] Medical History Wheezing Trigger finger, right middle finger Viral upper respiratory illness Urinary urgency Depression Neck pain with history of cervical spinal surgery Surgical History Hx of tonsillectomy S/P right knee arthroscopy History of cholecystectomy Family History Mother Breast cancer, Onset Age: 45 Asthma Father Type 1 diabetes Kidney transplanted HTN (hypertension) Sister Depression Mental health disorder Maternal Grandmother Pancreatic cancer Maternal Aunt Pancreatic cancer Paternal Grandfather Type 2 diabetes Paternal Uncle Type 2 diabetes Social History Household Members: Spouse Housing: House Are you a primary home care administrator to a significant other at home: No Do you presently have visiting nurse or other home services: No 75 years or older and lives alone: No Alcohol intake: current Alcohol intake frequency: other Comment: 2 days a week 1-2 drinks Patient Tobacco Use Status: Never used Tobacco Tobacco use type: Cigarette e-Cigarette/Vaping Use: Never Used Second Hand Smoke Exposure: No service: No Current occupational status: retired Current occupation: rt hand Cognitive needs: No Hearing needs: No Vision needs: Yes (glasses ) Questionnaire PHQ-9 Over the last 2 weeks, how often have you been bothered by any of the following problems? 1. Little interest or pleasure in doing things: not at all 2. Feeling down, depressed, or hopeless: not at all 3. Trouble falling or staying asleep, or sleeping too much: not at all 4. Feeling tired or having little energy: several days 5. Poor appetite or overeating: not at all 6. Feeling bad about yourself - or that you are a failure or have let yourself or your family down: not at all 7. Trouble concentrating on things, such as reading the newspaper or watching television: not at all 8. Moving or speaking so slowly that other people could have noticed. Or the opposite - being so fidgety or restless that you have been moving around a lot more than usual: not at all 9. Thoughts that you would be better off or of hurting yourself in some way: not at all Total score: 1 Depression Screening Interpretation: Positive Depression Screening Done: Yes Source: Developed by Drs. Jimy Head, Elizabeth Lay, Christopher Donahue and colleagues, with an educational niko from [employer]. Thrive Questionnaire Date Thrive assessed: 05/15/25 I am a: Patient What is your living situation today?: I have a steady place to live Within the past 12 months, did the food you bought not last and you didn't have the money to get more?: I choose not to answer this question Within the past 12 months, did you worry whether your food would run out before you got money to buy more?: I choose not to answer this question Do you have trouble paying for medicines?: I choose not to answer this question Do you have trouble getting transportation to medical appointments?: I choose not to answer this question Do you have trouble paying your heating and electricity bill?: I choose not to answer this question Do you have trouble taking care of your child, family member or friend?: I choose not to answer this question Do you have trouble with day-to-day activities such as bathing, preparing meals, shopping, managing finances, etc.?: I choose not to answer this question Are you currently unemployed and looking for a job?: I choose not to answer this question Are you interested in more education?: I choose not to answer this question Please select the resources that you would like help with: None Currently or been in a relationship where the following occur: I choose not to answer THRIVE Score: 0 AUDIT C Alcohol Use Questionnaire (AUDIT-C) 1. How often do you have a drink containing alcohol?: 2-4 times a month 2. How many drinks containing alcohol do you have on a typical day when you are drinking?: 1 or 2 3. How often do you have six or more drinks on one occasion?: Never Total Score: 2 JUAN J-7 AMB Questionnaire JUAN J-7 Date JUAN J - 7 assessed: 05/15/25 Feeling nervous, anxious, or on edge: 0 = Not at all Not being able to stop or control worryin = Not at all Worrying too much about different things: 0 = Not at all Trouble relaxin = Not at all Being so restless that it is hard to sit still: 0 = Not at all Becoming easily annoyed or irritable: 0 = Not at all Feeling afraid as if something awful might happen: 0 = Not at all Total JUAN J-7 score (0-4 normal; 5-9 mild; 10-14 moderate; 15-21 severe): 0 Source: Developed by Drs. Jimy Head, Elizabeth Lay, Christopher Donahue and colleagues, with an educational niok from [employer]. Physical exam (Primary Care) Vital Signs: Last Vital Signs Temp 97.1 F 05/15/25 15:56 Pulse 82 05/15/25 15:56 Resp 18 05/15/25 15:56 BP 126/72 05/15/25 15:56 Pulse Ox 97 05/15/25 15:56 Oxygen Delivery Method Room Air 05/15/25 15:56 BMI result Body Mass Index 25.0 Tobacco/Smoking Status: Tobacco use Status Tobacco use date assessed 05/15/25 05/15/25 16:02 Patient Tobacco Use Status Never used Tobacco 05/15/25 16:02 Tobacco use type Cigarette 05/15/25 16:02 e-Cigarette/Vaping Use Never Used 05/15/25 16:02 PHQ-9: PHQ-9 Score PHQ-9: Total score 1 05/15/25 16:02 Depression Screening Interpretation: Positive Thrive Assessment: Date of Thrive Assessment Date Thrive assessed 05/15/25 05/15/25 16:02 Currently or been in a relationship where the following occur: I choose not to answer Const General: alert; No acute distress Eyes Conjunctivae: conjunctivae normal Resp Auscultation: clear to auscultation bilaterally Cardio Rate: regular rate Rhythm: regular rhythm GI Inspection: Yes normal to inspection Neuro Other: Negative straight leg raise, bilateral foot can dorsiflex DTR +1 on the left, +2 on the right, mild tenderness on the lumbar palpation. Extrem General: Yes normal to inspection and No edema Coding Level of Care Code Est Pt Level 3 (96984) Diagnoses Left hip pain M25.552 Lumbar back pain with radiculopathy affecting left lower extremity M54.16 Achilles tendinitis of left lower extremity M76.62 Assessment & Plan Assessment & Plan (1) Left hip pain: Code(s): M25.552 - Pain in left hip Category: Medical Plan: resolved (2) Lumbar back pain with radiculopathy affecting left lower extremity: Code(s): M54.16 - Radiculopathy, lumbar region Category: Medical Plan: Discussed with the patient physical therapy as well as patient has been referred to orthopedics also. MRI requested . (3) Achilles tendinitis of left lower extremity: Code(s): M76.62 - Achilles tendinitis, left leg Category: Medical Plan: Discussed about Voltaren gel to help, heat does help also. Plan History of Present Illness The patient is a 70-year-old male presenting with left hip pain and Achilles tendon pain. The left hip pain is associated with mild joint space narrowing due to osteoarthritis, with symptoms exacerbated by standing and certain movements. Lumbar pain is also present, with mild right lateral spondylosis noted on x-rays. Physical examination reveals mild tenderness on lumbar palpation, but negative straight leg raise tests. The Achilles tendon pain started after physical exertion, with the patient observing a bulge and stiffness, suggestive of inflammation. Health Maintenance Social History Review of Systems - Musculoskeletal: Reports left hip pain with tingling sensation extending down the leg. Denies persistent hip pain. - Neurological: Reports tingling and buzzing sensation in the left leg. Denies persistent numbness. - Musculoskeletal: Reports Achilles tendon pain with bulge and stiffness. Denies trauma to the area. Physical Exam - Musculoskeletal: Negative straight leg raise test bilaterally - Neurological: Deep tendon reflexes +1 on the left, +2 on the right - Musculoskeletal: Mild tenderness on lumbar palpation Results - Imaging: X-rays of the left hip show mild joint space narrowing indicative of osteoarthritis. - Imaging: X-rays of the lumbar spine show mild right lateral spondylosis. Plan Patient was informed and verbally consented to the use of an ambient scribe for clinic note documentation during this visit. 1. Osteoarthritis Of The Left Hip The plan includes a request for an MRI to further evaluate the nerve involvement, although insurance may require physical therapy first. The patient is scheduled for a consultation with an orthopedist and will begin physical therapy. 2. Lumbar Spondylosis The patient will undergo physical therapy to address lumbar spondylosis, with an MRI requested to assess the lumbar spine. 3. Achilles Tendon Pain The patient is advised to use [id number] Voltaren gel to reduce inflammation and to rest the tendon while maintaining some movement. Discussion Notes I discussed with the patient the potential need for an MRI to evaluate nerve involvement, but noted that insurance might require physical therapy first. We also talked about the use of Voltaren gel for Achilles tendon pain and the importance of maintaining some movement while resting the tendon. Patient Instructions - Use Voltaren gel on the Achilles tendon three times a day to reduce inflammation. - Attend scheduled physical therapy sessions. - Follow up with the orthopedist as scheduled. Orders: Orders MR lumbar spine wo con Today M54.16 - Radiculopathy, lumbar region PT Evaluation and Treatment Today M54.16 - Radiculopathy, lumbar region
[2025-05-15 15:56] VITALS: BP 126/72; PULSE 82; RESP 18; TEMP 36.2; O2SAT 97; BMI 25.0
== END 2025-05-15 17:45 | disposition home or self-care (01) ==
LOC: HO.HMCH 15:46
PROVIDERS: PCP Internal Medicine; Visit Provider Internal Medicine
DX: M25.552 Pain in left hip (principal); M54.16 Radiculopathy, lumbar region; M76.62 Achilles tendinitis, left leg

== ENCOUNTER → 2025-05-15 15:46 | Outpatient (BNVA) | payer MEDICARE, SELFPAY | PROVIDERS: PCP Internal Medicine; Visit Provider Internal Medicine | DX: M25.552 Pain in left hip (principal); M76.62 Achilles tendinitis, left leg; M54.16 Radiculopathy, lumbar region | CPT/HCPCS: 99212 ==

== ENCOUNTER 2025-05-26 11:03 | Outpatient (REF) | payer MEDICARE, SELFPAY ==
--- NOTE | ~2025-05-26 | MR_ITS ---
CLINICAL HISTORY: M54.16 - Radiculopathy, lumbar region MR lumbar spine without gadolinium Comparison: CR/SR - XR LUMBAR SPINE 2-3 VIEWS - 11/10/24 10:58 EST Findings: No scoliosis or spondylolisthesis. No acute fracture or pathologic bone lesion. Cauda equina and conus medullaris within normal limits. Disc desiccation is seen at all levels in the lumbar spine. At T12-L1 there is no significant annular bulge or focal disc herniation. The foramina are patent. At L1-L2 there is a minimal annular bulge. No neural foraminal narrowing is noted. At L2-L3 there is a mild annular bulge associated with mild bilateral neural foraminal narrowing. There is no definite evidence of nerve root impingement. At L3-L4 there is a large annular bulge flattening the dural sac and encroaching upon the bilateral neural foramina. At L4-L5 there is a large diffuse annular bulge deforming the dural sac and encroaching upon the bilateral neural foramina. On the left there is a superimposed disc protrusion/extrusion filling the left neural foramen and compressing the left L5 nerve root. There is also facet arthropathy at this level as well as ligamentum flavum hypertrophy and moderate central spinal stenosis. At L5-S1 there is a mild annular bulge. The neural foramina are patent. The paraspinal soft tissues are normal. The visualized abdominal and pelvic contents are unremarkable. There is a small hemangioma seen at T11. IMPRESSION: 1. Large annular bulge at L3-L4 flattening the dural sac and encroaching upon the bilateral neural foramina. 2. Large diffuse annular bulge at L4-L5 deforming the dural sac and encroaching upon the bilateral neural foramina. There is moderate central spinal stenosis. On the left there is a superimposed disc protrusion/ extrusion filling the left neural foramen 3. Minimal to mild annular bulges at L1-L2, L2-L3 and L5-S1. This document has been electronically signed by: Facundo Gill MD on 05/28/2025 12:53:07
== END 2025-05-26 11:04 | disposition home or self-care (01) ==
LOC: HO.MRI 11:03
PROVIDERS: PCP Internal Medicine; Visit Provider Internal Medicine
DX: M54.16 Radiculopathy, lumbar region (principal)
CPT/HCPCS: 72148

== ENCOUNTER 2025-06-01 12:37 | Outpatient (AMB) | payer MEDICARE, SELFPAY ==
--- NOTE | 2025-06-01 13:00 | A.SPINEOV_ITS ---
Vital Signs 06/01/25 13:01 Height 5 ft 9 in Weight 167 lb BMI 24.7 Intake Visit Reasons: LBP Intake Note: Mr. Goncalves is here today c/o low back pain. Medic Technician Required: No Allergies No Known Allergies Allergy (Verified 06/01/25 13:01) Physical Exam Vital Signs: BMI result Body Mass Index 24.7 Assessment & Plan Assessment & Plan (1) Lumbar disc herniation: Code(s): M51.26 - Other intervertebral disc displacement, lumbar region Category: Medical Plan Dear dR Maddox, Thank you for referring Mrs Goncalves to our office today. This is a very nice 70-year-old male who has previous history of anterior cervical fusion, who presents with 2 months of progressive left leg symptoms. It started without any specific provocative event. He developed left-sided low back pain that will wrap around and occasionally go into his knee, we will give him tingling in his foot. It generally occurs when he is either getting up from a seated position, getting out of a car etc.. He is still able to play golf, it does not interfere with his sleep. He has had a similar event in the years past. At that time the pain was so intense he had to sleep on a big exercise ball just to flexes spine so we could get some relief, and had to lie flat on a floor during office meetings just to get through things. This is similar pain but not nearly as intense. He has an MRI done at [facility] showing degenerative disc disease with herniated disc at L4-5. PMH: Hypertension, BPH, borderline high cholesterol, left knee scope, cholecystectomy and anterior cervical fusion. Denies any systemic cardiopulmonary, liver, kidney disease. No history of bleeding disorders, blood clots, cancer etc.. Social hx: Does not smoke, drink use any recreational drugs Medications: Lisinopril, atorvastatin and finasteride Allergies: None Physical exam: Strength, gait, reflexes all normal Imaging review: Lumbar MRI done at [facility] reveals [id number] degenerative disc disease at L3-4 and L4-5. At L3-4 there is broad-based diffuse disc bulging but no overt nerve compression. At L4-5 there is left-sided disc bulge which is herniated into the left L4 foramen causing severe compression of the left L4 nerve root. Impression: 70-year-old male presents with what sounds like symptoms from the left L4-5 disc herniation into the foramen with low back pain, pain that will intermittently go into his knee as well as tingling going down his leg. Right now the symptoms are not debilitating and there is a good chance this disc herniation will go away on its own. I am going to send him to physical therapy. In fact you have already placed an order for that so I printed it up for him and he is going to take that to a physical therapist where he lives and undergo treatment. I expect this will continue to get better with time. If it does not, or escalates over time, I showed the films to Dr. Gomez and he thinks we could do an endoscopic left L4-5 far lateral diskectomy in that should offer significant relief of the symptoms. Thank you for allowing us to care for your patient. The total time spent with this visit with this patient was 45 minutes reviewing history, physical exam, lumbar imaging review, and implementation of treatment plan or further diagnostic testing Jim Gomez MD,PhD [facility] Coding Level of Care Code New Pt Level 4 (13758) Diagnoses Lumbar disc herniation M51.26
[2025-06-01 13:01] VITALS: BMI 24.7
== END 2025-06-01 14:45 | disposition home or self-care (01) ==
LOC: HO.HNS 12:38
PROVIDERS: PCP Internal Medicine; Referring Provider Internal Medicine; Visit Provider Physician Assistant
DX: M51.26 Other intervertebral disc displacement, lumbar region (principal)
CPT/HCPCS: 99204

== ENCOUNTER → 2025-06-01 12:37 | Outpatient (BNVA) | payer MEDICARE, SELFPAY | PROVIDERS: PCP Internal Medicine; Referring Provider Internal Medicine; Visit Provider Physician Assistant | DX: M51.26 Other intervertebral disc displacement, lumbar region (principal) | CPT/HCPCS: 99202 ==

== ENCOUNTER 2025-06-11 08:30 | Outpatient (REF) | payer MEDICARE, SELFPAY ==
[2025-06-11 11:29] LABS: Alanine Aminotransferase 30 U/L (0-40); Albumin Level 4.7 g/dL (3.5-5.0); Alkaline Phosphatase 73 U/L (39-117); Aspartate Amino Transferase 27 U/L (5-37); Total Protein 7.2 g/dL (6.5-8.0)
[2025-06-11 11:53] LABS: HBS Num1 0.21 mIU/mL (0-7.99); HBc Num1 0.13 S/CO (0.00-0.79); HBsAGNum1 0.29 S/CO (0.00-0.99); Hepatitis B Surface Antigen Negative (Negative); ~HepC Num1 0.09 S/CO (0.00-0.79); ~Hepatitis B Surface Antibody NONREACTIVE (Nonreactive); ~Hepatitis C Antibody Nonreactive (Nonreactive)
== END 2025-06-11 08:31 | disposition home or self-care (01) ==
LOC: HO.HMGCLDS 08:30
PROVIDERS: PCP Internal Medicine; Visit Provider Internal Medicine
DX: R79.89 Other specified abnormal findings of blood chemistry (principal)
CPT/HCPCS: 36415; 80076; 86704; 86706; 86803; 87340

== ENCOUNTER 2025-06-14 08:19 | Outpatient (AMB) | payer MEDICARE, SELFPAY ==
--- NOTE | 2025-06-14 08:41 | A.OFFVIS_ITS ---
Intake Visit Reasons: 6m/PSA Intake Note: patient presents today for: 6mo/PSA urology medications: finasteride blood thinners: none labs done 04/30/25: PSA 7.93 today's PVR: 149mls Entry Level Receptionist Required: No Accompanied by: Self / Same As Patient Allergies No Known Allergies Allergy (Verified 06/14/25 08:46) HPI Comments Details: Jim is a pleasant 70-year-old male patient of Dr. Maddox. He has a past medical history of depression, neck pain with a history of cervical spinal surgery, and elevated PSA. He presents to the office today for follow-up of his elevated PSA. In discussion with the patient today reports to be doing and feeling well. He denies having had any bothersome urinary issues or concerns since his last office visit. He reports compliance with finasteride as prescribed. Recent PSA results reviewed with the patient today as noted and trended below. Previous workup has included a MRI of the prostate 02/27 that noted the bladder and urethral are unremarkable. No inguinal adenopathy. No suspicious prostate lesion identified. Patient with a history of negative prostate biopsy 07/[address] Duran noted benign with scattered foci of acute and chronic inflammation throughout. He denies any bothersome urinary issues or concerns. 11/26 14.5, 05/29 6.8 % free PSA 27%, 03/28 10.3, 01/27 15.0, 04/29 12, 08/29 15.2, 12/29 4.2, 04/30 7.9 Discussed variability in PSA. On transrectal ultrasound estimated volume of prostate was approximately 77 mL. He does report noting urinary urgency he otherwise denies urinary frequency, incontinence, nocturia, hematuria, dysuria, foul smelling urine, changes to urinary stream, flank pain, fever, and or chills. We discussed potential causes of variability in PSA as well as further treatment options and risks and benefits of these treatment options. We will continue with close surveillance monitoring. He is happy with his current voiding parameters. He otherwise offers no other issues or concerns at this time. [facility] Medical History Wheezing Trigger finger, right middle finger Viral upper respiratory illness Urinary urgency Depression Neck pain with history of cervical spinal surgery Surgical History Hx of tonsillectomy S/P right knee arthroscopy History of cholecystectomy Family History Mother Breast cancer, Onset Age: 45 Asthma Father Type 1 diabetes Kidney transplanted HTN (hypertension) Sister Depression Mental health disorder Maternal Grandmother Pancreatic cancer Maternal Aunt Pancreatic cancer Paternal Grandfather Type 2 diabetes Paternal Uncle Type 2 diabetes Social History Household Members: Spouse Housing: House Are you a primary nursing care partner to a significant other at home: No Do you presently have visiting nurse or other home services: No 75 years or older and lives alone: No Alcohol intake: current Alcohol intake frequency: other Comment: 2 days a week 1-2 drinks Patient Tobacco Use Status: Never used Tobacco Tobacco use type: Cigarette e-Cigarette/Vaping Use: Never Used Second Hand Smoke Exposure: No service: No Current occupational status: retired Current occupation: rt hand Cognitive needs: No Hearing needs: No Vision needs: Yes (glasses ) Review of Systems Const All systems reviewed & are unremarkable except as noted in HPI and below Physical Exam Const General: cooperative, healthy appearing, comfortable, no acute distress, well developed and alert Nutritional Appearance: average body habitus Orientation/consciousness: patient oriented x3 Limitations: no limitations HEENT Head: Yes normal to inspection, Yes normocephalic and Yes atraumatic Ears: hearing grossly normal bilaterally Eyes General: appearance normal, both eyes and all related structures Neck Neck: Yes normal visual inspection and Yes trachea midline Chest Chest palpation & inspection: normal inspection of the chest Resp Effort & Inspection: normal respiratory effort and able to speak in complete sentences Cardio Rate: regular rate GI Inspection: Yes normal to inspection General: Yes no CVA tenderness Back/Spine/Pelvis Back: no CVA tenderness Skin General skin exam: no rashes or lesions noted Neuro General: patient oriented x3 Extrem General: Yes normal to inspection Psych Appearance: grossly normal and well kempt Mental Status: mental status grossly normal Speech and movement: Clear speech present Affect: normal affect Attitude: cooperative Thought process: Normal thought process present Thought content: Normal thought content present Insight: Fair insight present (Psych) Judgement: Fair judgement present (Psych) Office Procedures Post Void Residual Post Residual Void Post Void Residual (PVR): 149 [id number] Void Residual by ultrasound Results AMB Urinalysis, Automated UA Leukoctes 0 Kendall/uL Last Edit by RELL Gomez on 06/14/25 08:55 UA Nitrite Last Edit by RELL Gomez on 06/14/25 08:55 UA Urobilinogen 0.2 mg/dL Last Edit by RELL Gomez on 06/14/25 08:5 5 UA Protein 0 mg/dL Last Edit by RELL Gomze on 06/14/25 08:55 UA pH 6.0 Last Edit by RELL Gomez on 06/14/25 08:55 UA Blood 10 Jigar/uL Last Edit by RELL Gomez on 06/14/25 08:55 UA Specific [place] 1.010 Last Edit by RELL Gomez on 06/14/25 08: 55 UA Ketone Last Edit by RELL Gomez on 06/14/25 08:55 UA Bilirubin 0 mg/dL Last Edit by RELL Gomez on 06/14/25 08:55 UA Glucose 0 mg/dL Last Edit by RELL Gomez on 06/14/25 08:55 Results Reviewed Results Reviewed: Laboratory Last Values Urine pH (Auto) 6.0 06/14/25 08:54 Specific [place] (Auto) 1.010 06/14/25 08:54 Urine Protein (Auto) 0 mg/dL 06/14/25 08:54 Glucose (UA)(Auto) 0 mg/dL 06/14/25 08:54 Urine Blood (Auto) 10 Jigar/uL 06/14/25 08:54 Urine Bilirubin (Auto) 0 mg/dL 06/14/25 08:54 Urine Urobilinogen (Auto) 0.2 mg/dL 06/14/25 08:54 Leukocyte Esterase (Auto) 0 Kendall/uL 06/14/25 08:54 Assessment & Plan Assessment & Plan (1) BPH (benign prostatic hyperplasia): Comment: Prostate Biopsy Dr. Heir Ronquillo 07/2023 Code(s): N40.0 - Benign prostatic hyperplasia without lower urinary tract symptoms Category: Medical Qualifiers: Lower urinary tract symptom presence: symptoms present Lower urinary tract symptom detail: urinary frequency Qualified Code(s): N40.1 - Benign prostatic hyperplasia with lower urinary tract symptoms; R35.0 - Frequency of micturition (2) Elevated PSA: Code(s): R97.20 - Elevated prostate specific antigen [PSA] Category: Medical (3) Prostate enlargement: Comment: transrectal biopsy Dr. Gold scruggs 07/2023 Code(s): N40.0 - Benign prostatic hyperplasia without lower urinary tract symptoms Category: Medical Plan In office urinalysis results reviewed with the patient today; as noted above. Recent PSA results reviewed with the patient today; as noted above. He reports be happy with current voiding parameters. We discussed variability in PSA as well as further treatment options and risks and benefits of these treatment options. We discussed continuation of surveillance monitoring and importance of adherence to medications as prescribed. Continue finasteride Will obtain PSA in 4 months. Follow-up in 4 months with PSA prior; or sooner with any issues, concerns, and or questions. Orders: Orders PSA,Total (Free>4and<10) 4 Months R97.20 - Elevated prostate specific antigen [PSA] AMB Post Void Residual by ultrasound Today N40.1 - Benign prostatic hyperplasia with lower urinary tract symptoms, R35.0 - Frequency of micturition AMB Urinalysis Automated Today Z13.9 - Encounter for screening, unspecified Patient Instructions: The patient had an opportunity to ask questions regarding the treatment plan. All questions were answered. Physical exam, labs, and imaging were discussed and reviewed in detail. As well as risks, benefits, and discussion of treatment choices. No major barriers to understanding were identified. The patient expressed understanding and agreement with the above treatment plan. The patient was made aware they should contact our office by phone for worsening of their current condition, the appearance of new symptoms, or with any questions or concerns. Compliance is encouraged with any medications and follow up testing that is ordered. It is a privilege to be allowed the opportunity to participate in? your urological care.? Again, if you have any questions or concerns If you have any questions or concerns please do not hesitate to contact me. The office is [phone]. This note is constructed using voice recognition software. While every effort has been made to ensure accuracy engineering clerk errors may have been included. Yours sincerely, CARLOZ Nichols Coding Level of Care Code Est Pt Level 3 (23784) Complex EM visit Add On G2211 Diagnoses Benign prostatic hyperplasia with urinary frequency N40.1; R35.0 Lower urinary tract symptom presence: symptoms present Lower urinary tract symptom detail: urinary frequency Elevated PSA R97.20 Prostate enlargement N40.0 CPT Codes Post Residual Void - PVR CPT Code: 43651-Gqth Void Residual by ultrasound ([id number])
== END 2025-06-14 09:23 | disposition home or self-care (01) ==
LOC: HO.HUSH 08:20
PROVIDERS: PCP Internal Medicine; Visit Provider Nurse Practitioner Family
DX: N40.1 Benign prostatic hyperplasia with lower urinary tract symptoms (principal); R35.0 Frequency of micturition; R97.20 Elevated prostate specific antigen [PSA]; N40.0 Benign prostatic hyperplasia without lower urinary tract symptoms; Z13.9 Encounter for screening, unspecified
CPT/HCPCS: 99213; G2211

== ENCOUNTER → 2025-06-14 08:19 | Outpatient (BNVA) | payer MEDICARE, SELFPAY | PROVIDERS: PCP Internal Medicine; Visit Provider Nurse Practitioner Family | DX: N40.1 Benign prostatic hyperplasia with lower urinary tract symptoms (principal); R35.0 Frequency of micturition; R97.20 Elevated prostate specific antigen [PSA]; N40.0 Benign prostatic hyperplasia without lower urinary tract symptoms | CPT/HCPCS: 51798; 81003; 99212 ==

== ENCOUNTER 2025-06-25 08:04 | Outpatient (REF) | payer MEDICARE, SELFPAY ==
--- NOTE | ~2025-06-25 | US_ITS ---
CLINICAL HISTORY: R79.89 - Other specified abnormal findings of blood chemistry US abdomen complete Comparison: None provided Findings: Examination is limited by bowel gas. The visualized pancreas, aorta and IVC are unremarkable. The liver is normal in size with diffuse increase of echogenicity. There is no intrahepatic bile duct dilatation. The common duct is 4.0 mm in diameter. Cholecystectomy. The main portal vein is antegrade. The right kidney is 10.5 cm in length. 6 mm cyst. The left kidney is 12.5 cm in length. The spleen is normal. No ascites. 4.6 x 4 x 4 cm right upper quadrant mass with vascularity. IMPRESSION: Right upper quadrant mass could be in the liver or adrenal gland. Further evaluation by contrast CT is recommended. Hepatic steatosis. This document has been electronically signed by: Kym Roberts MD on 06/26/2025 13:31:10
== END 2025-06-25 08:05 | disposition home or self-care (01) ==
LOC: HO.US 08:04
PROVIDERS: PCP Internal Medicine; Visit Provider Internal Medicine
DX: R79.89 Other specified abnormal findings of blood chemistry (principal)
CPT/HCPCS: 76700

== ENCOUNTER → 2025-06-25 08:05 | Outpatient (BNV) | payer MEDICARE, SELFPAY | PROVIDERS: PCP Internal Medicine; Visit Provider Nuclear Medicine | DX: K76.0 Fatty (change of) liver, not elsewhere classified (principal) | CPT/HCPCS: 76700 ==

== ENCOUNTER 2025-07-16 07:37 | Outpatient (REF) | payer MEDICARE, SELFPAY ==
--- NOTE | ~2025-07-16 | CT_ITS ---
EXAMINATION: CT ABDOMEN AND PELVIS WITH CONTRAST CLINICAL INFORMATION: R 19.01. Right upper quadrant abdominal swelling, mass, lump. COMPARISON: Correlated to ultrasound dated June 25, 2025 TECHNIQUE: Multidetector volumetric images were obtained from the superior aspect of the liver through the pubic symphysis following administration 85 mL of Omnipaque 350 intravenous contrast. Sagittal and coronal reformatted images were obtained on the technologist's workstation. Oral contrast: Yes This CT examination was performed using dose optimization techniques as appropriate, variously including the following: *Automated exposure control *Adjustment of mA and/or kV according to patient size (this includes techniques or standardized protocols for targeted exams where dose is matched to indication/reason for exam; i.e. extremities or head) *Use of iterative reconstruction technique DLP: 404 mGy-cm FINDINGS: LUNG BASES: No acute airspace disease. There is a subtle pulmonary mosaic pattern. LIVER, GALLBLADDER, AND BILIARY TREE: Liver measures 15 cm. No focal enhancing mass. Subcentimeter hypodensity right hepatic lobe too small to be fully characterized. Probable focal fatty infiltration adjacent to the gallbladder fossa. Hepatic veins, intrahepatic portion of the IVC and main portal veins are patent. Status post cholecystectomy. No intrahepatic or extrahepatic biliary ductal dilatation. PANCREAS: No solid or cystic mass. No main pancreatic ductal dilatation. No peripancreatic fluid collection. Punctate calcification, body tail junction. SPLEEN: 7 cm. No solid or cystic mass. ADRENAL GLANDS: No nodular lesions. KIDNEYS AND URETERS: No renal mass. No hydronephrosis. No gross nephrolithiasis. Subcentimeter cysts, right kidney. Normal enhancement pattern of the renal parenchyma. The ureters are not enlarged. BLADDER: Fluid-filled. GASTROINTESTINAL TRACT: Abundant stool, large intestine. No intestinal obstruction pattern. No intestinal wall thickening. Appendix is normal. No pneumatosis intestinalis. No ascites. No pneumoperitoneum. Diverticular, left hemicolon. ABDOMINAL WALL: Diastases abdominal rectus muscles in the periumbilical region. No gross hernia. LYMPH NODES: No mesenteric or retroperitoneal lymphadenopathy. VASCULAR: Mixed plaques throughout the abdominal aorta wall and iliac arteries without aneurysm or dissection. Calcified plaques in the femoral arteries and descending thoracic aorta.. PELVIC VISCERA: 6 cm heterogeneous the prominent prostate gland protruding upon the urinary bladder floor. OSSEOUS STRUCTURES: Multilevel thoracolumbar spondylosis. Degenerative changes in the sacroiliac joints and coxofemoral joints. Osteopenia versus osteoporosis. Desiccation seen in the left gluteal region. CT/CT abdomen pelvis w IV con IMPRESSION: Nonspecific subcentimeter hypodensities/cystic lesion, right hepatic lobe. Subcentimeter cysts, right kidney. Diverticular disease, left hemicolon. Probable benign prostate hyperplasia Multilevel spondylosis. Fleischner guidelines were followed. Electronically signed by: Wili Santana MD 07/16/2025 10:45 AM LORELEI
[2025-07-16] MEDS: Barium Sulfate Oral (Vanilla) 450 ML ORAL.SUSP 900 ML PO (10:07)
[2025-07-16] MEDS: iohexoL 350 MG/ML 100 ML INFUS..BTL IV (10:08)
[2025-07-16 11:16] LABS: Creatinine POC 1.0 mg/dL (0.5-1.4); GFR POC > 60
== END 2025-07-16 07:38 | disposition home or self-care (01) ==
LOC: HO.CT 07:37
PROVIDERS: PCP Internal Medicine; Visit Provider Internal Medicine
DX: R19.01 Right upper quadrant abdominal swelling, mass and lump (principal)
CPT/HCPCS: 74177; 82565; Q9967

== ENCOUNTER → 2025-07-16 07:38 | Outpatient (BNV) | payer MEDICARE, SELFPAY | PROVIDERS: PCP Internal Medicine; Visit Provider Radiology Diagnostic Radiology | DX: R19.01 Right upper quadrant abdominal swelling, mass and lump (principal) | CPT/HCPCS: 74177 ==

== ENCOUNTER 2025-07-24 10:06 | Outpatient (AMB) | payer MEDICARE, SELFPAY ==
--- NOTE | 2025-07-24 10:17 | A.OFFVIS_ITS ---
Intake Vital Signs 07/24/25 10:18 Height 5 ft 9 in Weight 169 lb 8 oz BMI 25.0 BP 132/86 Blood Pressure Location Lt brachial Position Sitting Pulse 74 Pulse Source Pulse Oximeter Temp 97.5 F Temp Source Temporal Artery Scan Pulse Oximetry (%) 96 Oxygen Delivery Method Room Air Intake Visit Reasons: AWV Allergies No Known Allergies Allergy (Verified 07/24/25 10:20) Medication List - Last Reconciled 07/24/25 by Refugio Maddox MD atorvastatin 20 mg PO DAILY finasteride 5 mg PO DAILY 90 days lisinopril-hydrochlorothiazide 20-25 mg 1 tab PO DAILY HPI AWV HPI Details [facility] [place] [facility] [place] [facility] [place] [facility] [facility] [place], hand surgery Dr. Diaz HPI Comments History of Present Illness Details History of Present Illness The patient is a 70-year-old male presenting for an annual well visit. His past medical history is significant for hypertension, hypercholesterolemia, renal insufficiency, benign prostatic hyperplasia (BPH), gastroesophageal reflux disease (GERD), and lumbar radiculopathy with disc herniation. An ultrasound was previously performed for elevated liver function tests, which showed a right upper quadrant mass. A subsequent CT scan of the abdomen revealed a right hepatic lobe cystic lesion, a right kidney cyst, diverticular disease, and multilevel spondylosis. The imaging also showed hepatic steatosis. Recent repeat blood work showed improvement in his liver function tests. For BPH, the patient follows up with urology and is taking finasteride. A p rostate biopsy in July 2023 was benign, and his PSA was 7.93 on recent labs. He is under continued surveillance by urology. For low back pain and lumbar radiculopathy, he was seen at a spine center. Imaging showed a left L4-5 disc herniation into the foramen, and he is currently attending physical therapy. Neurosurgery advised that an endoscopic L4-5 left lateral discectomy could be an option if his condition worsens. Blood work from April 2025 showed mild anemia with a hemoglobin of 13.6, normal iron studies, and low vitamin B12. His LDL cholesterol was 97. The patient's last colonoscopy was in 2014. He reports a decades-long history of monthly dysphagia episodes related to not chewing food properly, for which a prior barium swallow was normal. Health Maintenance - Last colonoscopy was in 2014; patient is due for screening and a referral to gastroenterology will be placed. - Vaccinations: Patient recently complet ed the 2-dose shingles vaccine series. - Eye exam: Last seen by an eye doctor a bout a year ago with no reported issues like glaucoma. - Hypercholesterolemia management: LDL g oal is less than 130 mg/dL; his current LDL is 97 mg/dL on atorvastatin. - Hepatic steatosis management: Advised on healthy eating and staying active. - Vitamin B12 deficiency: Recommended garza pplementation with 1000 mcg once a day. - Mild anemia: Recommended iron suppleme nts with vitamin C. Social History - Alcohol Use: Reports drinking two alco holic beverages per week, at one time. - Tobacco Use: Denies ever smoking. - Illicit Substance Use: Denies any recr eational drug use. - Exercise: Currently attending physical therapy for a herniated disc and was advised to keep active for hepatic steatosis. Results - Labs (April 2025): Hgb 13.6 and Hct 4 1.4, indicating mild anemia. - Electrolytes normal, creatinine 1.23, glucose normal. - Iron studies normal. - Liver function tests were elevated but have improved on repeat testing. - LDL cholesterol 97. - PSA 7.93. - Vitamin B12 low; vitamin D, folic acid , and thyroid function normal. - Imaging: Abdominal ultrasound previous ly showed a right upper quadrant liver mass. - CT scan of the abdomen showed a right hepatic lobe cystic lesion, right kidney cyst, diverticular disease, BPH, and multilevel spondylosis, as well as hepatic steatosis. - Procedures: Prostate biopsy in 2022 was benign. - Last colonoscopy was in 2014. [facility] Medical History Wheezing Trigger finger, right middle finger Viral upper respiratory illness Urinary urgency Depression Neck pain with history of cervical spinal surgery Surgical History Hx of tonsillectomy S/P right knee arthroscopy History of cholecystectomy Family History Mother Breast cancer, Onset Age: 45 Asthma Father Type 1 diabetes Kidney transplanted HTN (hypertension) Sister Depression Mental health disorder Maternal Grandmother Pancreatic cancer Maternal Aunt Pancreatic cancer Paternal Grandfather Type 2 diabetes Paternal Uncle Type 2 diabetes Social History Household Members: Spouse Housing: House Are you a primary caregivers homecare to a significant other at home: No Do you presently have visiting nurse or other home services: No 75 years or older and lives alone: No Alcohol intake: current Alcohol intake frequency: other Comment: 2 days a week 1-2 drinks Patient Tobacco Use Status: Never used Tobacco Tobacco use type: Cigarette e-Cigarette/Vaping Use: Never Used Second Hand Smoke Exposure: No service: No Current occupational status: retired Current occupation: rt hand Cognitive needs: No Hearing needs: No Vision needs: Yes (glasses ) Questionnaire Medicare Wellness Checkup What [age] What gender do you identify with?: male During the past 4 weeks, how much have you been bothered by emotional problems such as feeling anxious, depressed, irritable, sad or downhearted, and blue?: slightly During the past 4 weeks, has your physical & emotional health limited your social activities with family, friends, neighbors, or groups?: not at all During the past 4 weeks, how much bodily pain have you generally had?: mild pain During the past 4 weeks, was someone available to help you if you needed & wanted help?: yes, as much as I wanted During the past 4 weeks, what was the hardest physical activity you could do for at least 2 minutes?: moderate Can you get to places out of walking distance without help? (For eg., can you travel alone on buses, taxis or drive your car?): Yes Can you go shopping for groceries or clothes without someone's help?: Yes Can you prepare your own meals?: Yes Can you do your housework without help?: Yes Because of any health problems, do you need the help of another person with your personal care needs such as eating, bathing, dressing or getting around the house?: No Can you handle your own money without help?: Yes During the past 4 weeks, how would you rate your health in general?: good During the past 4 weeks how have things been going for you?: good & bad parts about equal Are you having difficulties driving your car?: no Do you always fasten your seat belt when you are in a car?: yes, usually During past 4 weeks, have you been bothered by the following: never: Falling or dizzy when standing up, Sexual problems?, Trouble eating well? and Problems using the telephone?, seldom: Teeth or denture problems? and sometimes: Tiredness or fatigue? Have you fallen 2 or more times in the past year?: No Are you afraid of falling?: No Are you a smoker?: no During the past 4 weeks, how many drinks of wine, beer, or other alcoholic beverages did you have?: 2-5 drinks per week Do you exercise for about 20 minutes 3 or more times a week?: yes, some of the time Have you been given information to help with the following?: no: Hazards in your house that might hurt you? and no: Keeping track of your medications? How often do you have trouble taking medicines the way you have been told to take them?: sometimes I take medicine as prescribed How confident are you that you can control & manage most of your health problems?: somewhat confident PHQ-9 Over the last 2 weeks, how often have you been bothered by any of the following problems? 1. Little interest or pleasure in doing things: not at all 2. Feeling down, depressed, or hopeless: not at all 3. Trouble falling or staying asleep, or sleeping too much: not at all 4. Feeling tired or having little energy: several days 5. Poor appetite or overeating: not at all 6. Feeling bad about yourself - or that you are a failure or have let yourself or your family down: not at all 7. Trouble concentrating on things, such as reading the newspaper or watching television: not at all 8. Moving or speaking so slowly that other people could have noticed. Or the opposite - being so fidgety or restless that you have been moving around a lot more than usual: not at all 9. Thoughts that you would be better off or of hurting yourself in some way: not at all Total score: 1 Depression Screening Interpretation: Positive Depression Screening Done: Yes [id number] - PHQ-9 Billing: Yes Source: Developed by Drs. Jimy Head, Elizabeth Lay, Christopher Donahue and colleagues, with an educational niko from [employer]. Review of Systems Narrative Review of Systems - Constitutional: Denies fever, passing out, or dizziness. - HEENT: Denies vision problems other than requiring glasses and denies glaucoma. - Cardiovascular: Denies chest pain or waking up short of breath. - Gastrointestinal: Reports monthly episodes of dysphagia if food is not chewed properly, a chronic issue for decades. - Denies heartburn, nausea, vomiting, or coughing when eating. - Reports good bowel movements. - Genitourinary: Denies problems with urination and denies nocturia. - He notes he still needs to be mindful of bladder issues. - Musculoskeletal: No new surgeries. - Denies leg swelling. Const Denies poor appetite and Denies weakness Eyes Denies no additional complaints ENT Reports Normal hearing present, Denies dizziness, Denies nasal congestion, Denies tinnitus and Denies sore throat Card Denies chest pain, Denies syncope, Denies rapid heart rate and Denies dyspnea Resp Denies cough and Denies dyspnea GI Denies change in stool character, Reports constipation, Denies diarrhea, Denies nausea and Denies vomiting Denies dysuria and Denies urinary frequency Neuro Reports Normal hearing present, Denies confusion, Denies dizziness, Denies syncope and Denies weakness Psych Denies confusion Physical Exam Exam Exam: Physical Exam General: Cooperative, healthy appearing, comfortable, no acute distress and well developed Orientation: Patient oriented x3 Limitations: No limitations Head: Normal to inspection Ears: Hearing grossly normal bilaterally Nose: Normal external nose present Face and sinus: Normal facial exam Eyes: Appearance normal, both eyes and all related structures Neck: Normal visual inspection and Yes full ROM Respiratory: Normal respiratory effort and able to speak in complete sentences. Clear to auscultation bilaterally Cardiovascular: Regular rate and rhythm. Normal S1 and S2 GI: Normal to inspection. Soft to palpation and nontender Skin: No rashes or lesions noted Neuro: Patient oriented x3 Extremities: Normal to inspection Vital Signs: Last Vital Signs Temp 97.5 F 07/24/25 10:18 Pulse 74 07/24/25 10:18 BP 132/86 07/24/25 10:18 Pulse Ox 96 07/24/25 10:18 Oxygen Delivery Method Room Air 07/24/25 10:18 BMI result Body Mass Index 25.0 Const General: No confusion Orientation/consciousness: No confusion HEENT Head: Yes normocephalic Ears: external ears normal and TM's normal bilaterally Face and sinus: Yes normal facial exam Mouth: moist mucous membranes Throat: Yes tonsils normal Eyes Conjunctivae: conjunctivae normal Pupils: Equal, round and reactive pupils present and Pupil accommodation reflex normal Direct Ophthalmoscopy: normal light reflex Neck Neck: No lymphadenopathy Thyroid: Thyroid normal Chest Chest palpation & inspection: normal inspection of the chest Resp Effort & Inspection: normal respiratory effort and no audible wheezes Auscultation: clear to auscultation bilaterally, no crackles, no wheezes and lung sounds not diminished Cardio Rate: regular rate Rhythm: regular rhythm Peripheral pulses: radial pulses present and dorsalis pedis present GI Palpation (GI): no masses Auscultation: normal bowel sounds and normoactive bowel sounds Rectal Exam - Male: Yes deferred Skin General skin exam: no rashes or lesions noted Rashes: no rashes Neuro General: No confusion Cranial nerves: Yes Equal, round and reactive pupils present and Yes Normal hearing present Cognition (Neuro): normal cognition Gait exam (Neuro): Normal gait present Motor exam (neuro): 5/5 motor strength present throughout Deep tendon reflexes (DTR's): Right brachioradialis reflex intensity grade: 2+, Left brachioradialis reflex intensity grade: 2+, Right patellar reflex intensity grade: 2+ and Left patellar reflex intensity grade: 2+ Extrem General: No edema Assessment & Plan Assessment & Plan (1) Medicare annual wellness visit, subsequent: Code(s): Z00.00 - Encounter for general adult medical examination without abnormal findings Plan: Patient is advised to eat healthy, keep well hydrated, keep active and have adequate sleep. (2) Hypertension: Code(s): I10 - Essential (primary) hypertension Qualifiers: Hypertension type: primary hypertension Qualified Code(s): I10 - Essential (primary) hypertension Plan: Continue with blood pressure medication. Decrease salt intake and exercise on lisinopril hydrochlorothiazide (3) Hypercholesteremia: Code(s): E78.00 - Pure hypercholesterolemia, unspecified Plan: Avoid fried foods, chicken skin, eggs, butter margarine, pastries and meat. Be it pork or beef they have a lot of cholesterol LDL goal of less than 130 and triglyceride of less than 150 on atorvastatin 20 mg once a day (4) GERD (gastroesophageal reflux disease): Comment: October 2024Moderate gastroesophageal reflux with sliding hiatal hernia. Code(s): K21.9 - Gastro-esophageal reflux disease without esophagitis Plan: Avoid the foods that causes that usually spicy foods, tomato products, juices, coffee, soda and foods that your sensitive to. After eating do not lie down, allow 3-4 hours before in lie down. And keep the head of bed above 30 degrees to avoid the acid from going up. (5) LFT elevation: Code(s): R79.89 - Other specified abnormal findings of blood chemistry Plan: Continuing to monitor (6) BPH (benign prostatic hyperplasia): Comment: Prostate Biopsy Dr. Heri Ronquillo 07/2023 Code(s): N40.0 - Benign prostatic hyperplasia without lower urinary tract symptoms Qualifiers: Lower urinary tract symptom presence: symptoms present Lower urinary tract symptom detail: urinary frequency Qualified Code(s): N40.1 - Benign prostatic hyperplasia with lower urinary tract symptoms; R35.0 - Frequency of micturition Plan: Patient is being followed up by [facility] (7) Mild anemia: Code(s): D64.9 - Anemia, unspecified Plan: Continuing to monitor, stable (8) Lumbar back pain with radiculopathy affecting left lower extremity: Code(s): M54.16 - Radiculopathy, lumbar region Plan: Patient has seen neurosurgery and has advised physical therapy (9) Vitamin B12 deficiency: Code(s): E53.8 - Deficiency of other specified B group vitamins Plan: Vitamin B12 1000 mcg once a day (10) Colon cancer screening: Code(s): Z12.11 - Encounter for screening for malignant neoplasm of colon Plan Plan Patient was informed and verbally consented to the use of an ambient scribe for clinic note documentation during this visit. 1. Annual Health Maintenance The patient presents for a wellness visit. A referral will be placed with gastroenterology for a colonoscopy, as his last was in 2014. He was advised on the shingles vaccine, which he has completed. The rectal exam was deferred due to the upcoming colonoscopy. 2. Hypertension The patient's blood pressure is well controlled. He will continue his current medication of lisinopril hydrochlorothiazide. 3. Hypercholesterolemia The patient's LDL is 97, which is below the goal of 130. He will continue taking atorvastatin 20 mg once a day. 4. Gastroesophageal Reflux Disease (Gerd) Although the patient denies heartburn, he has a known history of reflux. The plan is to continue monitoring. He was advised to allow ample time between his last meal and lying down. 5. Benign Prostatic Hyperplasia (Bph) And Elevated Psa The patient is being followed by urology for BPH and is on finasteride. His recent PSA was 7.93, and a biopsy last year was benign. The plan is to continue monitoring with urology. 6. Lumbar Radiculopathy The patient is currently attending physical therapy for a left L4-5 disc herniation. He has been advised by neurosurgery that an endoscopic discectomy is an option if symptoms worsen. He will continue with conservative management. 7. Mild Anemia And Vitamin B12 Deficiency The patient was found to have mild anemia (Hgb 13.6) and a low vitamin B12 level. His iron studies were normal. It was recommended that he start taking vitamin B12 1000 mcg daily, as well as an iron supplement with vitamin C. The patient was counseled that iron supplements can cause constipation. 8. Hepatic Steatosis And Cysts The patient's imaging revealed hepatic steatosis and cysts in the liver and kidney. His liver function tests have improved. The patient was advised that fatty liver is managed with healthy eating and physical activity. The cysts will be monitored, and the upcoming gastroenterology visit for his colonoscopy will provide a second opinion on the liver cyst. Discussion Notes I reviewed the patient's medical history and recent results with him. We discussed that his blood pressure and cholesterol levels are well-controlled with his current medications. I explained the findings of hepatic steatosis (fatty liver) along with cysts in his liver and kidney, reinforcing that these are being monitored and that the cysts are not currently concerning. I informed him that his liver function labs have improved and advised that management for lorri euceda liver involves a healthy diet and staying active. We discussed that his last colonoscopy was in 2014, and he is now due for a repeat screening. I informed him a referral would be placed with [facility] for this procedure. The rectal exam was deferred in light of the upcoming colonoscopy. I informed him about his recent lab findings of mild anemia and low vitamin B12. I recommended he start [id number] vitamin B12 and an iron supplement, and I cautioned him about the potential for constipation with iron. We briefly reviewed his immunizations, noting he completed the shingles series. I advised him to contact us if any new problems arise. Patient Instructions - Continue taking your current medications for blood pressure, cholesterol, and prostate as prescribed. - Our office will send a referral to a specialist for a colonoscopy since it is time for your routine screening. - The specialist's office will call you to schedule the appointment. - For your fatty liver, continue to eat a healthy diet and stay physically active. - To help prevent acid reflux symptoms, avoid lying down for a couple of hours after eating. - Please start taking Vitamin B12 1000 mcg once a day. - You should also start an [id number] iron supplement to help with your mild anemia. - Taking it with Vitamin C can help your body absorb it, but be aware that iron can cause constipation. - Continue attending physical therapy for your back pain. - Continue to see your urologist for your prostate condition. - Please contact our office if you have any problems or questions before your next visit. Orders: Referrals Gastroenterology Referral R79.89 - Other specified abnormal findings of blood chemistry, Z12.11 - Encounter for screening for malignant neoplasm of colon Quality Reporting (2019) Depression/Bipolar (159/160/161/177) PHQ-9: Total score: 1 Coding Level of Care Code Medicare Subsequent (G0439) Diagnoses Medicare annual wellness visit, subsequent Z00.00 Primary hypertension I10 Hypertension type: primary hypertension Hypercholesteremia E78.00 GERD (gastroesophageal reflux disease) K21.9 LFT elevation R79.89 Benign prostatic hyperplasia with urinary frequency N40.1; R35.0 Lower urinary tract symptom presence: symptoms present Lower urinary tract symptom detail: urinary frequency Mild anemia D64.9 Lumbar back pain with radiculopathy affecting left lower extremity M54.16 Vitamin B12 deficiency E53.8 Colon cancer screening Z12.11 Additional Codes PHQ-9 - 76993 - PHQ-9 Billing: Yes ([id number])
[2025-07-24 10:18] VITALS: BP 132/86; PULSE 74; TEMP 36.4; O2SAT 96; BMI 25.0
== END 2025-07-24 11:33 | disposition home or self-care (01) ==
LOC: HO.HMCH 10:07
PROVIDERS: PCP Internal Medicine; Visit Provider Internal Medicine
DX: Z00.00 Encounter for general adult medical examination without abnormal findings (principal); I10 Essential (primary) hypertension; E78.00 Pure hypercholesterolemia, unspecified; K21.9 Gastro-esophageal reflux disease without esophagitis; R79.89 Other specified abnormal findings of blood chemistry; N40.1 Benign prostatic hyperplasia with lower urinary tract symptoms; R35.0 Frequency of micturition; D64.9 Anemia, unspecified; M54.16 Radiculopathy, lumbar region; E53.8 Deficiency of other specified B group vitamins; Z12.11 Encounter for screening for malignant neoplasm of colon

== ENCOUNTER → 2025-07-24 10:06 | Outpatient (BNVA) | payer MEDICARE, SELFPAY | PROVIDERS: PCP Internal Medicine; Visit Provider Internal Medicine | DX: Z00.00 Encounter for general adult medical examination without abnormal findings (principal); I10 Essential (primary) hypertension; E78.00 Pure hypercholesterolemia, unspecified; K21.9 Gastro-esophageal reflux disease without esophagitis; N40.0 Benign prostatic hyperplasia without lower urinary tract symptoms; M54.16 Radiculopathy, lumbar region; R79.89 Other specified abnormal findings of blood chemistry; N40.1 Benign prostatic hyperplasia with lower urinary tract symptoms; R35.0 Frequency of micturition; D64.9 Anemia, unspecified; E53.8 Deficiency of other specified B group vitamins; R97.20 Elevated prostate specific antigen [PSA] | CPT/HCPCS: 96127 ==